=== PATIENT | male | born 1945 | race Caucasian/White ===

== ENCOUNTER 2023-05-25 16:01 | Inpatient (IN) | payer MEDICARE, SELFPAY ==
[2023-05-25] VITALS (23 sets, daily range): BP systolic 87–148; BP diastolic 46–87; BMI 23.5; BMI 20.4
--- NOTE | 2023-05-25 11:13 | ED.GENMED ---
History of Present Illness
General
Chief Complaint: Weakness
Source: patient
Exam Limitations: none
Time Seen by Provider: 05/25/23 11:00
Travel History
Have you had any contact with someone who has COVID-19?: No
Do you have any symptoms of coronavirus? Fever > 100 degrees, chills, cough, shortness of breath, sore throat, loss of taste or smell, muscle aches, or headache?: No
History of Present Illness
History of Present Illness:
See MDM
Past History
Past History
ED Past Medical History: CAD, GERD, Hypercholesterolemia and Other (Mild MR, anemia, diverticulosis)
ED Past Surgical History: Cholecystectomy and Other (Gastric ulcer, cataracts)
Social History
Tobacco: Non-smoker
Alcohol: None
Drug: None
Living: assisted living
Phy Exam
Physical Exam
Physical Exam:
See MDM
Course
Orders/Labs/Results
Orders:
Orders
05/25/23 10:58
Electrocardiogram (*1) Urgent
Reason for Study: Chest Pain
EKG- Treatment ONCE
05/25/23 11:09
CT Pelvis W/o Iv Contrast Urgent
Comment:
Reason For Exam: fall, left hip pain and hematoma
05/25/23 11:11
CT Head W/o Iv Contrast Urgent
Comment:
Reason For Exam: fall, head injury
05/25/23 11:13
Urinalysis Reflex To Culture Urgent
Date Specimen was Collected: 05/25/23
Time Specimen was Collected: 11:46
05/25/23 11:49
Complete Blood Count/With Diff Urgent
Comprehensive Metabolic Panel Urgent
Troponin I Urgent
05/25/23 13:39
Acetaminophen [Tylenol] 650 mg PO NOW STA
Abnormal Lab Results
05/25/23
11:49
RBC 3.09 L 10^6/uL
(4.70-6.10)
Hgb 9.5 L g/dL
(13.0-18.0)
Hct 26.8 L %
(39.0-52.0)
RDW 17.4 H %
(11.5-14.5)
Abs Immat Gran (auto) 0.1 H 10^3/uL
(0-0.05)
Absolute Neuts (auto) 8.3 H 10^3/uL
(1.4-6.5)
Absolute Lymphs (auto) 0.4 L 10^3/uL
(1.2-3.4)
Neutrophils % 88.5 H %
(42.2-75.2)
Lymphocytes % 4.3 L %
(20.5-51.1)
Sodium 130 L mmol/L
(135-145)
BUN 39 H mg/dl
(9-20)
Glucose 214 H mg/dl
(70-99)
Total Bilirubin 1.5 H mg/dl
(0.2-1.3)
ALT 69 H U/L
(0-50)
Total Protein 5.8 L g/dl
(6.3-8.2)
Albumin 3.4 L g/dl
(3.5-5.0)
05/25/23 11:49
05/25/23 11:49
Vital Signs
Initial and Last Documented VS:
Initial Vital Signs
Temp Pulse Resp Pulse Ox
97.3 F 58 20 99
05/25/23 10:51 05/25/23 10:51 05/25/23 10:51 05/25/23 10:51
Last Documented Vital Signs
Temp Pulse Resp Pulse Ox
97.3 F 62 10 97
05/25/23 10:51 05/25/23 11:50 05/25/23 11:50 05/25/23 11:50
MDM/Problems Addressed
Differential Diagnosis Includes:
HPI and MDM Narrative:
78-year-old male presenting with weakness and fatigue. He complains of dizziness. Patient does have cognitive impairment and not the greatest historian but he answers most questions appropriately. Patient does not remember falling. He does not
member if he hit his head or not. He complains of left hip pain. On exam, patient has large left hip hematoma. He is on Eliquis. Will obtain CT head and CT pelvis in addition to basic blood work and urinalysis
Physical exam
General: Weak and fatigue
HEENT: protecting airway
Neck: appears supple
CV: No evidence of cyanosis. Regular rate and rhythm
Resp: No accessory muscle use. Lungs clear
Abd: Non-distended
Extremities: Large left posterior hip hematoma
Neuro: alert
Psych: Normal affect
Skin: Multiple bruises to upper extremities
Problems Addressed including Acute and Chronic Conditions affecting care:
1. Left hip trauma
Acuity: acute
Prognosis: stable
Details: Given the fall, will obtain CT head and pelvis
Updates
Blood work appears to be stable. Patient having trouble ambulating due to large thigh hematoma. No fracture on CT. Will admit for hemoglobin trending and pain control
Differential Diagnosis (but not limited to): Dehydration, UTI, hip fracture, hip hematoma
Testing considered: Chest x-ray
Drug therapy (if applicable): OTC meds, please see d/c instruction regarding Rx drugs
Amount and/or Complexity of Data Reviewed
Clinical info obtained from: Patient
External data reviewed: N/A
Labs I independently reviewed (but not limited to): Hemoglobin stable
Radiology: The CT scan was personally and independently reviewed. In addition, official CT report reviewed.
Pulse Ox: not hypoxic
EKG independently reviewed: Sinus rhythm, left axis, no STEMI
Design Draftsman: N/A
Critical Care: N/A
Risk of Complication:
Social Determinants of health: Good social support
Discussed with other providers: Hospitalist
Escalation of Care includes Admit/Obs: Given the large hematoma on Eliquis, will admit for hemoglobin trending and pain control
Occasional wrong word or 'sound a like' substitutions may have occurred due to the inherent limitations of voice recognition software. Read the chart carefully and recognize, using context, where substitutions have occurred.
*Critical Care Note
Total Time (30-74mins, 75-104mins- exclusive of procedures): Not Applicable
ED Attending Note
-
Portions of this chart may have been created with voice recognition software.� Occasional wrong word or��sound alike� substitutions may have occurred due to the inherent limitations of voice recognition software.
Discharge Plan
Departure
Patient Disposition: Admit
Date of Disposition: 05/25/23
Time of Disposition: 13:40
Admit to: Med/Surg
Presentation/result/management discussed w/ accepting MD/DO: Hospitalist
Discharge Problem:
Hematoma of left thigh, Frequent falls
Prescriptions:
No Action
lansoprazole [Prevacid] 30 MG capsule,delayed release(DR/EC)
30 mg PO DAILY
isosorbide mononitrate 30 MG tablet extended release 24 hr
30 mg PO DAILY
albuterol sulfate 2.5 MG/3 ML solution for nebulization
2.5 mg inhalation R Q4HPRN PRN (Reason: cough/wheeze)
dextromethorphan-guaifenesin 10 ML syrup
5 ml PO Q6HPRN PRN (Reason: cough)
alendronate 70 MG tablet
70 mg PO WE
atorvastatin 20 MG tablet
20 mg PO QPM
prednisone 5 MG tablet
5 mg PO DAILY
acetaminophen [Tylenol Extra Strength] 500 MG tablet
1,000 mg PO TIDPRN PRN (Reason: mild pain)
tamsulosin 0.4 MG capsule
0.4 mg PO QPM
ferrous sulfate [FeroSul] 325 MG tablet
325 mg PO BID
guaifenesin [Mucus Relief ER] 600 MG tablet extended release 12hr
600 mg PO BIDPRN PRN (Reason: cough/congestion)
levothyroxine 75 MCG tablet
75 mcg PO DAILY
furosemide 40 mg Tablet
40 mg PO DAILY
triamcinolone acetonide 0.5 % Cream
1 applic TOPICAL BID
fluorouracil 5 % Cream
1 applic TOPICAL BIDPRN PRN (Reason: actinic/solar keratoses)
calcium carbonate 600 mg calcium (1,500 mg) Tablet
600 mg PO QPM
finasteride 5 mg Tablet
5 mg PO DAILY
Eliquis 5 mg Tablet
5 mg PO BID
cholecalciferol (vitamin D3) [Vitamin D3] 25 mcg (1,000 unit) Tablet
25 mcg PO QPM
cephalexin 500 mg capsule
500 mg PO QID 10 Days Qty: 40 0RF
Referrals:
NONE,* [Active] -
Interventions
Interventions:
*Risk Screen - Suicide Last Done: 05/25/23 10:51
*General Assessment Last Done: 05/25/23 10:51
*Neglect/Abuse Screening Last Done: 05/25/23 10:51
ED- Fall Risk Assessment Last Done: 05/25/23 11:03
*ED COVID-19 Vaccine History Last Done: 05/25/23 11:03
ED- Cardiac Assessment Last Done: 05/25/23 11:03
ED-Musculoskeletal Assessment Last Done: 05/25/23 11:03
ED- Neurological Assessment Last Done: 05/25/23 11:03
ED- Pulmonary Assessment Last Done: 05/25/23 11:03
ED-Skin Assessment Last Done: 05/25/23 11:03
[2023-05-25 12:06] LABS: % Basophils 0.1 % (0-2); % Eosinophils 0.2 % (0-6); % Immature Granulocytes 0.5 % (0-0.5); % Lymphocytes 4.3 % (20.5-51.1); % Monocytes 6.4 % (1.7-9.3); % Neutrophils 88.5 % (42.2-75.2); Absolute Immature Granulocytes 0.1 10^3/uL (0-0.05); Absolute Lymphocytes 0.4 10^3/uL (1.2-3.4); Absolute Monocytes 0.6 10^3/uL (0.1-0.6); Absolute Neutrophils 8.3 10^3/uL (1.4-6.5); Hematocrit 26.8 % (39.0-52.0); Hemoglobin 9.5 g/dL (13.0-18.0); Mean Corp Hgb Conc. 35.4 g/dL (33.0-37.0); Mean Corpuscular Hgb 30.7 pg (27.0-31.0); Mean Corpuscular Volume 86.7 fL (80.0-94.0); Mean Platelet Volume 9.7 fL (7.4-10.4); Nucleated Red Blood Cells % 0 % (-); Platelet Count 136 10^3/uL (130-400); Red Blood Cell Count 3.09 10^6/uL (4.70-6.10); Red Cell Dist. Width 17.4 % (11.5-14.5); White Blood Cell Count 9.4 10^3/uL (4.8-10.8)
[2023-05-25 12:25] LABS: Troponin I < 0.012 ng/ml
[2023-05-25 12:30] LABS: ALT (SGPT) 69 U/L (0-50); AST (SGOT) 55 U/L (17-59); Albumin 3.4 g/dl (3.5-5.0); Alkaline Phosphatase 88 U/L (38-126); Blood Urea Nitrogen 39 mg/dl (9-20); Calcium 8.5 mg/dl (8.4-10.2); Carbon Dioxide 22 mmol/L (22-30); Chloride 102 mmol/L (98-107); Glucose 214 mg/dl (70-99); Sodium 130 mmol/L (135-145); Total Bilirubin 1.5 mg/dl (0.2-1.3); Total Protein 5.8 g/dl (6.3-8.2); eGFR > 60.00
[2023-05-25] MEDS: TYLENOL 650 MG PO ×2 (13:47→20:08)
[2023-05-25 14:12] LABS: Urine Albumin Negative (Neg - Trace); Urine Bilirubin Negative (Negative); Urine Character Clear (Clear); Urine Color Yellow; Urine Glucose Negative (Negative); Urine Ketone Negative (Negative); Urine Leukocyte Negative (Negative); Urine Nitrite Negative (Negative); Urine Occult Blood Negative (Negative); Urine Urobilinogen Negative (Neg - 1+)
--- NOTE | 2023-05-25 14:44 | HPS.HSE ---
Addendum entered and electronically signed by Ubaldo Pena MD 05/25/23 15:54:
78-year-old male with a past medical history of cognitive impairment, esophagitis, asthma, coronary artery disease, gastroesophageal reflux disease, mitral regurgitation, hyperlipidemia, hypothyroidism, and diabetes had a mechanical fall this
morning, resulting in a left-sided hematoma of the thigh. He is on Eliquis.
Will trend hemoglobin, hold Eliquis, pain control, PT/OT.
Patient was also noted to be hypothermic, rectal temperature 94.4. He has no signs of or symptoms of infection. Check procalcitonin, blood cultures, chest x-ray, urinalysis for completeness sake. Check TSH, a.m. cortisol.
Multiple phone calls were made to patient's brother and to the facility to check patient's CODE STATUS,we were unable to reach anyone.
I have personally seen and examined the patient, and agree with the plan of care as documented by COSTA Romero
Advance care planning discussed, patient is a full code.
All other issues as outlined by the advanced care practitioner.
Total time spent to see the patient on the floor, examine the patient, review data and lab results, discuss treatment plan with patient, nursing staff around 75 minutes.
Original Note:
Family Physician
-
Family Physician: NOT KNOW UNKNOWN - PT DOES
Chief Complaint
-
Fall left hip contusion left knee contusion left arm abrasion
History of Present Illness
78-year-old male from [facility] who states after breakfast this morning he fell onto his left side sustaining a left forearm abrasion, left hip contusion and left knee effusion/contusion. He is complaining of a headache. He is
hypothermic with a rectal temp of 94.1. He denies cough, chest pain, palpitations, shortness of breath. Patient is past medical history of right lower extremity cellulitis with sepsis and hypothermia December 2022 that did require pressors and
bear hugger, DVT right peroneal vein on Eliquis, mild mental retardation, CAD, mild MR, GERD, asthma, hypothyroidism, sinus bradycardia, BPH.
Medical History
Past Medical History
Past Medical History: Reports Other
Additional Past Medical History:
right lower extremity cellulitis with sepsis and hypothermia December 2022 that did require pressors and bear hugger, DVT right peroneal vein on Eliquis, mild mental retardation, CAD, mild MR, GERD, asthma, hypothyroidism, sinus bradycardia, BPH.
Past Surgical History: Reports None
Social History
Tobacco: Non-smoker
Alcohol: None
Drug: None
Personal: Single
Living: Other ([facility])
Employment: Retired
Family History
Family History: Unable to Obtain
Allergies / Home Medications
Allergies reflects when Allergies were last updated in [employer].
Home Medications with original date entered in [employer]
Allergy/Medication List:
Allergies
Allergy/AdvReac Type Severity Reaction Status Date / Time
No Known Allergies Allergy Verified 05/25/23 10:51
Home Medications
lansoprazole 30 mg capsule,delayed release (Prevacid) 30 mg PO DAILY Gastrointestinal issue 05/25/08
isosorbide mononitrate 30 mg tablet,extended release 24 hr 30 mg PO DAILY Heart disease/condition 06/11/15
acetaminophen 500 mg tablet (Tylenol Extra Strength) 1,000 mg PO TIDPRN PRN mild pain 08/10/20
alendronate 70 mg tablet 70 mg PO WE osteoporosis 08/10/20
ferrous sulfate 325 mg (65 mg iron) tablet (FeroSul) 325 mg PO BID Supplement 08/10/20
prednisone 5 mg tablet 5 mg PO DAILY Anti-inflammatory 08/10/20
tamsulosin 0.4 mg capsule 0.4 mg PO QPM Urinary issue 08/10/20
apixaban 5 mg tablet (Eliquis) 5 mg PO BID Blood Clot Prevention/Tx 01/21/23
cholecalciferol (vitamin D3) 25 mcg (1,000 unit) tablet (Vitamin D3) 25 mcg PO QPM Supplement 01/21/23
finasteride 5 mg tablet 5 mg PO DAILY Urinary Issue 01/21/23
fluorouracil 5 % topical cream 1 applic topical BIDPRN PRN actinic/solar keratoses 01/21/23
furosemide 40 mg tablet 40 mg PO DAILY Fluid Retention/Swelling 01/21/23
triamcinolone acetonide 0.5 % topical cream 1 applic topical BIDPRN PRN skin issuses 01/21/23
levothyroxine 88 mcg tablet (Synthroid) 88 mcg PO DAILY 05/25/23
metformin 500 mg tablet 500 mg PO BID 05/25/23
Review of Systems
-
History Source: Patient
A 12 point ROS was completed and negative except as noted: Yes
Constitutional: Reports Fever (Hypothermia) and Chills
EENT: Denies Sore Throat or Runny Nose
Respiratory: Denies Cough or Trouble Breathing
Cardiac: Denies Chest Pain, Diaphoresis, Palpitations or Syncope
Abdomen/GI: Denies Abdominal Pain, Nausea, Vomiting, Diarrhea, Constipated or Bloody Stools
: Denies Dysuria, Frequency, Flank Pain, Incontinence, Difficulty Voiding or Urgency
Musculoskeletal: Reports Joint Pain (Left hip contusion) and Joint Swelling (Left knee contusion/effusion)
Skin: Reports Other (Left forearm abrasion); Denies Itching or Rash
Neurological: Reports Headache; Denies Dizzy
Endocrine: Reports No Symptoms
Hematologic/Lymphatic: Reports No Symptoms
Psych: Reports Calm
Physical Exam
Vital Signs
Vital Signs
Temp Pulse Resp Pulse Ox
97.3 F 62 10 97
05/25/23 10:51 05/25/23 11:50 05/25/23 11:50 05/25/23 11:50
Physical Exam
General: Comfortable, Conversant, Fever (Hypothermia 94.1 rectal) and Chills; No Pain
HEENT: NormoCephalic, Anicteric, Moist mucous membranes, Atraumatic, PERRLA, [place] Conjunctivae, No Ptosis and Neck Nontender
Respiratory: Clear; No Wheezes, Rales or Rhonchi
Cardiac: S1/S2 and Regular Rhythm; No Murmur, Rub, Gallop or Peripheral Edema
Breast: Deferred by me
GI: Soft, Non Tender, Non Distended, Normal Bowel Sounds and No Hepatosplenomegaly
Rectal: Deferred by Provider
Genito-urinary: Deferred by me
Musculoskeletal: No Clubbing, No Cyanosis, Edema, Left Lower Extremity (Chronic +1), Edema, Right Lower Extremity (Chronic +1) and Other (Left thigh large hematoma, left knee contusion with effusion, left forearm abrasion from fall present on
admission); No Edema, Left Upper Extremity or Edema, Right Upper Extremity
Skin: Warm and Dry; No Rash or Jaundice
Neuro: AO x 3, No Motor Deficits, Nonfocal/grossly intact, Cranial Nerves Intact and No Sensory Deficits; No Slurred Speech, Facial Droop or Tremors
Psych: Calm
Laboratory Results
-
05/25/23 11:49
05/25/23 11:49
Laboratory Results
Total Bilirubin 1.5 mg/dl (0.2-1.3) H 05/25/23 11:49
AST 55 U/L (17-59) 05/25/23 11:49
ALT 69 U/L (0-50) H 05/25/23 11:49
Alkaline Phosphatase 88 U/L (38-126) 05/25/23 11:49
Troponin I < 0.012 ng/ml 05/25/23 11:49
Data Reviewed
-
CT Scan: Report Reviewed by me
Lab Data: Labs Reviewed by me
Impression/Plan
-
Impression/plan:
Inpatient IMU
#Acute hypothermia concern for sepsis
-Check CXR, blood cultures x 2, lactic acid
-Bear hugger
-Monitor off ABX
- check Procal
#Fall with Right THIGH HEMTOMA/Right KNEE EFFUSION on Eliquis
#Hx frequent falls/chronic ambulatory dysfunction(uses cane/walker at baseline)
#Chronic anemia-iron deficiency
-Hgb 9.5
-Follow H&H
CT pelvis without contrast: No acute abnormality small bilateral inguinal hernias
CT head: No acute intracranial abnormalities. Mild diffuse cortical and cerebellar atrophy
#Hx DVT right peroneal vein
-Eliquis
#Mild mental retardation-chronic
Patient oriented x3 is able to give history
#CAD
-Follows with Dr. Reardon as outpatient
-Continue Imdur 30 mg with hold parameters
#Mitral regurgitation
#GERD
-Continue Prevacid
#Asthma chronic�no acute exacerbation
-On chronic prednisone will hold on Stress dose steroids as BP stable
#Hypothyroidism
-Check TSH with free T4 reflex
-Continue Synthroid
#Hx sinus bradycardia
#BPH
Continue finasteride with hold parameters
Hx RLE cellulitis with sepsis December 2022
-Patient did require IV pressors, hypothermia protocol for this admission
DVT prophylaxis
Hold Eliquis
DNR
Unable to reach brother as phone number does not work refer to recent mission in January where other provider was also unable to reach brother it was confirmed at that time from the facility the patient was DNR
[2023-05-25 15:58] LABS: Lactic Acid 1.6 mmol/L (0.7-2.0)
[2023-05-25 16:22] LABS: COVID-19 Antigen Negative (Negative)
[2023-05-25 16:49] LABS: Procalcitonin < 0.05 ng/ml (0.0-0.25)
[2023-05-25] MEDS: NSS 1000 IV (17:12)
[2023-05-25] MEDS: ProAmatine 5 MG PO (17:12)
[2023-05-25 20:00] LABS: Glucose - Point of Care 81 mg/dl (70-99)
[2023-05-25] MEDS: GLUCOPHAGE 500 MG PO (20:08)
[2023-05-25] MEDS: FEOSOL 325 MG PO (20:08)
[2023-05-25] MEDS: FLOMAX 0.400000000000000022 MG PO (20:08)
[2023-05-25] MEDS: VITAMIN D3 (cholecalciferol) 25 MCG PO (20:08)
[2023-05-25] MEDS: NOVOLOG FLEXPEN-LOW RESISTANCE SC (20:41)
[2023-05-25 23:40] LABS: Hematocrit 23.7 % (39.0-52.0); Hemoglobin 8.6 g/dL (13.0-18.0)
[2023-05-26] VITALS (19 sets, daily range): BP systolic 78–130; BP diastolic 41–63; PULSE 67; O2SAT 97; BMI 20.5
[2023-05-26] MEDS: TYLENOL 650 MG PO ×6 (01:50→21:02)
[2023-05-26 04:39] LABS: Glucose - Point of Care 73 mg/dl (70-99)
[2023-05-26] MEDS: NSS 1000 IV ×2 (04:47→16:58)
[2023-05-26 04:52] LABS: % Basophils 0.2 % (0-2); % Eosinophils 1.7 % (0-6); % Immature Granulocytes 0.2 % (0-0.5); % Lymphocytes 16.9 % (20.5-51.1); Absolute Eosinophils 0.1 10^3/uL (0-0.7); Absolute Lymphocytes 0.7 10^3/uL (1.2-3.4); Absolute Monocytes 0.5 10^3/uL (0.1-0.6); Absolute Neutrophils 2.9 10^3/uL (1.4-6.5); Hematocrit 22.7 % (39.0-52.0); Hemoglobin 7.8 g/dL (13.0-18.0); Mean Corp Hgb Conc. 34.4 g/dL (33.0-37.0); Mean Corpuscular Hgb 30.8 pg (27.0-31.0); Mean Corpuscular Volume 89.7 fL (80.0-94.0); Mean Platelet Volume 9.9 fL (7.4-10.4); Nucleated Red Blood Cells % 0 % (-); Platelet Count 121 10^3/uL (130-400); Red Blood Cell Count 2.53 10^6/uL (4.70-6.10); Red Cell Dist. Width 16.9 % (11.5-14.5); White Blood Cell Count 4.2 10^3/uL (4.8-10.8)
[2023-05-26] MEDS: SYNTHROID 88 MCG PO (05:08)
[2023-05-26 05:33] LABS: ALT (SGPT) 52 U/L (0-50); AST (SGOT) 34 U/L (17-59); Albumin 2.4 g/dl (3.5-5.0); Alkaline Phosphatase 67 U/L (38-126); Blood Urea Nitrogen 34 mg/dl (9-20); Calcium 7.8 mg/dl (8.4-10.2); Carbon Dioxide 24 mmol/L (22-30); Chloride 106 mmol/L (98-107); Estimated Creatinine Clearance 59 ml/min; Glucose 65 mg/dl (70-99); Potassium 4.6 mmol/L (3.5-5.1); Sodium 134 mmol/L (135-145); Total Bilirubin 1.3 mg/dl (0.2-1.3); Total Protein 4.6 g/dl (6.3-8.2); eGFR > 60.00
[2023-05-26 05:47] LABS: Cortisol, Random 2.9 ug/dl; TSH 6.03 uIU/ml (0.47-4.68)
--- NOTE | 2023-05-26 06:05 | PTCARENOTE ---
Assumed care of Pt from ED RN. PT AAOx1 knew he was at hospital. Pt appears to be comfortable in bed, drowsy. In core shaper Pt BP became low, Midodrine given. Pt glucose 71 orange juice also given. Reassessment Pt appears more awake and alert.
Assessment care and vitals as charted.
[2023-05-26] MEDS: ProAmatine 5 MG PO ×3 (06:15→16:59)
[2023-05-26 06:26] LABS: Glucose - Point of Care 71 mg/dl (70-99)
[2023-05-26] MEDS: NOVOLOG FLEXPEN-LOW RESISTANCE SC ×3 (07:48→18:00)
[2023-05-26 07:56] LABS: Glucose - Point of Care 89 mg/dl (70-99)
--- NOTE | 2023-05-26 08:41 | W.PN.HOSP.TC ---
Today's Communication/Plan
-
see bold
Assessment / Plan
Assessment / Plan
HPI: 78-year-old male with a past medical history of cognitive impairment, esophagitis, asthma, coronary artery disease, gastroesophageal reflux disease, mitral regurgitation, hyperlipidemia, hypothyroidism, and diabetes had a mechanical fall this
morning, resulting in a left-sided hematoma of the thigh.� He is on Eliquis.
#Acute blood loss anemia exacerbated by Eliquis superimposed on chronic anemia
#Left thigh traumatic hematoma
#Left knee effusion
Pelvis CT negative for fracture or dislocation, left lower extremity CT confirms left thigh hematoma
Hemoglobin 8.1 today, was 9.5 upon admission
Hold Eliquis, pain control, trend hemoglobin
#Transient hypotension
Blood pressure improved on IV fluids and midodrine 5 mg 3 times daily
AM cortisol low, will do ACTH stim test
#Hypothyroidism
-TSH 6.03, increase from 88 mcg daily to 100 mcg daily
-Repeat thyroid function test in 4 to 6 weeks
#Hypothermia
Chest x-ray/urinalysis negative, procalcitonin negative
Continue Abbie hugger prn, increase Synthroid as above, supportive care
#Asthma chronic�no acute exacerbation
-On chronic prednisone
#Contaminated blood cultures
Monitor off antibiotics
#Mechanical fall
#Chronic ambulatory dysfunction(uses cane/walker at baseline)
Head CT negative, patient resides in longterm
PT/OT
#Hx DVT right peroneal vein
Hold Eliquis due to hematoma
#Chronic cognitive impairment
Patient resides in longterm
#CAD
Follows with Dr. Reardon as outpatient
Continue Imdur 30 mg with hold parameters � �
�� � � � � � � � � � � � � � � � � � � � � � � � � � � � � � � � � �
#Mitral regurgitation
#GERD
-Continue Prevacid
#BPH
Continue finasteride with hold parameters
DVT prophylaxis - SCDs
DNR as per advance directive
Total time spent to see the patient on the floor, examine the patient, review data and lab results, discuss treatment plan with patient, nursing staff around 55 minutes.
Physical Exam
General: No acute distress
HEENT: Normocephalic, Atraumatic, EOMI, MMM
Respiratory: Clear to Auscultation bilaterally
Cardiac: Normal S1/S2, Regular Rate and Rhythm
GI: Soft, Nontender, Nondistended, Normal Bowel Sounds
Extremities: No Clubbing, Cyanosis
Large left knee effusion, hematoma noted on left
Neuro: Slow to respond
Anticipated Discharge: > 48 hours
Subjective/Interval History
-
Date of Service: May 26, 2023
C/o left hip pain.
Objective Data
-
Labs:
Laboratory Results
05/25/23 05/26/23 05/26/23
23:28 04:29 04:29
WBC 4.2 L
Hgb 8.6 L 7.8 L Cancelled
Hct 23.7 L 22.7 L
Plt Count
Sodium
Potassium
Chloride
Carbon Dioxide
BUN
Creatinine
Glucose
Calcium
Total Bilirubin
AST
ALT
Alkaline Phosphatase
05/26/23 05/26/23
04:29 12:00
WBC
Hgb Pending
Hct Cancelled Pending
Plt Count 121 L
Sodium 134 L
Potassium 4.6
Chloride 106
Carbon Dioxide 24
BUN 34 H
Creatinine 1.0
Glucose 65 L
Calcium 7.8 L
Total Bilirubin 1.3
AST 34
ALT 52 H
Alkaline Phosphatase 67
Vital Signs:
Vital Signs
Temp Pulse Resp BP Pulse Ox
97.6 F 69 17 104/41 97
05/26/23 05:10 05/26/23 06:18 05/26/23 06:18 05/26/23 06:18 05/26/23 06:18
I&O
05/25/23 05/26/23 05/27/23
06:59 06:59 06:59
Intake Total 1360 / 1360
Output Total 850 / 850
Balance 510 / 510
[2023-05-26] MEDS: PROTONIX 40 MG PO (08:58)
[2023-05-26] MEDS: FEOSOL 325 MG PO ×2 (08:58→21:02)
[2023-05-26] MEDS: PROSCAR 5 MG PO (08:58)
[2023-05-26] MEDS: GLUCOPHAGE 500 MG PO ×2 (09:08→16:58)
[2023-05-26] MEDS: IMDUR (EXTENDED RELEASE) 30 MG PO (09:08)
[2023-05-26 12:30] LABS: Glucose - Point of Care 181 mg/dl (70-99)
[2023-05-26 13:40] LABS: Glucose - Point of Care 127 mg/dl (70-99)
[2023-05-26 14:04] LABS: Hemoglobin 8.1 g/dL (13.0-18.0)
--- NOTE | 2023-05-26 16:31 | CM ---
Patient from [facility] with Hx including cognitive impairment with Dx Acute blood loss anemia exacerbated by Eliquis superimposed on chronic anemia, Left thigh traumatic hematoma, Left knee effusion.
Spoke with Delfina, Health & Wellness nurse, [facility] (ph [phone]);
the patient resides in their 1 story facility with 3 LISET or ramp access, and has a shared bedroom.
He has been assisted with ADLs such as showering, and ambulates with his SPC.
The patient has poor mobility at baseline and a w/c is used for long distances.
He is able to feed himself.
DME - SPC, glucometer, w/c
VVN - prior [facility]
SNF - none
PCP - Marissa Whaley NP
Pharmacy - [facility] [address], [place]
Spoke with José Miguel Flores, Mechanical Dra[employer] [facility] (ph [phone]);
the patient has a Dx of mental retardation and has mild intellectual disability.
The patient fell on the day of admission and sustained a hematoma of his left forearm as well as his left thigh.
Discussed patient's current functional status; José Miguel said he is probably close to his baseline and she would prefer that the patient return to their facility with [facility] for SN/PT/OT.
The patient will need transport arranged and José Miguel will provide CC for w/c van transport.
The patient's brother Abdirashid Alcaraz is his POA and he resides in [place] - ph [phone]. José Miguel notified him that patient was in the hospital.
The phone for nurse report is [phone], fax [phone].
Referral placed for [facility].
Plan home to [facility], with transport arranged.
[2023-05-26] MEDS: FLOMAX 0.400000000000000022 MG PO (17:00)
[2023-05-26] MEDS: VITAMIN D3 (cholecalciferol) 25 MCG PO (17:00)
[2023-05-26 17:40] LABS: Glucose - Point of Care 114 mg/dl (70-99)
[2023-05-26 21:39] LABS: Glucose - Point of Care 125 mg/dl (70-99)
[2023-05-27] VITALS (10 sets, daily range): BP systolic 98–156; BP diastolic 46–68; BMI 21.0
--- NOTE | 2023-05-27 00:05 | PTCARENOTE ---
Assumed care of Pt from Day RN. Pt AAOX2 appears to be resting in bed comfortably. Pt had no complaints at that time. Pt temp has remained above goal. Pt Assessment, care and vitals as charted.
[2023-05-27] MEDS: TYLENOL 650 MG PO ×6 (01:19→21:10)
[2023-05-27] MEDS: NSS 1000 IV ×2 (01:19→10:03)
[2023-05-27] MEDS: SYNTHROID 100 MCG PO (05:33)
[2023-05-27 07:54] LABS: Glucose - Point of Care 75 mg/dl (70-99)
--- NOTE | 2023-05-27 08:01 | W.PN.HOSP.TC ---
Addendum entered and electronically signed by Ubaldo Pena MD 05/27/23 12:41:
Will start prednisone 20 mg daily for adrenal insufficiency.
Cancel endocrinology consult.
Original Note:
Today's Communication/Plan
-
Stable for telemetry
Assessment / Plan
Assessment / Plan
HPI: 78-year-old male with a past medical history of cognitive impairment, esophagitis, asthma, coronary artery disease, gastroesophageal reflux disease, mitral regurgitation, hyperlipidemia, hypothyroidism, and diabetes had a mechanical fall this
morning, resulting in a left-sided hematoma of the thigh.� He is on Eliquis.
#Acute blood loss anemia exacerbated by Eliquis superimposed on chronic anemia
#Left thigh traumatic hematoma
#Left knee effusion
Pelvis CT negative for fracture or dislocation, left lower extremity CT confirms left thigh hematoma, left forearm x-rays negative
Hemoglobin 7.7 today, was 7.8, was 9.5 upon admission
Hold Eliquis, pain control, trend hemoglobin
#Transient hypotension
Blood pressure improved on IV fluids and midodrine 5 mg 3 times daily, will stop IVFs
AM cortisol low, ACTH stim test concerning for adrenal sufficiency, will consult endocrinology
#Hypothyroidism
-TSH 6.03, increase from 88 mcg daily to 100 mcg daily
-Repeat thyroid function test in 4 to 6 weeks
#Hypothermia
Chest x-ray/urinalysis negative, procalcitonin negative
Continue Abbie hugger prn, increase Synthroid as above, supportive care
#Asthma chronic�no acute exacerbation
-On chronic prednisone
#Contaminated blood cultures
Monitor off antibiotics
#Mechanical fall
#Chronic ambulatory dysfunction(uses cane/walker at baseline)
Head CT negative, patient resides in correction
PT/OT
#Hx DVT right peroneal vein
Hold Eliquis due to hematoma
#Chronic cognitive impairment
Patient resides in correction
#CAD
Follows with Dr. Reardon as outpatient
Continue Imdur 30 mg with hold parameters � �
�� � � � � � � � � � � � � � � � � � � � � � � � � � � � � � � � � �
#Mitral regurgitation
#GERD
-Continue Prevacid
#BPH
Continue finasteride with hold parameters
DVT prophylaxis - SCDs
DNR as per advance directive
Total time spent to see the patient on the floor, examine the patient, review data and lab results, discuss treatment plan with patient, nursing staff around 51 minutes.
Physical Exam
General: No acute distress
HEENT: Normocephalic, Atraumatic, EOMI, MMM
Respiratory: Clear to Auscultation bilaterally
Cardiac: Normal S1/S2, Regular Rate and Rhythm
GI: Soft, Nontender, Nondistended, Normal Bowel Sounds
Extremities: No Clubbing, Cyanosis
Large left knee effusion, hematoma noted on left
Neuro: Slow to respond
Anticipated Discharge: 24 - 48 hours
Subjective/Interval History
-
Date of Service: May 27, 2023
Patient complains of left hip pain.
Objective Data
-
Labs:
Laboratory Results
05/27/23
06:00
WBC Pending
Hgb Pending
Hct Pending
Plt Count Pending
Sodium Pending
Potassium Pending
Chloride Pending
Carbon Dioxide Pending
BUN Pending
Creatinine Pending
Glucose Pending
Calcium Pending
Total Bilirubin Pending
AST Pending
ALT Pending
Alkaline Phosphatase Pending
Vital Signs:
Vital Signs
Temp Pulse Resp BP Pulse Ox
97.5 F 68 15 98/52 95
05/27/23 03:38 05/27/23 06:01 05/27/23 06:01 05/27/23 06:01 05/27/23 06:01
I&O
05/26/23 05/27/23 05/28/23
06:59 06:59 06:59
Intake Total 1360 / 1360 840 / 840
Output Total 850 / 850 825 / 825
Balance 510 / 510
[2023-05-27 08:22] LABS: % Basophils 0.7 % (0-2); % Eosinophils 1.8 % (0-6); % Immature Granulocytes 0.5 % (0-0.5); % Lymphocytes 11.3 % (20.5-51.1); % Monocytes 14.9 % (1.7-9.3); % Neutrophils 70.8 % (42.2-75.2); Absolute Eosinophils 0.1 10^3/uL (0-0.7); Absolute Lymphocytes 0.5 10^3/uL (1.2-3.4); Absolute Monocytes 0.7 10^3/uL (0.1-0.6); Absolute Neutrophils 3.1 10^3/uL (1.4-6.5); Hematocrit 22.3 % (39.0-52.0); Hemoglobin 7.7 g/dL (13.0-18.0); Mean Corp Hgb Conc. 34.5 g/dL (33.0-37.0); Mean Corpuscular Hgb 30.7 pg (27.0-31.0); Mean Corpuscular Volume 88.8 fL (80.0-94.0); Mean Platelet Volume 9.9 fL (7.4-10.4); Nucleated Red Blood Cells % 0 % (-); Platelet Count 122 10^3/uL (130-400); Red Blood Cell Count 2.51 10^6/uL (4.70-6.10); Red Cell Dist. Width 17.6 % (11.5-14.5); White Blood Cell Count 4.4 10^3/uL (4.8-10.8)
[2023-05-27 08:47] LABS: ALT (SGPT) 46 U/L (0-50); AST (SGOT) 31 U/L (17-59); Albumin 2.6 g/dl (3.5-5.0); Alkaline Phosphatase 71 U/L (38-126); Blood Urea Nitrogen 25 mg/dl (9-20); Carbon Dioxide 21 mmol/L (22-30); Chloride 108 mmol/L (98-107); Estimated Creatinine Clearance 67 ml/min; Glucose 75 mg/dl (70-99); Potassium 4.7 mmol/L (3.5-5.1); Sodium 133 mmol/L (135-145); Total Bilirubin 1.6 mg/dl (0.2-1.3); Total Protein 4.9 g/dl (6.3-8.2); eGFR > 60.00
[2023-05-27] MEDS: PROSCAR 5 MG PO (08:55)
[2023-05-27] MEDS: GLUCOPHAGE 500 MG PO ×2 (08:55→16:06)
[2023-05-27] MEDS: ProAmatine 5 MG PO ×3 (08:55→16:06)
[2023-05-27] MEDS: CORTROSYN 0.25 MG IV (08:59)
[2023-05-27] MEDS: IMDUR (EXTENDED RELEASE) 30 MG PO (08:59)
[2023-05-27] MEDS: FEOSOL 325 MG PO ×2 (08:59→21:10)
[2023-05-27] MEDS: PROTONIX 40 MG PO (08:59)
[2023-05-27] MEDS: NSS (PRESERVATIVE FREE) 1 ML IV (09:00)
[2023-05-27 09:08] LABS: ACTH Stim Cortisol 0 Min 8.1 ug/dl
[2023-05-27] MEDS: NOVOLOG FLEXPEN-LOW RESISTANCE SC ×2 (09:10→12:43)
[2023-05-27 10:35] LABS: ACTH Stim Cortisol 30 Min 12.9 ug/dl
[2023-05-27 11:39] LABS: ACTH Stim Cortisol 60 Min 13.4 ug/dl
[2023-05-27 12:54] LABS: Glucose - Point of Care 111 mg/dl (70-99)
[2023-05-27] MEDS: DELTASONE 20 MG PO (13:13)
[2023-05-27 16:59] LABS: Glucose - Point of Care 181 mg/dl (70-99)
[2023-05-27] MEDS: FLOMAX 0.400000000000000022 MG PO (17:18)
[2023-05-27] MEDS: VITAMIN D3 (cholecalciferol) 25 MCG PO (17:18)
[2023-05-27] MEDS: NOVOLOG FLEXPEN-LOW RESISTANCE 1 UNITS SC (17:40)
[2023-05-27 21:22] LABS: Glucose - Point of Care 192 mg/dl (70-99)
[2023-05-28] VITALS (9 sets, daily range): BP systolic 129–156; BP diastolic 59–77; BMI 20.8
[2023-05-28] MEDS: TYLENOL PO ×2 (00:20→05:03)
[2023-05-28] MEDS: SYNTHROID 100 MCG PO (05:38)
--- NOTE | 2023-05-28 07:28 | W.PN.HOSP.TC ---
Today's Communication/Plan
-
Transfuse 1 unit of packed red blood cells today
Assessment / Plan
Assessment / Plan
HPI: 78-year-old male with a past medical history of cognitive impairment, esophagitis, asthma, coronary artery disease, gastroesophageal reflux disease, mitral regurgitation, hyperlipidemia, hypothyroidism, and diabetes had a mechanical fall this
morning, resulting in a left-sided hematoma of the thigh.� He is on Eliquis.
#Acute blood loss anemia exacerbated by Eliquis superimposed on chronic anemia
#Left thigh traumatic hematoma
#Left knee effusion
Pelvis CT negative for fracture or dislocation, left lower extremity CT confirms left thigh hematoma, left forearm x-rays negative
Hemoglobin 7.4 today, was 7.7, was 7.8, was 9.5 upon admission
Transfuse 1 unit of packed red blood cells today since he is symptomatic,
Hold Eliquis, pain control, trend hemoglobin
#Adrenal insufficiency
Patient is on prednisone 5 mg daily for his asthma
Will increase to prednisone 20 mg daily due to hypotension, hypothermia
#Transient hypotension
Resolved status post IV fluids, midodrine
#Hypothyroidism
-TSH 6.03, increased from 88 mcg daily to 100 mcg daily
-Repeat thyroid function test in 4 to 6 weeks
#Hypothermia
Chest x-ray/urinalysis negative, procalcitonin negative
Continue Abbie hugger prn, increase Synthroid as above, prednisone as above
#Asthma chronic�no acute exacerbation
-On chronic prednisone
#Contaminated blood cultures
Monitor off antibiotics
#Mechanical fall
#Chronic ambulatory dysfunction(uses cane/walker at baseline)
Head CT negative, patient resides in care home
PT/OT
#Hx DVT right peroneal vein
Hold Eliquis due to hematoma
#Chronic cognitive impairment
Patient resides in care home
#CAD
Follows with Dr. Reardon as outpatient
Continue Imdur 30 mg with hold parameters � �
�� � � � � � � � � � � � � � � � � � � � � � � � � � � � � � � � � �
#Mitral regurgitation
#GERD
-Continue Prevacid
#BPH
Continue finasteride with hold parameters
DVT prophylaxis - SCDs
DNR as per advance directive
Total time spent to see the patient on the floor, examine the patient, review data and lab results, discuss treatment plan with patient, nursing staff around 52 minutes.
Physical Exam
General: No acute distress
HEENT: Normocephalic, Atraumatic, EOMI, MMM
Respiratory: Clear to Auscultation bilaterally
Cardiac: Normal S1/S2, Regular Rate and Rhythm
GI: Soft, Nontender, Nondistended, Normal Bowel Sounds
Extremities: No Clubbing, Cyanosis
Large left knee effusion, hematoma noted on left
Neuro: Slow to respond
Anticipated Discharge: 24 - 48 hours
Subjective/Interval History
-
Date of Service: May 28, 2023
Patient reports lightheadedness.
Objective Data
-
Labs:
Laboratory Results
05/28/23
06:00
WBC Pending
Hgb Pending
Hct Pending
Plt Count Pending
Sodium Pending
Potassium Pending
Chloride Pending
Carbon Dioxide Pending
BUN Pending
Creatinine Pending
Glucose Pending
Calcium Pending
Total Bilirubin Pending
AST Pending
ALT Pending
Alkaline Phosphatase Pending
Vital Signs:
Vital Signs
Temp Pulse Resp BP Pulse Ox
97.4 F 91 18 154/74 96
05/28/23 03:33 05/28/23 03:33 05/28/23 03:33 05/28/23 03:33 05/28/23 03:33
I&O
05/27/23 05/28/23 05/29/23
06:59 06:59 06:59
Intake Total 840 / 840 360 / 360
Output Total 825 / 825 1730 / 1730
Balance -1370 / -1370
[2023-05-28 07:42] LABS: Glucose - Point of Care 106 mg/dl (70-99)
[2023-05-28] MEDS: NOVOLOG FLEXPEN-LOW RESISTANCE SC ×2 (08:04→11:51)
[2023-05-28 08:39] LABS: % Basophils 0.2 % (0-2); % Eosinophils 0.2 % (0-6); % Immature Granulocytes 0.5 % (0-0.5); % Lymphocytes 7.4 % (20.5-51.1); % Monocytes 14.5 % (1.7-9.3); % Neutrophils 77.2 % (42.2-75.2); Absolute Lymphocytes 0.5 10^3/uL (1.2-3.4); Absolute Monocytes 0.9 10^3/uL (0.1-0.6); Absolute Neutrophils 4.9 10^3/uL (1.4-6.5); Hemoglobin 7.4 g/dL (13.0-18.0); Mean Corp Hgb Conc. 35.4 g/dL (33.0-37.0); Mean Corpuscular Hgb 31.5 pg (27.0-31.0); Mean Corpuscular Volume 88.9 fL (80.0-94.0); Mean Platelet Volume 10.2 fL (7.4-10.4); Nucleated Red Blood Cells % 0 % (-); Platelet Count 143 10^3/uL (130-400); Red Blood Cell Count 2.35 10^6/uL (4.70-6.10); Red Cell Dist. Width 17.6 % (11.5-14.5); White Blood Cell Count 6.3 10^3/uL (4.8-10.8)
[2023-05-28 08:42] LABS: Hematocrit 20.9 % (39.0-52.0)
[2023-05-28] MEDS: GLUCOPHAGE 500 MG PO ×2 (09:04→17:03)
[2023-05-28] MEDS: FEOSOL 325 MG PO ×2 (09:04→19:27)
[2023-05-28] MEDS: IMDUR (EXTENDED RELEASE) 30 MG PO (09:04)
[2023-05-28] MEDS: PROTONIX 40 MG PO (09:04)
[2023-05-28] MEDS: TYLENOL 650 MG PO ×5 (09:04→23:56)
[2023-05-28] MEDS: PROSCAR 5 MG PO (09:06)
[2023-05-28] MEDS: DELTASONE 20 MG PO (09:06)
[2023-05-28 09:15] LABS: ALT (SGPT) 38 U/L (0-50); AST (SGOT) 25 U/L (17-59); Albumin 2.7 g/dl (3.5-5.0); Alkaline Phosphatase 78 U/L (38-126); Blood Urea Nitrogen 19 mg/dl (9-20); Calcium 8.7 mg/dl (8.4-10.2); Carbon Dioxide 20 mmol/L (22-30); Chloride 108 mmol/L (98-107); Estimated Creatinine Clearance 67 ml/min; Glucose 93 mg/dl (70-99); Iron 36 ug/dl (49-181); Potassium 4.8 mmol/L (3.5-5.1); Sodium 136 mmol/L (135-145); Total Bilirubin 1.6 mg/dl (0.2-1.3); Total Protein 5.1 g/dl (6.3-8.2); eGFR > 60.00
[2023-05-28 09:24] LABS: Percent Saturation 13 % (20-50); Total Iron Binding Capacity 267 ug/dl (261-462)
[2023-05-28 11:48] LABS: Glucose - Point of Care 91 mg/dl (70-99)
[2023-05-28 16:37] LABS: Glucose - Point of Care 211 mg/dl (70-99)
[2023-05-28] MEDS: VITAMIN D3 (cholecalciferol) 25 MCG PO (17:03)
[2023-05-28] MEDS: NOVOLOG FLEXPEN-LOW RESISTANCE 2 UNITS SC (17:03)
[2023-05-28] MEDS: FLOMAX 0.400000000000000022 MG PO (17:03)
[2023-05-28 21:43] LABS: Glucose - Point of Care 125 mg/dl (70-99)
[2023-05-29 03:26] VITALS: BP 130/63
[2023-05-29] MEDS: TYLENOL PO ×3 (05:04→17:35)
[2023-05-29] MEDS: SYNTHROID 100 MCG PO (05:42)
[2023-05-29 07:00] VITALS: BP 132/57
[2023-05-29 07:45] LABS: Glucose - Point of Care 87 mg/dl (70-99)
[2023-05-29 07:50] LABS: Hematocrit 23.4 % (39.0-52.0); Hemoglobin 8.1 g/dL (13.0-18.0); Mean Corp Hgb Conc. 34.6 g/dL (33.0-37.0); Mean Corpuscular Hgb 30.7 pg (27.0-31.0); Mean Corpuscular Volume 88.6 fL (80.0-94.0); Mean Platelet Volume 10.3 fL (7.4-10.4); Platelet Count 145 10^3/uL (130-400); Red Blood Cell Count 2.64 10^6/uL (4.70-6.10); Red Cell Dist. Width 17.2 % (11.5-14.5); White Blood Cell Count 6.2 10^3/uL (4.8-10.8)
[2023-05-29 08:08] LABS: Blood Urea Nitrogen 27 mg/dl (9-20); Calcium 8.8 mg/dl (8.4-10.2); Carbon Dioxide 21 mmol/L (22-30); Chloride 109 mmol/L (98-107); Estimated Creatinine Clearance 55 ml/min; Glucose 87 mg/dl (70-99); Magnesium 1.7 mg/dl (1.6-2.3); Phosphorus 3.4 mg/dl (2.5-4.5); Potassium 4.7 mmol/L (3.5-5.1); Sodium 137 mmol/L (135-145); eGFR > 60.00
--- NOTE | 2023-05-29 08:14 | W.PN.HOSP.TC ---
Today's Communication/Plan
-
see bold
Assessment / Plan
Assessment / Plan
HPI: 78-year-old male with a past medical history of cognitive impairment, esophagitis, asthma, coronary artery disease, gastroesophageal reflux disease, mitral regurgitation, hyperlipidemia, hypothyroidism, and diabetes had a mechanical fall this
morning, resulting in a left-sided hematoma of the thigh.� He is on Eliquis.
#Acute blood loss anemia exacerbated by Eliquis superimposed on chronic anemia
#Left thigh traumatic hematoma
#Left knee effusion
Pelvis CT negative for fracture or dislocation, left lower extremity CT confirms left thigh hematoma, left forearm x-rays negative
Received 1 unit of blood on 05/28, Hemoglobin 8.1 today, was 7.4, was 7.7, was 7.8, was 9.5 upon admission
Hold Eliquis, pain control, trend hemoglobin
#Adrenal insufficiency
Patient is on prednisone 5 mg daily for his asthma
S/p prednisone 20 mg daily due to hypotension, hypothermia
Wean to prednisone 10 mg daily, plan to resume 5 mg upon dc
#Transient hypotension
Resolved status post IV fluids, midodrine
#Hypothyroidism
-TSH 6.03, increased from 88 mcg daily to 100 mcg daily
-Repeat thyroid function test in 4 to 6 weeks
#Hypothermia
Chest x-ray/urinalysis negative, procalcitonin negative
Resolved, increase Synthroid as above, prednisone as above
#Asthma chronic�no acute exacerbation
-On chronic prednisone
#Contaminated blood cultures
Monitor off antibiotics
#Mechanical fall
#Chronic ambulatory dysfunction(uses cane/walker at baseline)
Head CT negative, patient resides in intermediate
PT/OT
#Hx DVT right peroneal vein
Hold Eliquis due to hematoma
#Chronic cognitive impairment
Patient resides in intermediate
#CAD
Follows with Dr. Reardon as outpatient
Continue Imdur 30 mg with hold parameters � �
�� � � � � � � � � � � � � � � � � � � � � � � � � � � � � � � � � �
#Mitral regurgitation
#GERD
-Continue Prevacid
#BPH
Continue finasteride with hold parameters
DVT prophylaxis - SCDs
DNR as per advance directive
Physical Exam
General: No acute distress
HEENT: Normocephalic, Atraumatic, EOMI, MMM
Respiratory: Clear to Auscultation bilaterally
Cardiac: Normal S1/S2, Regular Rate and Rhythm
GI: Soft, Nontender, Nondistended, Normal Bowel Sounds
Extremities: No Clubbing, Cyanosis
Large left knee effusion, hematoma noted on left
Neuro: Slow to respond
Anticipated Discharge: Within 24 hours
Subjective/Interval History
-
Date of Service: May 29, 2023
Feels better.
Objective Data
-
Labs:
Laboratory Results
05/29/23
07:11
WBC 6.2
Hgb 8.1 L
Hct 23.4 L
Plt Count 145
Sodium 137
Potassium 4.7
Chloride 109 H
Carbon Dioxide 21 L
BUN 27 H
Creatinine 1.1
Glucose 87
Calcium 8.8
Vital Signs:
Vital Signs
Temp Pulse Resp BP Pulse Ox
97.9 F 67 16 130/63 96
05/29/23 03:26 05/29/23 03:26 05/29/23 03:26 05/29/23 03:26 05/29/23 03:26
I&O
05/28/23 05/29/23 05/30/23
06:59 06:59 06:59
Intake Total 360 / 360 850 / 850
Output Total 1730 / 1730 1405 / 1405
Balance -1370 / -1370 -555 / -555
[2023-05-29] MEDS: NOVOLOG FLEXPEN-LOW RESISTANCE SC ×2 (08:55→12:32)
[2023-05-29] MEDS: TYLENOL 650 MG PO ×2 (10:26→17:37)
[2023-05-29] MEDS: DELTASONE 20 MG PO (10:26)
[2023-05-29] MEDS: GLUCOPHAGE 500 MG PO ×2 (10:32→17:38)
[2023-05-29] MEDS: FEOSOL 325 MG PO (10:32)
[2023-05-29] MEDS: IMDUR (EXTENDED RELEASE) 30 MG PO (10:33)
[2023-05-29] MEDS: PROTONIX 40 MG PO (10:33)
[2023-05-29] MEDS: PROSCAR 5 MG PO (10:33)
[2023-05-29 11:00] VITALS: BP 121/67
[2023-05-29 11:17] VITALS: BP 144/75; PULSE 80; O2SAT 98
[2023-05-29 11:57] LABS: Glucose - Point of Care 92 mg/dl (70-99)
--- NOTE | 2023-05-29 12:55 | CM ---
Addendum entered by Gena Garnett 05/29/23 14:18:
CM received call from [facility], reports the facility has no nurse over the weekend and would want to ensure patient is stable to return if over the weekend. Per José Miguel, she will be calling nurse for an update on patient. José Miguel
reports facility does provide transportation but will not accept patient over weekend unless stable. José Miguel provided general number for CM to call over weekend if needed- [phone].
Original Note:
Patient seen bedside, reports no new concerns. Per Hospitalist, possible discharge tomorrow or Thursday. CM left voicemail for José Miguel Flores, [facility] at [facility] [phone] in regards to patients upcoming
discharge. CM awaiting return call from José Miguel, will follow for discharge planning needs.
Plan; return to [facility], patient will require transport, per previous CM note, [facility] will provide CC for w/c van transport. Referral sent to [facility]
The phone for nurse report is [phone], fax [phone].
[2023-05-29 15:00] VITALS: BP 132/62
[2023-05-29 17:16] LABS: Glucose - Point of Care 189 mg/dl (70-99)
[2023-05-29] MEDS: NOVOLOG FLEXPEN-LOW RESISTANCE 1 UNITS SC (17:37)
[2023-05-29] MEDS: FLOMAX 0.400000000000000022 MG PO (17:38)
[2023-05-29] MEDS: VITAMIN C 500 MG PO (17:38)
[2023-05-29] MEDS: VITAMIN D3 (cholecalciferol) 25 MCG PO (17:39)
[2023-05-29 21:33] LABS: Glucose - Point of Care 242 mg/dl (70-99)
[2023-05-29 22:47] VITALS: BP 130/59
[2023-05-30] MEDS: TYLENOL PO ×2 (00:05→04:15)
[2023-05-30 02:07] LABS: Transferrin 191 mg/dL (200-360)
[2023-05-30] MEDS: TYLENOL 650 MG PO ×5 (05:24→19:37)
[2023-05-30] MEDS: SYNTHROID 100 MCG PO (05:26)
[2023-05-30 07:00] VITALS: BP 128/56
[2023-05-30 08:03] LABS: Glucose - Point of Care 94 mg/dl (70-99)
[2023-05-30] MEDS: NOVOLOG FLEXPEN-LOW RESISTANCE SC (08:31)
--- NOTE | 2023-05-30 09:01 | W.PN.HOSP.TC ---
Today's Communication/Plan
-
Discharge back to [facility] on Thursday
Assessment / Plan
Assessment / Plan
HPI: 78-year-old male with a past medical history of cognitive impairment, esophagitis, asthma, coronary artery disease, gastroesophageal reflux disease, mitral regurgitation, hyperlipidemia, hypothyroidism, and diabetes had a mechanical fall this
morning, resulting in a left-sided hematoma of the thigh.� He is on Eliquis.
#Acute blood loss anemia exacerbated by Eliquis superimposed on chronic anemia
#Left thigh traumatic hematoma
#Left knee effusion
Pelvis CT negative for fracture or dislocation, left lower extremity CT confirms left thigh hematoma, left forearm x-rays negative
Received 1 unit of blood on 05/28, Hemoglobin 8.4 today, was 7.4, was 7.7, was 7.8, was 9.5 upon admission
Hold Eliquis, pain control, trend hemoglobin
#Adrenal insufficiency
Patient is on prednisone 5 mg daily for his asthma
S/p prednisone 20 mg daily due to hypotension, hypothermia
Wean to prednisone 10 mg daily, plan to resume 5 mg upon dc
#Transient hypotension
Resolved status post IV fluids, midodrine
#Hypothyroidism
-TSH 6.03, increased from 88 mcg daily to 100 mcg daily
-Repeat thyroid function test in 4 to 6 weeks
#Hypothermia
Chest x-ray/urinalysis negative, procalcitonin negative
Resolved, increase Synthroid as above, prednisone as above
#Asthma chronic�no acute exacerbation
-On chronic prednisone
#Contaminated blood cultures
Monitor off antibiotics
#Mechanical fall
#Chronic ambulatory dysfunction(uses cane/walker at baseline)
Head CT negative, [facility] in [facility]
PT/OT
#Hx DVT right peroneal vein
Hold Eliquis due to hematoma
Check lower extremity Dopplers�patient may not need to be on Eliquis anymore
#Chronic cognitive impairment
[facility] resides in [facility]
#CAD
Follows with Dr. Reardon as outpatient
Continue Imdur 30 mg with hold parameters � �
�� � � � � � � � � � � � � � � � � � � � � � � � � � � � � � � � � �
#Mitral regurgitation
#GERD
-Continue Prevacid
#BPH
Continue finasteride with hold parameters
DVT prophylaxis - SCDs
DNR as per advance directive
Physical Exam
General: No acute distress
HEENT: Normocephalic, Atraumatic, EOMI, MMM
Respiratory: Clear to Auscultation bilaterally
Cardiac: Normal S1/S2, Regular Rate and Rhythm
GI: Soft, Nontender, Nondistended, Normal Bowel Sounds
Extremities: No Clubbing, Cyanosis
Large left knee effusion, hematoma noted on left
Neuro: Slow to respond
Anticipated Discharge: 24 - 48 hours
Subjective/Interval History
-
Date of Service: May 30, 2023
No acute events.
Objective Data
-
Labs:
Laboratory Results
05/30/23
08:19
WBC Pending
Hgb Pending
Hct Pending
Plt Count Pending
Sodium Pending
Potassium Pending
Chloride Pending
Carbon Dioxide Pending
BUN Pending
Creatinine Pending
Glucose Pending
Calcium Pending
Vital Signs:
Vital Signs
Temp Pulse Resp BP Pulse Ox
97.1 F 66 18 130/59 100
05/29/23 22:47 05/29/23 22:47 05/29/23 22:47 05/29/23 22:47 05/29/23 22:47
I&O
05/29/23 05/30/23 05/31/23
06:59 06:59 06:59
Intake Total 850 / 850 1400 / 1400
Output Total 1405 / 1405 1450 / 1450
Balance -555 / -555 -50 / -50
[2023-05-30 09:04] LABS: Hematocrit 24.1 % (39.0-52.0); Hemoglobin 8.5 g/dL (13.0-18.0); Mean Corp Hgb Conc. 35.3 g/dL (33.0-37.0); Mean Platelet Volume 9.9 fL (7.4-10.4); Platelet Count 181 10^3/uL (130-400); Red Blood Cell Count 2.74 10^6/uL (4.70-6.10); Red Cell Dist. Width 17.4 % (11.5-14.5)
[2023-05-30 09:34] LABS: Blood Urea Nitrogen 33 mg/dl (9-20); Calcium 8.9 mg/dl (8.4-10.2); Carbon Dioxide 22 mmol/L (22-30); Chloride 107 mmol/L (98-107); Estimated Creatinine Clearance 60 ml/min; Glucose 91 mg/dl (70-99); Potassium 4.9 mmol/L (3.5-5.1); Sodium 137 mmol/L (135-145); eGFR > 60.00
[2023-05-30] MEDS: IMDUR (EXTENDED RELEASE) 30 MG PO (09:40)
[2023-05-30] MEDS: PROTONIX 40 MG PO (09:42)
[2023-05-30] MEDS: PROSCAR 5 MG PO (09:42)
[2023-05-30] MEDS: DELTASONE 10 MG PO (09:42)
[2023-05-30] MEDS: GLUCOPHAGE 500 MG PO ×2 (09:42→17:51)
--- NOTE | 2023-05-30 10:20 | CM ---
Addendum entered by Pauline Morel 05/30/23 12:59:
TC to [facility], spoke with Flo, unable to accept back until Thursday.
Addendum entered by Pauline Morel 05/30/23 11:51:
Left Message for Lilliana at [facility], await tcb.
Addendum entered by Pauline Morel 05/30/23 11:37:
Again attempted to contact facility re d/c today. Await TCB.
Original Note:
Left VM for [facility] [phone] re d/c today.
Await TCB.
Need to see if they are transporting.
[facility]
The phone for nurse report is [phone], fax [phone].
--- NOTE | 2023-05-30 10:42 | PTCARENOTE ---
Assumed care of pt from previous nurse. Pt denies pain. Dressing placed to left arm abrasion, some bloody drainage noted. Pt with swelling and bruising to left knee and left upper thigh. Dressing to left upper thigh intact. Pt call [facility] is within
reach, pt rings kristian. Will cont to monitor.
[2023-05-30 11:52] LABS: Glucose - Point of Care 167 mg/dl (70-99)
[2023-05-30 13:20] LABS: Glucose - Point of Care 153 mg/dl (70-99)
[2023-05-30] MEDS: NOVOLOG FLEXPEN-LOW RESISTANCE 1 UNITS SC ×2 (13:24→17:53)
[2023-05-30] MEDS: FEOSOL 325 MG PO (13:25)
[2023-05-30] MEDS: VITAMIN C 500 MG PO (13:25)
[2023-05-30 15:00] VITALS: BP 146/68
[2023-05-30 17:16] LABS: Glucose - Point of Care 163 mg/dl (70-99)
[2023-05-30] MEDS: VITAMIN D3 (cholecalciferol) 25 MCG PO (17:52)
[2023-05-30] MEDS: FLOMAX 0.400000000000000022 MG PO (17:52)
[2023-05-30 23:00] VITALS: BP 150/67
[2023-05-31] MEDS: TYLENOL PO ×3 (01:03→23:56)
[2023-05-31] MEDS: SYNTHROID 100 MCG PO (05:46)
[2023-05-31 07:00] VITALS: BP 159/67
[2023-05-31 07:15] LABS: Glucose - Point of Care 87 mg/dl (70-99)
[2023-05-31] MEDS: NOVOLOG FLEXPEN-LOW RESISTANCE SC ×2 (07:31→12:24)
[2023-05-31 08:06] LABS: Hematocrit 26.1 % (39.0-52.0); Hemoglobin 8.8 g/dL (13.0-18.0); Mean Corp Hgb Conc. 33.7 g/dL (33.0-37.0); Mean Corpuscular Hgb 29.9 pg (27.0-31.0); Mean Corpuscular Volume 88.8 fL (80.0-94.0); Mean Platelet Volume 9.6 fL (7.4-10.4); Platelet Count 220 10^3/uL (130-400); Red Blood Cell Count 2.94 10^6/uL (4.70-6.10); Red Cell Dist. Width 17.3 % (11.5-14.5); White Blood Cell Count 5.7 10^3/uL (4.8-10.8)
--- NOTE | 2023-05-31 08:37 | W.PN.HOSP.TC ---
Today's Communication/Plan
-
Medically stable for discharge
care home won't accept back until Thursday
Assessment / Plan
Assessment / Plan
HPI: 78-year-old male with a past medical history of cognitive impairment, esophagitis, asthma, coronary artery disease, gastroesophageal reflux disease, mitral regurgitation, hyperlipidemia, hypothyroidism, and diabetes had a mechanical fall this
morning, resulting in a left-sided hematoma of the thigh.� He is on Eliquis.
#Acute blood loss anemia exacerbated by Eliquis superimposed on chronic anemia
#Left thigh traumatic hematoma
#Left knee effusion
Pelvis CT negative for fracture or dislocation, left lower extremity CT confirms left thigh hematoma, left forearm x-rays negative
Received 1 unit of blood on 05/28, Hemoglobin 8.8 today, was 8.5, was 8.1, was 7.4, was 7.7, was 7.8, was 9.5 upon admission
Medically stable for discharge, alf will not accept until Thursday
#Adrenal insufficiency
Patient is on prednisone 5 mg daily for his asthma
S/p prednisone 20 mg daily due to hypotension, hypothermia
Currently on prednisone 10 mg daily, decrease back to 5 mg today
#Transient hypotension
Resolved status post IV fluids, midodrine
#Hypothyroidism
-TSH 6.03, increased synthroid from 88 mcg daily to 100 mcg daily
-Repeat thyroid function test in 4 to 6 weeks
#Hypothermia
Chest x-ray/urinalysis negative, procalcitonin negative
Resolved, increase Synthroid as above, prednisone as above
#Asthma chronic�no acute exacerbation
-On chronic prednisone
#Contaminated blood cultures
Monitor off antibiotics
#Mechanical fall
#Chronic ambulatory dysfunction(uses cane/walker at baseline)
Head CT negative, patient resides in alf
PT/OT
#Hx DVT right peroneal vein
Hold Eliquis due to hematoma
2/3�lower extremity Dopplers negative, permanently discontinue Eliquis due to fall risk
#Chronic cognitive impairment
Patient resides in alf
#CAD
Follows with Dr. Reardon as outpatient
Continue Imdur 30 mg with hold parameters � �
�� � � � � � � � � � � � � � � � � � � � � � � � � � � � � � � � � �
#Mitral regurgitation
#GERD
-Continue Prevacid
#BPH
Continue finasteride with hold parameters
DVT prophylaxis - SCDs
DNR as per advance directive
Physical Exam
General: No acute distress
HEENT: Normocephalic, Atraumatic, EOMI, MMM
Respiratory: Clear to Auscultation bilaterally
Cardiac: Normal S1/S2, Regular Rate and Rhythm
GI: Soft, Nontender, Nondistended, Normal Bowel Sounds
Extremities: No Clubbing, Cyanosis
Large left knee effusion, hematoma noted on left
Neuro: Slow to respond
Anticipated Discharge: Within 24 hours
Subjective/Interval History
-
Date of Service: May 31, 2023
Patient reports feeling better. Denies lightheadedness.
Objective Data
-
Labs:
Laboratory Results
05/31/23
07:28
WBC 5.7
Hgb 8.8 L
Hct 26.1 L
Plt Count 220 D
Vital Signs:
Vital Signs
Temp Pulse Resp BP Pulse Ox
97.5 F 59 20 150/67 100
05/30/23 23:00 05/30/23 23:00 05/30/23 23:00 05/30/23 23:00 05/30/23 23:00
I&O
05/30/23 05/31/23 06/01/23
06:59 06:59 06:59
Intake Total 1400 / 1400 1200 / 1200
Output Total 1450 / 1450 1700 / 1700
Balance -50 / -50 -500 / -500
[2023-05-31] MEDS: TYLENOL 650 MG PO ×4 (09:14→20:41)
[2023-05-31] MEDS: GLUCOPHAGE 500 MG PO ×2 (09:14→17:19)
[2023-05-31] MEDS: PROTONIX 40 MG PO (09:14)
[2023-05-31] MEDS: DELTASONE 10 MG PO (09:14)
[2023-05-31] MEDS: IMDUR (EXTENDED RELEASE) 30 MG PO (09:15)
[2023-05-31] MEDS: PROSCAR 5 MG PO (09:15)
--- NOTE | 2023-05-31 11:44 | PTCARENOTE ---
Assumed care of pt from previous, pt denies pain. Pt call [facility] is within reach, pt rings kristian. will cont to monitor.
[2023-05-31 12:03] LABS: Glucose - Point of Care 131 mg/dl (70-99)
[2023-05-31] MEDS: VITAMIN C 500 MG PO (13:12)
[2023-05-31] MEDS: FEOSOL 325 MG PO (13:12)
--- NOTE | 2023-05-31 13:15 | W.DCSUMMARY ---
Addendum entered and electronically signed by Ubaldo Pena MD 06/08/23 15:39:
Yes, _hypothermia__ is related to/associated with/due to _hypothyroidism.
Addendum entered and electronically signed by Larry Varner MD 06/01/23 11:49:
Patient discharge date changed to May 31 patient seen and considered stable for discharge by this examiner nothing additional to add to discharge summary dictated yesterday
Original Note:
Discharge Summary
Discharge Data
Date of Admission: 05/25/23
Date of Discharge: 06/01/23
-
Pending Results: No
Hospital Course
Primary diagnoses:
Acute blood loss anemia exacerbated by Eliquis superimposed on chronic anemia
Left thigh hematoma
Left knee effusion
Adrenal sufficiency
Transient hypotension
Hypothermia
Hypothyroidism
Asthma on chronic prednisone
Contaminated blood cultures
Mechanical fall
History of deep vein thrombosis of the right peroneal vein
Secondary diagnoses:
Chronic cognitive impairment
Coronary artery disease
Mitral regurgitation
Gastroesophageal reflux disease
Benign prostatic hypertrophy
Small bilateral inguinal hernias
Imaging:
CT pelvis:
No acute abnormalities
Small bilateral inguinal hernias.
CT left lower extremity:
2.5 x 5.5 x 10.0 cm hematoma in the anterior and anteromedial soft tissues of the left leg at and below the level of the left knee
B/l LE Dopplers:
No evidence of deep venous thrombosis in the bilateral lower extremities as described above.
Hospital course:
78-year-old male with past medical history of right lower extremity DVT on Eliquis, cognitive impairment, hypothermia, asthma on chronic prednisone, and hypothyroidism was admitted for a large left thigh hematoma secondary to a traumatic mechanical
fall while on Eliquis.
CT of the left lower extremity demonstrated a hematoma at the left thigh. Patient's Eliquis was held. He received supportive treatment with pain control. His hemoglobin was 9.5 upon admission, and dropped as low as 7.4. He was transfused 1 unit
of packed red blood cells, his hemoglobin improved to 8.1, remained stable at 8.8.
Patient was found to be hypotensive. This resolved with IV fluids and midodrine. Midodrine was discontinued.
He was also found to be hypothermic. He has hypothyroidism, TSH was elevated. His Synthroid was increased from 88 mcg to 100 mcg. He needs repeat TFTs in 4-6 weeks.
Patient is on chronic prednisone for his asthma. He was found to have adrenal sufficiency. He is usually on prednisone 5 mg daily. He was treated with prednisone 20 mg daily, then weaned down to his home dose of 5 mg daily.
Patient was on Eliquis prior to admission for history of right lower extremity DVT. Dopplers on 05/30/2023 were negative for DVT. He is at high risk for mechanical falls, therefore we recommend permanently discontinuing Eliquis. He will be
discharged on aspirin 81 mg twice a day for DVT prophylaxis.
Patient's multiple medical conditions have been optimized. He is medically stable for discharge back to his alf. He needs to follow-up with his primary care doctor in 1 week.
Disposition: Back to his alf with home PT
Discharge planning: Required 43 minutes
Discharge Plan
-
Patient Disposition: Home with Home Care
Discharge Diagnosis/Procedures: Mechanical fall with large left thigh hematoma, left knee effusion, acute blood loss anemia requiring 1 unit of packed red blood cells, adrenal sufficiency, hypotension, hypothermia, cognitive impairment, type 2
diabetes
Condition: Good
Diet: Regular
Activity: As tolerated
Other Services: PT
Activity Restrictions/Additional Instructions:
TSH 6.03, increased synthroid/levothyroxine from 88 mcg daily to 100 mcg daily.
Patient needs repeat thyroid function test in 4 to 6 weeks.
Lower extremity ultrasound on 05/30/2023 was negative for deep vein thrombosis.
Recommend permanently stopping Eliquis secondary to recurrent falls.
Would instead take aspirin 81 mg twice a day for blood clot prevention.
Referrals:
UNKNOWN - PT DOES,NOT KNOW [Family Provider] -
Prescriptions:
New
levothyroxine 100 mcg Tablet
100 mcg PO DAILY AT 0700 Qty: 0 0RF
ascorbic acid (vitamin C) [Vitamin C] 500 mg Tablet
500 mg PO NOON Qty: 0 0RF
ferrous sulfate [FeroSul] 325 mg (65 mg iron) Tablet
325 mg PO NOON Qty: 30 0RF
aspirin 81 mg capsule
81 mg PO BID Qty: 60 0RF
Continued
lansoprazole [Prevacid] 30 MG capsule,delayed release(DR/EC)
30 mg PO DAILY
isosorbide mononitrate 30 MG tablet extended release 24 hr
30 mg PO DAILY
alendronate 70 MG tablet
70 mg PO WE
prednisone 5 MG tablet
5 mg PO DAILY
tamsulosin 0.4 MG capsule
0.4 mg PO QPM
furosemide 40 mg Tablet
40 mg PO DAILY
triamcinolone acetonide 0.5 % Cream
1 applic TOPICAL BIDPRN PRN (Reason: skin issuses)
fluorouracil 5 % Cream
1 applic TOPICAL BIDPRN PRN (Reason: actinic/solar keratoses)
finasteride 5 mg Tablet
5 mg PO DAILY
cholecalciferol (vitamin D3) [Vitamin D3] 25 mcg (1,000 unit) Tablet
25 mcg PO QPM
metformin 500 mg Tablet
500 mg PO BID
Changed
acetaminophen [Tylenol Extra Strength] 500 MG tablet
1,000 mg PO TID Qty: 0 0RF
Discontinued
ferrous sulfate [FeroSul] 325 MG tablet
325 mg PO BID
Eliquis 5 mg Tablet
5 mg PO BID
levothyroxine [Synthroid] 88 mcg Tablet
88 mcg PO DAILY
Discharge Orders:
Discharge Patient (As Directed); Ordered 05/31/23
Ordered By: Ubaldo Pena
[2023-05-31 15:00] VITALS: BP 144/68
--- NOTE | 2023-05-31 15:39 | CM ---
Per TC with Flo from [facility] they cannot accept patient back until Thursday.
The patient will need transport arranged and [facility] will provide CC for w/c van transport.
The patient's brother Abdirashid Alcaraz is his POA and he resides in [place] - ph [phone]. [facility] notified him that patient was in the hospital.
[facility]
Report # [phone]
.
[2023-05-31 16:48] LABS: Glucose - Point of Care 196 mg/dl (70-99)
[2023-05-31] MEDS: FLOMAX 0.400000000000000022 MG PO (17:19)
[2023-05-31] MEDS: NOVOLOG FLEXPEN-LOW RESISTANCE 1 UNITS SC (17:19)
[2023-05-31] MEDS: VITAMIN D3 (cholecalciferol) 25 MCG PO (17:19)
[2023-05-31 21:47] LABS: Glucose - Point of Care 75 mg/dl (70-99)
[2023-05-31 23:30] VITALS: BP 140/59
[2023-06-01] MEDS: TYLENOL PO (05:13)
[2023-06-01] MEDS: SYNTHROID 100 MCG PO (06:16)
[2023-06-01 07:30] VITALS: BP 159/65
[2023-06-01 08:42] LABS: Glucose - Point of Care 101 mg/dl (70-99)
[2023-06-01] MEDS: NOVOLOG FLEXPEN-LOW RESISTANCE SC ×2 (08:51→11:36)
[2023-06-01] MEDS: IMDUR (EXTENDED RELEASE) 30 MG PO (09:01)
[2023-06-01] MEDS: PROTONIX 40 MG PO (09:01)
[2023-06-01] MEDS: GLUCOPHAGE 500 MG PO (09:01)
[2023-06-01] MEDS: TYLENOL 650 MG PO ×2 (09:01→11:41)
[2023-06-01] MEDS: PROSCAR 5 MG PO (09:01)
[2023-06-01] MEDS: DELTASONE 5 MG PO (09:01)
--- NOTE | 2023-06-01 09:29 | CM ---
Addendum entered by Pauline Morel 06/01/23 11:51:
Shahida aware of pickup time 2 pm and scripts resent.
Addendum entered by Pauline Morel 06/01/23 11:10:
Clinicals faxed, scripts resent. await ambulance transport time.
Addendum entered by Pauline Morel 06/01/23 10:46:
TC from [facility] Butler RN, requesting clincials be faxed over and stated pharmacy did not receive medication orders.
Addendum entered by Pauline Morel 06/01/23 10:22:
Spoke with Flo, he will have Lailalia reach out to CM.
Addendum entered by Pauline Morel 06/01/23 09:32:
[facility]

Original Note:
Left VM for Lailania re discharge. await TCB.
[facility]
Report # [phone]
.
--- NOTE | 2023-06-01 09:56 | W.PN.UPDATE ---
Update Note
Progress Note Update
Patient seen and examined on date of proposed discharge and considered stable for discharge back to [facility] discharge management and paperwork performed yesterday by Dr. Moran. I saw the patient examined the patient on this date and considered
stable for discharge
[2023-06-01 11:35] LABS: Glucose - Point of Care 130 mg/dl (70-99)
[2023-06-01] MEDS: VITAMIN C 500 MG PO (11:41)
[2023-06-01] MEDS: FEOSOL 325 MG PO (11:41)
--- NOTE | 2023-06-08 15:27 | PN.CDI ---
CDI
- -
CDI:
Physician Documentation Request
Admit Date: 05/25/23 16:01
Dear Doctor Do,
Please review the following and provide your response in the progress notes.
Clinical Indicators:
- 05/25 Temp on admission 94.4 - rectal
- 05/26 TSH 6.03
- 05/31 PN 'Hypothermia...increased synthroid'
- 05/31 DC Summary 'He was also found to be hypothermic. He has hypothyroidism, TSH was elevated'
Please clarify the relationship between these conditions:
Yes, _hypothermia__ is related to/associated with/due to _hypothyroid__.
No, _hypothermia__ is not related to/associated with/due to _hypothyroid__ but it is due to . (Please specify)
Unable to determine
Use of terms such as suspected, likely, concern for, or probable (associated with a specific diagnosis that is being evaluated, monitored, or treated as if it exists) are acceptable and can be coded in the inpatient setting, when documented at the
time of discharge.
Thank you,
Sruthi Hyatt RN
CDI Specialist
Please use your independent medical judgment in providing your response.
== END 2023-06-01 14:03 | disposition home health service (06) | DRG 644 ==
LOC: 4 WEST ACU 16:01
PROVIDERS: Clinical Nurse Specialist Family Health; ADMITTING PHYSICIAN Family Medicine; ATTENDING PHYSICIAN Internal Medicine; EMERGENCY PHYSICIAN Student in an Organized Health Care Education/Training Program
PROC: 30233N1 Transfusion of Nonautologous Red Blood Cells into Peripheral Vein, Percutaneous Approach (ICD-10-PCS; 2023-05-28)
DX: E03.9 Hypothyroidism, unspecified (principal); D62 Acute posthemorrhagic anemia; D68.32 Hemorrhagic disorder due to extrinsic circulating anticoagulants; E27.40 Unspecified adrenocortical insufficiency; R68.0 Hypothermia, not associated with low environmental temperature; S70.12XA Contusion of left thigh, initial encounter; S70.02XA Contusion of left hip, initial encounter; S40.812A Abrasion of left upper arm, initial encounter; S80.02XA Contusion of left knee, initial encounter; M25.461 Effusion, right knee; E61.1 Iron deficiency; K21.9 Gastro-esophageal reflux disease without esophagitis; I34.0 Nonrheumatic mitral (valve) insufficiency; J45.909 Unspecified asthma, uncomplicated; N40.0 Benign prostatic hyperplasia without lower urinary tract symptoms; I25.10 Atherosclerotic heart disease of native coronary artery without angina pectoris; K40.20 Bilateral inguinal hernia, without obstruction or gangrene, not specified as recurrent; E11.36 Type 2 diabetes mellitus with diabetic cataract; F70 Mild intellectual disabilities; S09.90XA Unspecified injury of head, initial encounter; Z79.01 Long term (current) use of anticoagulants; Z66 Do not resuscitate; W19.XXXA Unspecified fall, initial encounter
CPT/HCPCS: 70450; 71046; 72192; 73090; 73700; 80048; 80053; 81003; 82533; 82728; 82962; 83036; 83540; 83550; 83605; 83735; 84100; 84145; 84443; 84466; 84484; 85014; 85018; 85025; 85027; 86850; 86900; 86901; 86920; 87040; 87070; 87149; 87205; 87502; 87811; 93005; 93970; 97163; 97166; 97530; 99285; P9016

== ENCOUNTER 2023-06-22 15:35 | Inpatient (IN) | payer MEDICARE, SELFPAY ==
[2023-06-22] VITALS (80 sets, daily range): BP systolic 68–180; BP diastolic 37–147; BMI 24.8; BMI 26.6
[2023-06-22 11:16] LABS: % Basophils 0.1 % (0-2); % Eosinophils 0.4 % (0-6); % Immature Granulocytes 0.4 % (0-0.5); % Lymphocytes 5.4 % (20.5-51.1); % Monocytes 7.5 % (1.7-9.3); % Neutrophils 86.2 % (42.2-75.2); Absolute Lymphocytes 0.5 10^3/uL (1.2-3.4); Absolute Monocytes 0.7 10^3/uL (0.1-0.6); Absolute Neutrophils 8.1 10^3/uL (1.4-6.5); Hematocrit 27.5 % (39.0-52.0); Hemoglobin 9.4 g/dL (13.0-18.0); Mean Corp Hgb Conc. 34.2 g/dL (33.0-37.0); Mean Corpuscular Hgb 30.7 pg (27.0-31.0); Mean Corpuscular Volume 89.9 fL (80.0-94.0); Mean Platelet Volume 9.3 fL (7.4-10.4); Nucleated Red Blood Cells % 0 % (-); Platelet Count 146 10^3/uL (130-400); Red Blood Cell Count 3.06 10^6/uL (4.70-6.10); Red Cell Dist. Width 18.2 % (11.5-14.5); White Blood Cell Count 9.4 10^3/uL (4.8-10.8)
[2023-06-22 11:37] LABS: NT-proBNP 186 pg/ml; Troponin I 0.033 ng/ml
[2023-06-22 11:39] LABS: ALT (SGPT) 34 U/L (0-50); AST (SGOT) 35 U/L (17-59); Albumin 3.2 g/dl (3.5-5.0); Alkaline Phosphatase 87 U/L (38-126); Blood Urea Nitrogen 35 mg/dl (9-20); Calcium 7.9 mg/dl (8.4-10.2); Carbon Dioxide 26 mmol/L (22-30); Chloride 100 mmol/L (98-107); Estimated Creatinine Clearance 76 ml/min; Glucose 325 mg/dl (70-99); Potassium 4.5 mmol/L (3.5-5.1); Sodium 130 mmol/L (135-145); Total Bilirubin 1.5 mg/dl (0.2-1.3); Total Protein 5.9 g/dl (6.3-8.2); eGFR > 60.00
--- NOTE | 2023-06-22 12:22 | ED.GENMED ---
History of Present Illness
<Jay Pierce Jr., PA-C - Last Filed: 06/22/23 14:31>
General
Chief Complaint: Chest Pain
Source: patient, ambulance crew and prison
Exam Limitations: none
Time Seen by Provider: 06/22/23 11:16
Nursing documentation reviewed up to this point in time: agreed with
Travel History
Have you had any contact with someone who has COVID-19?: No
Do you have any symptoms of coronavirus? Fever > 100 degrees, chills, cough, shortness of breath, sore throat, loss of taste or smell, muscle aches, or headache?: No
History of Present Illness
History of Present Illness:
78-year-old male with past medical history of mild MR, CAD hypertension hyperlipidemia, venous insufficiency presenting to the emergency department today with concerns from his correction where he woke up this morning having chest discomfort. Also
the notices slightly off his baseline. Arrival here patient's temperature was low. He was only having complaints of central chest pain without radiation no shortness of breath no nausea vomiting no upper respiratory symptoms. Did not feel fevers.
Past History
<Jay Pierce Jr., PA-C - Last Filed: 06/22/23 14:31>
Past History
ED Past Medical History: CAD, GERD, Hypercholesterolemia and Other (Mild MR, anemia, diverticulosis)
ED Past Surgical History: Cholecystectomy and Other (Gastric ulcer, cataracts)
Social History
Tobacco: Non-smoker
Alcohol: None
Drug: None
Living: assisted living
Review of Systems
<Jay Pierce Jr., PA-C - Last Filed: 06/22/23 14:31>
Review of Systems
Allergies reviewed?: Yes
All Other Systems: ROS reviewed and negative except as documented in HPI and ROS
Phy Exam
<Jay Pierce Jr., PA-C - Last Filed: 06/22/23 14:31>
Physical Exam
Physical Exam:
GENERAL: Alert , in no apparent distress
EYE: pupils equal and reactive
NECK: Supple, no significant adenopathy.
ENT: o/p clr, mmm.
CARDIAC: Regular rate and rhythm .
LUNGS: Clear breath sounds bilaterally, no acute respiratory distress, no wheezes/rales/rhonchi
ABDOMEN: Soft, without focal tenderness, no r/g, no cvat
NEUROLOGICAL: Alert and oriented, no focal neuro deficits
SKIN: Skin is somewhat cool but dry, skin intact.
MUSCULOSKELETAL: No edema, well perfused.
PSYCH: Normal and appropriate interaction.
Scores
<Jay Pierce Jr., PA-C - Last Filed: 06/22/23 14:31>
Heart Score for Chest Pain Patients
STEMI patient?: No
History: Moderately Suspicious
ECG: Normal
Age: >/= 65 years
Risk Factors: >/= 3 Risk Factors or History of CAD
Troponin: </= Normal Limit
Heart Score for Chest Pain Patients: 5
Heart Score Risk: 20.3% MACE over next 6 weeks
Course
<Jay Pierce Jr., PA-C - Last Filed: 06/22/23 14:31>
Orders/Labs/Results
Orders:
Orders
06/22/23 11:06
Electrocardiogram (*1) Urgent
Reason for Study: Chest Pain
EKG- Treatment ONCE
06/22/23 11:08
Complete Blood Count/With Diff Urgent
Comprehensive Metabolic Panel Urgent
Free T4 Urgent
Comment: ADD ON
NT-proBNP Urgent
TSH Urgent
Comment: ADD ON
Troponin I Urgent
06/22/23 11:33
Lactic Acid Urgent
Blood Culture Q30M
[facility] Source: Blood/Venous
Specimen Description:
Blood Culture Q30M
[facility] Source: Blood/Venous
Specimen Description:
06/22/23 11:39
Warming [Thermal Regulation-Treatment] ONCE
Mode:: Automatic
Type of thermoregulation:: Heating
PATIENT'S Goal Temperature:: 96.8 F (36 C)
Comments/Additional Instructions:: Temperature and skin assessment per unit protocol
Chest X-ray Portable [CR Chest Portable - 1 View] Urgent
Comment:
Reason For Exam: cp
Reason Study Needs to be Portable: Patient Unstable
06/22/23 11:42
Add On- LAB Urgent
Tests Added?: tsh free t4
06/22/23 11:45
Aspirin 325 mg PO NOW STA
06/22/23 12:23
0.9% Sodium Chloride 1000 ml [Nss] 1,000 ml IV BOLUS
06/22/23 12:31
CT Chest Pe Study Urgent
Comment:
Reason For Exam: cp, fever, sob
CT Head W/o Iv Contrast Urgent
Comment:
Reason For Exam: ams
Urinalysis Reflex To Culture Urgent
Date Specimen was Collected: 06/22/23
Time Specimen was Collected: 12:19
Piperacillin/Tazo 3.375 Gram [Zosyn] 3.375 gram in 50 ml IV NOW
06/22/23 13:00
NORepinephrine 4 MG/250 ML [Levophed] 4 mg in 250 ml IV PER PROTOCOL
Initial dose in mcg/min, then titrate:: 5
Titrate to keep:: MAP > 65 mmHg
Titrate by mcg/min:: 1-2 mcg/min
Frequency of titrations (minutes):: 5
Maximum dose in ICU in mcg/min:: 30
Maximum dose in IMU in mcg/min:: 8
Maximum dose in IVU in mcg/min:: 4
Begin to taper infusion when:: Remained at goal for 4hrs
Taper by mcg/min:: 1-2 mcg/min
Frequency of taper (minutes) if patient maintains goal:: 30
Taper to off?: Yes
If infusion off & no longer maintaining goal:: Contact Provider
06/22/23 13:03
Hydrocortisone Sod Succinate [Solu-Cortef] 100 mg IV NOW STA
06/22/23 13:07
ABG [Arterial Blood Gas] Urgent
%Oxygen/Room Air: 90
Abnormal Lab Results
06/22/23 06/22/23 06/22/23
11:08 12:31 12:59
RBC 3.06 L 10^6/uL
(4.70-6.10)
Hgb 9.4 L g/dL
(13.0-18.0)
Hct 27.5 L %
(39.0-52.0)
RDW 18.2 H %
(11.5-14.5)
Absolute Neuts (auto) 8.1 H 10^3/uL
(1.4-6.5)
Absolute Lymphs (auto) 0.5 L 10^3/uL
(1.2-3.4)
Absolute Monos (auto) 0.7 H 10^3/uL
(0.1-0.6)
Neutrophils % 86.2 H %
(42.2-75.2)
Lymphocytes % 5.4 L %
(20.5-51.1)
pH
HCO3
ABG O2 Sat (Measured)
Sodium 130 L mmol/L
(135-145)
BUN 35 H mg/dl
(9-20)
Glucose 325 H mg/dl
(70-99)
Calcium 7.9 L mg/dl
(8.4-10.2)
Total Bilirubin 1.5 H mg/dl
(0.2-1.3)
Total Protein 5.9 L g/dl
(6.3-8.2)
Albumin 3.2 L g/dl
(3.5-5.0)
Urine Glucose 1+ A
(Negative)
POC Glucose 291 H mg/dl
(70-99)
06/22/23
13:07
RBC
Hgb
Hct
RDW
Absolute Neuts (auto)
Absolute Lymphs (auto)
Absolute Monos (auto)
Neutrophils %
Lymphocytes %
pH 7.30 L
(7.35-7.45)
HCO3 20.7 L mmol/L
(21-28)
ABG O2 Sat (Measured) 98.4 H %
(94-98)
Sodium
BUN
Glucose
Calcium
Total Bilirubin
Total Protein
Albumin
Urine Glucose
POC Glucose
06/22/23 11:08
06/22/23 11:08
Vital Signs
Initial and Last Documented VS:
Initial Vital Signs
Pulse Resp BP Pulse Ox
67 16 119/60 97
06/22/23 11:06 06/22/23 11:06 06/22/23 11:06 06/22/23 11:06
Last Documented Vital Signs
Temp Pulse Resp BP Pulse Ox
94.1 F L 76 17 149/53 87
06/22/23 14:00 06/22/23 14:15 06/22/23 14:15 06/22/23 14:15 06/22/23 14:15
<Harjit Gipson MD - Last Filed: 06/22/23 14:18>
Orders/Labs/Results
Orders:
Orders
06/22/23 11:06
Electrocardiogram (*1) Urgent
Reason for Study: Chest Pain
EKG- Treatment ONCE
06/22/23 11:08
Complete Blood Count/With Diff Urgent
Comprehensive Metabolic Panel Urgent
Free T4 Urgent
Comment: ADD ON
NT-proBNP Urgent
TSH Urgent
Comment: ADD ON
Troponin I Urgent
06/22/23 11:33
Lactic Acid Urgent
Blood Culture Q30M
[facility] Source: Blood/Venous
Specimen Description:
Blood Culture Q30M
[facility] Source: Blood/Venous
Specimen Description:
06/22/23 11:39
Warming [Thermal Regulation-Treatment] ONCE
Mode:: Automatic
Type of thermoregulation:: Heating
PATIENT'S Goal Temperature:: 96.8 F (36 C)
Comments/Additional Instructions:: Temperature and skin assessment per unit protocol
Chest X-ray Portable [CR Chest Portable - 1 View] Urgent
Comment:
Reason For Exam: cp
Reason Study Needs to be Portable: Patient Unstable
06/22/23 11:42
Add On- LAB Urgent
Tests Added?: tsh free t4
06/22/23 11:45
Aspirin 325 mg PO NOW STA
06/22/23 12:23
0.9% Sodium Chloride 1000 ml [Nss] 1,000 ml IV BOLUS
06/22/23 12:31
CT Chest Pe Study Urgent
Comment:
Reason For Exam: cp, fever, sob
CT Head W/o Iv Contrast Urgent
Comment:
Reason For Exam: ams
Urinalysis Reflex To Culture Urgent
Date Specimen was Collected: 06/22/23
Time Specimen was Collected: 12:19
Piperacillin/Tazo 3.375 Gram [Zosyn] 3.375 gram in 50 ml IV NOW
06/22/23 13:00
NORepinephrine 4 MG/250 ML [Levophed] 4 mg in 250 ml IV PER PROTOCOL
Initial dose in mcg/min, then titrate:: 5
Titrate to keep:: MAP > 65 mmHg
Titrate by mcg/min:: 1-2 mcg/min
Frequency of titrations (minutes):: 5
Maximum dose in ICU in mcg/min:: 30
Maximum dose in IMU in mcg/min:: 8
Maximum dose in IVU in mcg/min:: 4
Begin to taper infusion when:: Remained at goal for 4hrs
Taper by mcg/min:: 1-2 mcg/min
Frequency of taper (minutes) if patient maintains goal:: 30
Taper to off?: Yes
If infusion off & no longer maintaining goal:: Contact Provider
06/22/23 13:03
Hydrocortisone Sod Succinate [Solu-Cortef] 100 mg IV NOW STA
06/22/23 13:07
ABG [Arterial Blood Gas] Urgent
%Oxygen/Room Air: 90
Abnormal Lab Results
06/22/23 06/22/23 06/22/23
11:08 12:31 12:59
RBC 3.06 L 10^6/uL
(4.70-6.10)
Hgb 9.4 L g/dL
(13.0-18.0)
Hct 27.5 L %
(39.0-52.0)
RDW 18.2 H %
(11.5-14.5)
Absolute Neuts (auto) 8.1 H 10^3/uL
(1.4-6.5)
Absolute Lymphs (auto) 0.5 L 10^3/uL
(1.2-3.4)
Absolute Monos (auto) 0.7 H 10^3/uL
(0.1-0.6)
Neutrophils % 86.2 H %
(42.2-75.2)
Lymphocytes % 5.4 L %
(20.5-51.1)
pH
HCO3
ABG O2 Sat (Measured)
Sodium 130 L mmol/L
(135-145)
BUN 35 H mg/dl
(9-20)
Glucose 325 H mg/dl
(70-99)
Calcium 7.9 L mg/dl
(8.4-10.2)
Total Bilirubin 1.5 H mg/dl
(0.2-1.3)
Total Protein 5.9 L g/dl
(6.3-8.2)
Albumin 3.2 L g/dl
(3.5-5.0)
Urine Glucose 1+ A
(Negative)
POC Glucose 291 H mg/dl
(70-99)
06/22/23
13:07
RBC
Hgb
Hct
RDW
Absolute Neuts (auto)
Absolute Lymphs (auto)
Absolute Monos (auto)
Neutrophils %
Lymphocytes %
pH 7.30 L
(7.35-7.45)
HCO3 20.7 L mmol/L
(21-28)
ABG O2 Sat (Measured) 98.4 H %
(94-98)
Sodium
BUN
Glucose
Calcium
Total Bilirubin
Total Protein
Albumin
Urine Glucose
POC Glucose
06/22/23 11:08
06/22/23 11:08
Vital Signs
Initial and Last Documented VS:
Initial Vital Signs
Pulse Resp BP Pulse Ox
67 16 119/60 97
06/22/23 11:06 06/22/23 11:06 06/22/23 11:06 06/22/23 11:06
Last Documented Vital Signs
Temp Pulse Resp BP Pulse Ox
94.1 F L 76 17 149/53 87
06/22/23 14:00 06/22/23 14:15 06/22/23 14:15 06/22/23 14:15 06/22/23 14:15
<Jay Pierce Jr., PA-C - Last Filed: 06/22/23 14:31>
MDM/Problems Addressed
MDM/Problems Addressed:
78-year-old male presenting to the emergency department today with concerns of complaint of chest pain this morning upon awakening but describes as achy no radiation no associated symptoms according to EMS he send have some degree of slurring and
was off his baseline here phonation seem to be normal he claims that his phonation has been normal. Denies additional concerns but is hypothermic upon arrival otherwise vital signs are normal. Was started on fluids and put on a warmer. Culture
sent. Unclear source explored from head to toe no signs of infection chest x-ray without signs of pneumonia labs showing elevated glucose and BUN to creatinine ratio consistent with dehydration was given fluids for this. Concern for potential
sepsis considering hypothermia altered mental status low blood pressure was given 2 L of fluid but still have worsening pressure started on Levophed with quick improvement. Otherwise patient remained arousable throughout ER stay CT head was
obtained without acute abnormalities CT chest obtained did not show emergent findings either. Unclear specific source of infection.
<Jay Pierce Jr., PA-C - Last Filed: 06/22/23 14:31>
*Critical Care Note
Total Time (30-74mins, 75-104mins- exclusive of procedures): Not Applicable
ED Attending Note
<Jay Pierce Jr., PA-C - Last Filed: 06/22/23 14:31>
-
Portions of this chart may have been created with voice recognition software.� Occasional wrong word or��sound alike� substitutions may have occurred due to the inherent limitations of voice recognition software.
<Harjit Gipson MD - Last Filed: 06/22/23 14:18>
ED Attending Note
Patient seen and examined by attending physician: Yes
I performed the substantive portion of visit, reviewed & personally made and approve the management plan that is documented in note by myself or EMILIANO.: Yes
ED Attending Note:
1300... I have already had multiple rechecks on this patient that was quite lethargic on my initial evaluation. Complaining of some chest pain. Hypotensive. Bradycardic. Benign abdomen. Warm fluids warming. Second liter. Blood pressure
remains low. Levophed started. Patient is on chronic steroids. Hydrocortisone ordered. Antibiotics ordered. Trying to contact family to no avail to discuss CODE STATUS and aggressiveness of therapy
1415... Patient has been rechecked multiple times. Blood pressure significantly improved on low-dose Levophed. Heart rate improved. CT scans pending.
cc 45 min
Discharge Plan
Departure
Patient Disposition: Admit
Date of Disposition: 06/22/23
Time of Disposition: 14:25
Admit to: ICU
Admit to doctor: Violeta
Presentation/result/management discussed w/ accepting MD/DO: Hospitalist
Patient with high blood pressure during this ER visit?: No
Condition: Fair
Covid-19: Not Applicable
Discharge Problem:
Sepsis, Hypotension, Hypothermia
Prescriptions:
No Action
lansoprazole [Prevacid] 30 MG capsule,delayed release(DR/EC)
30 mg PO DAILY
isosorbide mononitrate 30 MG tablet extended release 24 hr
30 mg PO DAILY
alendronate 70 MG tablet
70 mg PO WE@0600
prednisone 5 MG tablet
5 mg PO DAILY
tamsulosin 0.4 MG capsule
0.4 mg PO QPM
furosemide 40 mg Tablet
40 mg PO DAILY
triamcinolone acetonide 0.5 % Cream
1 applic TOPICAL BIDPRN PRN (Reason: skin issuses)
fluorouracil 5 % Cream
1 applic TOPICAL BIDPRN PRN (Reason: actinic/solar keratoses)
finasteride 5 mg Tablet
5 mg PO DAILY
cholecalciferol (vitamin D3) [Vitamin D3] 25 mcg (1,000 unit) Tablet
25 mcg PO DAILY
metformin 500 mg Tablet
500 mg PO BID@0800,1700
albuterol sulfate 2.5 mg /3 mL (0.083 %) Solution For Nebulization
2.5 mg INHALATION Q4H PRN (Reason: cough/wheezing )
dextromethorphan-guaifenesin [Robitussin-DM] 10-100 mg/5 mL Syrup
5 ml PO Q6H PRN (Reason: cough )
aspirin 81 mg Tablet,Delayed Release (Dr/Ec)
81 mg PO BID
levothyroxine 100 mcg tablet
100 mcg PO DAILY@0700
ascorbic acid (vitamin C) [Vitamin C] 500 mg Tablet
500 mg PO DAILY@1200
guaifenesin [Mucinex] 600 mg Tablet Extended Release 12hr
600 mg PO BID PRN (Reason: cough/congestion )
ferrous sulfate [FeroSul] 325 mg (65 mg iron) tablet
325 mg PO NOON
atorvastatin 20 mg tablet
20 mg PO HS
calcium carbonate [Caltrate 600] 600 mg calcium (1,500 mg) Tablet
600 mg PO DAILY
acetaminophen [Tylenol Extra Strength] 500 MG tablet
1,000 mg PO TID MDD max 6 tablets/24 hrs PRN (Reason: pain )
Referrals:
UNKNOWN - PT DOES,NOT KNOW [Family Provider] -
Interventions
Interventions:
*Risk Screen - Suicide Last Done: 06/22/23 11:06
*General Assessment Last Done: 06/22/23 11:06
*Neglect/Abuse Screening Last Done: 06/22/23 11:06
ED- Cardiac Assessment Last Done: 06/22/23 12:06
[2023-06-22] MEDS: NSS 1000 IV (12:24)
[2023-06-22] MEDS: ASPIRIN 325 MG PO (12:25)
[2023-06-22 12:50] LABS: Urine Albumin Negative (Neg - Trace); Urine Bilirubin Negative (Negative); Urine Character Clear (Clear); Urine Color Yellow; Urine Glucose 1+ (Negative); Urine Ketone Negative (Negative); Urine Leukocyte Negative (Negative); Urine Nitrite Negative (Negative); Urine Occult Blood Negative (Negative); Urine Urobilinogen Negative (Neg - 1+)
[2023-06-22] MEDS: LEVOPHED 250 IV (12:59)
[2023-06-22 13:03] LABS: Glucose - Point of Care 291 mg/dl (70-99)
[2023-06-22 13:11] LABS: Free T4 1.95 ng/dl (0.78-2.19)
[2023-06-22] MEDS: ZOSYN 50 IV (13:12)
[2023-06-22] MEDS: SOLU-CORTEF 100 MG IV (13:12)
[2023-06-22 13:19] LABS: B.E. -5.3 mmol/L; HCO3 20.7 mmol/L (21-28); O2 Saturation % 98.4 % (94-98); PCO2 42 mmHg (35-48); PO2 99 mmHg (83-108)
[2023-06-22 13:25] LABS: TSH 2.29 uIU/ml (0.47-4.68)
--- NOTE | 2023-06-22 14:46 | HPS.HSE ---
Addendum entered and electronically signed by Kelechi Mcdaniel MD 06/23/23 10:35:
correction- 'On chronic prednisone will hold on Stress dose steroids as BP stable'
Should read as ' On chronic prednisone but now on Stress dose steroids as BP unstable'
Original Note:
Family Physician
<COSTA Romero - Last Filed: 06/22/23 15:28>
-
Family Physician: NOT KNOW UNKNOWN - PT DOES
Chief Complaint
<COSTA Romero - Last Filed: 06/22/23 15:28>
-
Chest pain with inspiration
History of Present Illness
78-year-old male from [place] who is complaining of chest pain to touch and with inspiration today. On arrival to the ER he was noted to be hypotensive 70 systolic and hypothermic 88 �F. He is awake and oriented to name, [place] and review
of systems. He denies fever, chills, headache, sore throat, cough, abdominal pain, nausea, vomiting, diarrhea, urinary symptoms. Had recent admission May 28 for hypothermia, hypotension and left thigh hematoma from fall he was transfused with
1 unit PRBCs on 05/28/2023 he also had abnormal ACTH stim test and low cortisol was placed on prednisone for concern of adrenal insufficiency. He also had his Synthroid increased from 88 to 100 mcg due to abnormal TSH was due for repeat in 4 to 6
weeks.
PMH sepsis with hypothermia/hypotension 2/2 right lower extremity cellulitis December 2022, chronic venous stasis dermatitis, DVT right peroneal vein on Eliquis, mild mental retardation, CAD, GERD, asthma, hypothyroidism, sinus bradycardia, BPH
Medical History
<COSTA Romero - Last Filed: 06/22/23 15:28>
Past Medical History
Past Medical History: Reports Other
Additional Past Medical History:
right lower extremity cellulitis with sepsis and hypothermia December 2022 that did require pressors and bear hugger, DVT right peroneal vein on Eliquis, mild mental retardation, CAD, mild MR, GERD, asthma, hypothyroidism, sinus bradycardia, BPH.
Past Surgical History: Reports None
Social History
Tobacco: Non-smoker
Alcohol: None
Drug: None
Personal: Single
Living: Other (Personal-long term)
Employment: Retired
Family History
Family History: Unable to Obtain
Allergies / Home Medications
Allergies reflects when Allergies were last updated in [facility].
Home Medications with original date entered in [facility]
Allergy/Medication List:
Allergies
Allergy/AdvReac Type Severity Reaction Status Date / Time
No Known Allergies Allergy Verified 05/25/23 10:51
Home Medications
lansoprazole 30 mg capsule,delayed release (Prevacid) 30 mg PO DAILY Gastrointestinal issue 05/25/08
isosorbide mononitrate 30 mg tablet,extended release 24 hr 30 mg PO DAILY Heart Disease/Condition 06/11/15
alendronate 70 mg tablet 70 mg PO WE@0600 osteoporosis 08/10/20
prednisone 5 mg tablet 5 mg PO DAILY asthma 08/10/20
tamsulosin 0.4 mg capsule 0.4 mg PO QPM Urinary issue 08/10/20
cholecalciferol (vitamin D3) 25 mcg (1,000 unit) tablet (Vitamin D3) 25 mcg PO DAILY Supplement 01/21/23
finasteride 5 mg tablet 5 mg PO DAILY Urinary Issue 01/21/23
fluorouracil 5 % topical cream 1 applic topical BIDPRN PRN actinic/solar keratoses 01/21/23
furosemide 40 mg tablet 40 mg PO DAILY Fluid Retention/Swelling 01/21/23
triamcinolone acetonide 0.5 % topical cream 1 applic topical BIDPRN PRN skin issuses 01/21/23
metformin 500 mg tablet 500 mg PO BID@0800,1700 Diabetes 05/25/23
acetaminophen 500 mg tablet (Tylenol Extra Strength) 1,000 mg PO TID PRN pain 06/22/23
albuterol sulfate 2.5 mg/3 mL (0.083 %) solution for nebulization 2.5 mg inhalation Q4H PRN cough/wheezing 06/22/23
ascorbic acid (vitamin C) 500 mg tablet (Vitamin C) 500 mg PO DAILY@1200 06/22/23
aspirin 81 mg tablet,delayed release 81 mg PO BID Blood Clot Prevention/Tx 06/22/23
atorvastatin 20 mg tablet 20 mg PO HS High Cholesterol 06/22/23
calcium carbonate 600 mg calcium (1,500 mg) tablet 600 mg PO DAILY Supplement 06/22/23
dextromethorphan-guaifenesin 10 mg-100 mg/5 mL oral syrup 5 ml PO Q6H PRN cough 06/22/23
ferrous sulfate 325 mg (65 mg iron) tablet (FeroSul) 325 mg PO NOON Supplement 06/22/23
guaifenesin 600 mg tablet, extended release 12 hr (Mucinex) 600 mg PO BID PRN cough/congestion 06/22/23
levothyroxine 100 mcg tablet 100 mcg PO DAILY@0700 hypothyroidism 06/22/23
Review of Systems
<COSTA Romero - Last Filed: 06/22/23 15:28>
-
History Source: Patient
A 12 point ROS was completed and negative except as noted: Yes
Constitutional: Reports Fever (Hypothermic at 88 F rectal); Denies Fatigue or Chills
Respiratory: Denies Cough or Trouble Breathing
Cardiac: Reports Chest Pain (With inspiration and to touch midsternal); Denies Diaphoresis, Palpitations or Syncope
Abdomen/GI: Denies Abdominal Pain, Nausea, Vomiting, Diarrhea, Constipated, Bloody Stools or Black Stools
: Denies Dysuria, Frequency, Flank Pain, Incontinence or Difficulty Voiding
Musculoskeletal: Reports Edema (Chronic +1 with venous stasis dermatitis chronic); Denies Joint Pain or Joint Swelling
Skin: Denies Itching or Rash
Neurological: Reports Weakness; Denies Dizzy or Headache
Endocrine: Reports No Symptoms
Hematologic/Lymphatic: Reports No Symptoms
Psych: Reports Calm
Physical Exam
<COSTA Romero - Last Filed: 06/22/23 15:28>
Vital Signs
Vital Signs
Temp Pulse Resp BP Pulse Ox
94.1 F L 76 17 149/53 87
06/22/23 14:00 06/22/23 14:15 06/22/23 14:15 06/22/23 14:15 06/22/23 14:15
Physical Exam
General: Comfortable, Conversant, Fever (Hypothermic) and Other (Tired but oriented x 3); No Chills
HEENT: NormoCephalic, Anicteric, Moist mucous membranes, PERRLA and No Ptosis
Respiratory: Clear; No Wheezes, Rales or Rhonchi
Cardiac: S1/S2, Regular Rhythm and Peripheral Edema (Chronic +1 with chronic venous stasis dermatitis no obvious signs of cellulitis to lower extremities); No Murmur, Rub or Gallop
Breast: Deferred by me
GI: Soft, Non Tender, Non Distended, Normal Bowel Sounds and No Hepatosplenomegaly
Rectal: Deferred by Provider
Genito-urinary: Deferred by me
Musculoskeletal: No Clubbing, No Cyanosis and Other (Chronic +1 with chronic venous stasis dermatitis no obvious signs of cellulitis to lower extremities); No Edema, Left Upper Extremity or Edema, Right Upper Extremity
Skin: Warm and Dry; No Rash or Jaundice
Neuro: AO x 3, No Motor Deficits, Nonfocal/grossly intact and No Sensory Deficits; No Slurred Speech, Facial Droop, Tremors or Sedated
Psych: Calm
Laboratory Results
<COSTA Romero - Last Filed: 06/22/23 15:28>
-
06/22/23 11:08
06/22/23 11:08
Laboratory Results
pH 7.30 (7.35-7.45) L 06/22/23 13:07
pCO2 42 mmHg (35-48) 06/22/23 13:07
pO2 99 mmHg (83-108) 06/22/23 13:07
HCO3 20.7 mmol/L (21-28) L 06/22/23 13:07
Lactic Acid 2.0 mmol/L (0.7-2.0) 06/22/23 11:33
Total Bilirubin 1.5 mg/dl (0.2-1.3) H 06/22/23 11:08
AST 35 U/L (17-59) 06/22/23 11:08
ALT 34 U/L (0-50) 06/22/23 11:08
Alkaline Phosphatase 87 U/L (38-126) 06/22/23 11:08
Troponin I 0.033 ng/ml 06/22/23 11:08
Data Reviewed
<COSTA Romero - Last Filed: 06/22/23 15:28>
-
Diagnostic Radiology: Report Reviewed by me
CT Scan: Report Reviewed by me
Lab Data: Labs Reviewed by me
Impression/Plan
<COSTA Romero - Last Filed: 06/22/23 15:28>
-
Impression/plan:
Admit to IMU
#Acute hypothermia/Hypotension concern for sepsis versus Acute on Chronic ADRENAL insufficiency
MAY 2023: Patient had low cortisol and abnormal ACTH stim test of 13,Prednisone was increased to 20 mg then back to 5 mg on discharge
88.6> 94.1F with current Abbie hugger will continue to normothermia
-UA negative, CXR no acute cardiopulmonary disease
-Lactic acid 2 will trend
-Blood cultures x 2 pending
-Patient given 1 dose of IV Zosyn in ER we will hold further doses pending blood cultures
-Will check add on random cortisol to prior labs
-Hydrocortisone 100 mg given in ER continue 50 mg every 8 hours(prior prednisone 5 mg daily)
-Aspirin 324 mg given in ER
CT head no acute intracranial abnormality
#Acute hypotension likely secondary to adrenal insufficiency
72/41 > 149/53 status post 2 L NSS and Levophed gtt.
-Continue Levophed drip adjust to BP
-Hold finasteride, Flomax
-Hold Imdur 30 mg daily
-Hold Lasix
#Hyponatremia
NA 130
TSH/T4 normal
- urine NA, urine sodium, serum Osmo
# HX Fall with Right THIGH HEMTOMA/Right KNEE� EFFUSION� on Eliquis-RESOLVED
#Hx frequent falls/chronic ambulatory dysfunction(uses cane/walker at baseline)
-Received 1 unit PRBCs on 05/28/23 secondary to thigh hematoma from fall
#Chronic anemia-iron deficiency
-Hgb 9.4 appears near baseline since last admission
#Hx DVT right peroneal vein
Dopplers were negative on 05/30/23
-Eliquis was DC'd due to fall risk
#Mild mental retardation-chronic
Patient oriented x3 is able to give history
#CAD
-Follows with Dr. Reardon as outpatient
-HOLD Imdur 30 mg with hold parameters � �
�� � � � � � � � � � � � � � � � � � � � � � � � � � � � � � � � � �
#Mitral regurgitation
#GERD
-Continue Prevacid or equivalent
#Asthma chronic�no acute exacerbation
-On chronic prednisone will hold on Stress dose steroids as BP stable
#Hypothyroidism
-Recent TSH 6.03 his Synthroid was increased from 88 mcg to 100 mcg
-TSH 2.25 with free T4 1.95 (IMPROVED)
-Continue Synthroid 100 mcg daily
#Hx sinus bradycardia
#BPH
-HOLD finasteride with hold parameters
#Hx RLE cellulitis with sepsis December 2022
-Patient did require IV pressors, hypothermia protocol for this admission
DVT prophylaxis
Subcu Lovenox
Patient requesting full code
<Kelechi Mcdaniel MD - Last Filed: 06/22/23 17:18>
-
I saw and examined the patient.
The ASP NET DEVELOPER or PA's note was reviewed and I agree with the note.
Comment:
CVS: S1-S2 normal, sm at apex
Chest: CTA B/L
Abdomen: Soft, NT / Bowel sounds present
Extremities: No edema, normal pulses
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
Says yes or no answers
#Acute hypothermia/hypotension-likely secondary to adrenal insufficiency
Continue Abbie hugger
Hydrocortisone stress dose given in the ER continue 50 every 8 for now
Blood cultures drawn
Mild redness RLE- Ancef for mild cellulitis
Abdomen soft and nontender
wean Levophed
Hold Imdur, Lasix
#Hyponatremia likely secondary to adrenal insufficiency
Thyroid function test normal
#Frequent history of falls with right thigh hematoma and right knee effusion on Eliquis-resolved
#History of frequent falls with chronic ambulatory dysfunction uses a cane/walker at baseline
Received 1 unit of packed red blood cells May 28, 2023
#Chronic anemia-hemoglobin 9.4 near baseline
#Hx DVT right peroneal vein
Dopplers were negative on 05/30/23
Eliquis was DC'd due to fall risk
#Mild mental retardation-chronic
#CAD
-Follows with Dr. Reardon as outpatient
-HOLD Imdur 30 mg with hold parameters � �
�� � � � � � � � � � � � � � � � � � � � � � � � � � � � � � � � � �
#Mitral regurgitation
#GERD
-Continue Prevacid or equivalent
#Asthma chronic�no acute exacerbation
-On chronic prednisone will hold on Stress dose steroids as BP stable
#Hypothyroidism
-Recent TSH 6.03 his Synthroid was increased from 88 mcg to 100 mcg
-TSH 2.25 with free T4 1.95 (IMPROVED)
-Continue Synthroid 100 mcg daily
#Hx sinus bradycardia
#BPH
- finasteride
#Hx RLE cellulitis with sepsis December 2022
-Patient did require IV pressors, hypothermia protocol for this admission
#History of peptic ulcer disease-continue PPI
#DVT prophylaxis
Subcutaneous Lovenox
Called [facility]. Wrong number
Impression/plan:
Admit to IMU
#Acute hypothermia/Hypotension concern for sepsis versus Acute on Chronic ADRENAL insufficiency
MAY 2023: Patient had low cortisol and abnormal ACTH stim test of 13,Prednisone was increased to 20 mg then back to 5 mg on discharge
88.6> 94.1F with current Abbie hugger will continue to normothermia
-UA negative, CXR no acute cardiopulmonary disease
-Lactic acid 2 will trend
-Blood cultures x 2 pending
-Patient given 1 dose of IV Zosyn in ER we will hold further doses pending blood cultures
-Will check add on random cortisol to prior labs
-Hydrocortisone 100 mg given in ER continue 50 mg every 8 hours(prior prednisone 5 mg daily)
-Aspirin 324 mg given in ER
CT head no acute intracranial abnormality
#Acute hypotension likely secondary to adrenal insufficiency
72/41 > 149/53 status post 2 L NSS and Levophed gtt.
-Continue Levophed drip adjust to BP
-Hold finasteride, Flomax
-Hold Imdur 30 mg daily
-Hold Lasix
#Hyponatremia
NA 130
TSH/T4 normal
- urine NA, urine sodium, serum Osmo
# HX Fall with Right THIGH HEMTOMA/Right KNEE� EFFUSION� on Eliquis-RESOLVED
#Hx frequent falls/chronic ambulatory dysfunction(uses cane/walker at baseline)
-Received 1 unit PRBCs on 05/28/23 secondary to thigh hematoma from fall
#Chronic anemia-iron deficiency
-Hgb 9.4 appears near baseline since last admission
#Hx DVT right peroneal vein
Dopplers were negative on 05/30/23
-Eliquis was DC'd due to fall risk
#Mild mental retardation-chronic
Patient oriented x3 is able to give history
#CAD
-Follows with Dr. Reardon as outpatient
-HOLD Imdur 30 mg with hold parameters � �
�� � � � � � � � � � � � � � � � � � � � � � � � � � � � � � � � � �
#Mitral regurgitation
#GERD
-Continue Prevacid or equivalent
#Asthma chronic�no acute exacerbation
-On chronic prednisone will hold on Stress dose steroids as BP stable
#Hypothyroidism
-Recent TSH 6.03 his Synthroid was increased from 88 mcg to 100 mcg
-TSH 2.25 with free T4 1.95 (IMPROVED)
-Continue Synthroid 100 mcg daily
#Hx sinus bradycardia
#BPH
-HOLD finasteride with hold parameters
#Hx RLE cellulitis with sepsis December 2022
-Patient did require IV pressors, hypothermia protocol for this admission
DVT prophylaxis
Subcu Lovenox
Patient requesting full code
[2023-06-22 19:11] LABS: Cortisol, Random 7.4 ug/dl
[2023-06-22 21:26] LABS: Glucose - Point of Care 164 mg/dl (70-99)
[2023-06-22] MEDS: LIPITOR 20 MG PO (21:35)
[2023-06-22] MEDS: LOVENOX 40 MG SC (21:35)
[2023-06-22] MEDS: GLUCOPHAGE 500 MG PO (21:35)
[2023-06-22] MEDS: FLOMAX 0.400000000000000022 MG PO (21:35)
[2023-06-22] MEDS: SOLU-CORTEF 50 MG IV (21:35)
[2023-06-22] MEDS: ASPIR LOW (ENTERIC COATED) 81 MG PO (21:35)
[2023-06-22] MEDS: ANCEF 5 IV (21:35)
[2023-06-23] VITALS (30 sets, daily range): BP systolic 90–139; BP diastolic 46–75; PULSE 70–73; O2SAT 97–98; BMI 26.4
--- NOTE | 2023-06-23 02:40 | PTCARENOTE ---
pt admitted from ED- pt is AAOx3- lethargic and drowsy but wakes up to verbal stimuli. able to take pills whole with water. levo gtt running at 2mcg/min for MAP >65. infusion currently off per protocol. CC #21 intact- draining clear yellow urine. pt
oriented to new room, call pena within reach, care ongoing.
[2023-06-23 04:28] LABS: % Immature Granulocytes 0.4 % (0-0.5); % Lymphocytes 4.9 % (20.5-51.1); % Neutrophils 92.7 % (42.2-75.2); Absolute Lymphocytes 0.3 10^3/uL (1.2-3.4); Absolute Monocytes 0.1 10^3/uL (0.1-0.6); Absolute Neutrophils 5.1 10^3/uL (1.4-6.5); Hematocrit 24.3 % (39.0-52.0); Hemoglobin 8.4 g/dL (13.0-18.0); Mean Corp Hgb Conc. 34.6 g/dL (33.0-37.0); Mean Corpuscular Hgb 31.3 pg (27.0-31.0); Mean Corpuscular Volume 90.7 fL (80.0-94.0); Nucleated Red Blood Cells % 0 % (-); Platelet Count 145 10^3/uL (130-400); Red Blood Cell Count 2.68 10^6/uL (4.70-6.10); White Blood Cell Count 5.5 10^3/uL (4.8-10.8)
[2023-06-23 05:10] LABS: ALT (SGPT) 26 U/L (0-50); AST (SGOT) 27 U/L (17-59); Albumin 2.7 g/dl (3.5-5.0); Alkaline Phosphatase 77 U/L (38-126); Blood Urea Nitrogen 33 mg/dl (9-20); Calcium 7.6 mg/dl (8.4-10.2); Carbon Dioxide 23 mmol/L (22-30); Chloride 107 mmol/L (98-107); Estimated Creatinine Clearance 51 ml/min; Glucose 126 mg/dl (70-99); Potassium 5.2 mmol/L (3.5-5.1); Sodium 137 mmol/L (135-145); Total Bilirubin 1.2 mg/dl (0.2-1.3); Total Protein 5.4 g/dl (6.3-8.2); eGFR > 60.00
[2023-06-23] MEDS: SOLU-CORTEF 50 MG IV (05:43)
[2023-06-23] MEDS: ANCEF 5 IV ×3 (05:43→22:17)
[2023-06-23] MEDS: SYNTHROID 100 MCG PO (05:48)
[2023-06-23 07:58] LABS: Glucose - Point of Care 127 mg/dl (70-99)
[2023-06-23] MEDS: PROTONIX 40 MG PO (08:14)
[2023-06-23] MEDS: GLUCOPHAGE 500 MG PO ×2 (08:15→17:36)
[2023-06-23] MEDS: VITAMIN D3 (cholecalciferol) 25 MCG PO (08:15)
[2023-06-23] MEDS: ASPIR LOW (ENTERIC COATED) 81 MG PO ×2 (08:15→19:53)
[2023-06-23] MEDS: OSCAL CAL 500 500 MG PO (08:15)
[2023-06-23] MEDS: PROSCAR 5 MG PO (08:15)
--- NOTE | 2023-06-23 10:10 | W.PN.HOSP.TC ---
Today's Communication/Plan
-
pt
ot
cards eval
echo
Assessment / Plan
Assessment / Plan
78-year-old male who was drowsy and lethargic in the ER yesterday is awake and alert and able to give me more history. Patient states that he came in to the ER yesterday because of chest pain. He states that he does not have any pain now. It went
away. He is not a great historian could not elaborate more than that.
CVS: S1-S2 normal, sm at apex
Chest: CTA B/L
Abdomen: Soft, NT / Bowel sounds present
Extremities: No edema, normal pulses
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
#Chest pain on admission
H/O CAD
Follows with Dr. Reardon as outpatient
EKG does not look normal however troponin first set was negative. Check 1 more set this morning
Cardiology evaluation
CT PE study -negative on 06/22/2023
DVT anticoagulation was stopped secondary to thigh hematoma and since ultrasound was negative on 05/30/2023.
HOLD� Imdur 30 mg � �
�� � � � � � � � � � � � � � � � � � �
#Acute hypothermia/hypotension-likely secondary to adrenal insufficiency
Temp better and off Bear hugger
Hydrocortisone stress dose given in the ER and on 50 every 8h now
Blood cultures drawn
Mild redness RLE- Ancef for mild cellulitis
Abdomen soft and nontender
Off Levophed
Hold Imdur, Lasix
#Hyponatremia likely secondary to adrenal insufficiency
Normalised.
Thyroid function test normal
#Frequent history of falls with right thigh hematoma and right knee effusion on Eliquis-resolved
#History of frequent falls with chronic ambulatory dysfunction uses a cane/walker at baseline
Received 1 unit of packed red blood cells May 28, 2023
#Chronic anemia-hemoglobin near baseline
#Hx DVT right peroneal vein
Doppler were negative on 05/30/23
Eliquis was DC'd due to fall risk
#Mild mental retardation
#Mitral regurgitation
#GERD
-Continue Prevacid or equivalent
#Asthma chronic�no acute exacerbation
-On chronic prednisone
#Hypothyroidism
-Recent TSH 6.03 his Synthroid was increased from 88 mcg to 100 mcg
-TSH 2.25 with free T4 1.95 (IMPROVED)
-Continue Synthroid 100 mcg daily
#Hx sinus bradycardia
#BPH
- Finasteride
#Hx RLE cellulitis with sepsis December 2022
-Patient did require IV pressors, hypothermia protocol for this admission
#History of peptic ulcer disease-continue PPI
#DVT prophylaxis
Subcutaneous Lovenox
D/W RN
I tried to contact patient's family. One of the number listed is in [place]. The other one for [facility] does not go through.
Anticipated Discharge: 24 - 48 hours
Subjective/Interval History
-
Date of Service: June 23, 2023
Objective Data
-
Labs:
Laboratory Results
06/23/23
04:01
WBC 5.5
Hgb 8.4 L
Hct 24.3 L
Plt Count 145
Sodium 137
Potassium 5.2 H
Chloride 107
Carbon Dioxide 23
BUN 33 H
Creatinine 1.0
Glucose 126 H
Calcium 7.6 L
Total Bilirubin 1.2
AST 27
ALT 26
Alkaline Phosphatase 77
Vital Signs:
Vital Signs
Temp Pulse Resp BP Pulse Ox
97.5 F 70 14 109/47 97
06/23/23 07:15 06/23/23 06:00 06/23/23 06:00 06/23/23 06:00 06/23/23 06:00
I&O
06/22/23 06/23/23 06/24/23
06:59 06:59 06:59
Output Total 1000 / 1000
Balance -1000 / -1000
--- NOTE | 2023-06-23 11:33 | CM ---
Addendum entered by Delfina Arteaga RN 06/23/23 11:44:
José Miguel states patient has not had any recent falls.
Original Note:
Patient from [facility] with Hx including cognitive impairment with Dx chest pain, hypothermia/hypotension, Hyponatremia. O2 2L Receiving IV cefazolin, IV Solucortef, Levophed gtt. PT & OT Evals pending.
Spoke with José Miguel Flores, In [employer] Refueling [employer] [facility] (ph [phone]);
the patient resides in their 1 story facility with 3 LISET or ramp access, and has a shared bedroom.
He has been assisted with ADLs such as showering, and ambulates with his SPC.
The patient has poor mobility at baseline and a RW or w/c is used for long distances.
He is able to feed himself.
DME - SPC, glucometer, w/c
VN - current with [facility] for [facility]PT[facility]OT
SNF - none
PCP - Marissa Whaley NP
Pharmacy - [facility] [place] , [place]
The patient will need transport arranged and José Miguel will provide CC for w/c van transport.
The patient's brother Abdirashid Alcaraz is his POA and he resides in [place] - ph [phone]. José Miguel says his brother has contact and gets updates on the patient from [facility].
Referral placed for [facility].
Plan follow up after PT/OT Evals.
Plan home to [facility] with [facility], with transport arranged.
--- NOTE | 2023-06-23 12:32 | W.PN.UPDATE ---
Update Note
Progress Note Update
Discussed with endocrinology. Patient can be switched to prednisone 5 mg. If the patient gets sick he needs to be on 15 mg as outpatient-half-way made aware.
Called half-way [phone]
Spoke Delfina Norman.
States that patient was fine the day before yesterday. Yesterday morning he is woke up and had difficulty with his balance when he was walking and he was feeling dizzy. He was also complaining of chest pain. Vitals as below
108/64 mm hg.temp 96.6, hr-60, spo2 96 %
BS 106- then 322
She states that his speech has been slower rate. Will get Neurochecks. Also MRI of the brain
[2023-06-23 12:49] LABS: Troponin I 0.016 ng/ml
--- NOTE | 2023-06-23 13:29 | CON.CAR ---
Addendum entered and electronically signed by Domingo Frazier MD 06/23/23 15:38:
I saw and examined the patient.
The CAR COOPER's note was reviewed and I agree with the note.
78-year-old male patient of Dr. Reardon with cognitive/developmental disability, multivessel coronary disease as demonstrated on prior cath 2003, bifascicular block and chronic lower extremity edema who was reported to have chest discomfort prior to
presentation but is now chest pain-free. Patient provides limited information by history ECG shows sinus rhythm with bifascicular block and is stable from prior ECGs. Peak troponin only 0.03 echocardiogram with fair image quality but overall
normal left ventricular function. Plan intent past has been for continued medical therapy for coronary artery disease. Considering the above presentation and the fact that the patient remains pain-free without a more significant rise in troponin I
would recommend we continue with medical therapy for coronary artery disease.
-Continue with medical therapy for coronary artery disease
-Resume previously prescribed isosorbide
Note that part of his medical therapy for coronary artery disease would include appropriate treatment of anemia-. Patient's hemoglobin is down to 8.4 when it had been greater than 10 back in the fall 2022. Additional management as directed by
primary team
Original Note:
Consultation
Consultation Request
Date/Time Consultation Requested: 06/23/22 13:20
Date/Time Consultation Performed: 06/23/22 13:30
Requesting Provider: Dr. Mcdaniel
Performing Provider: COSTA Valdez for Dr. Frazier
Reason for Consultation: Chest pain
Medical History
-
Chief Complaint: Chest pain, lethargy
History of Present Illness:
Rik Alcaraz is a 78 year old male (known to Dr. Reardon, his primary ambulance paramedic), with right bundle branch block, LAFB, mild to moderate triple-vessel coronary disease that has been treated medically, chronic lower extremity edema requiring
diuretic, and mild valvular heart disease who presented to the ER with a chief complaint of chest pain. He will have a few moments of chest heaviness. It is midsternal and anterior. It does not radiate. No associated symptoms of dizziness or
shortness of breath. He was found to be hypothermic, hypotensive, and lethargic. Cardiology was consulted for chest pain.
Past Medical History
Past Medical History: CAD
Social History
Tobacco: Non-Smoker
Alcohol: None
Drug: None
Personal: Single
Living: Other (Custodial)
Employment: Disabled
Family History
Family History: Unable to Obtain
Allergies / Home Medications
Allergy/AdvReac Type Severity Reaction Status Date / Time
No Known Allergies Allergy Verified 05/25/23 10:51
Medication Instructions Recorded Confirmed Type
lansoprazole 30 mg capsule,delayed 30 mg PO DAILY Gastrointestinal 05/25/08 06/22/23 History
release (Prevacid) issue
isosorbide mononitrate 30 mg 30 mg PO DAILY Heart 06/11/15 06/22/23 History
tablet,extended release 24 hr Disease/Condition
alendronate 70 mg tablet 70 mg PO WE@0600 osteoporosis 08/10/20 06/22/23 History
prednisone 5 mg tablet 5 mg PO DAILY asthma 08/10/20 06/22/23 History
tamsulosin 0.4 mg capsule 0.4 mg PO QPM Urinary issue 08/10/20 06/22/23 History
cholecalciferol (vitamin D3) 25 25 mcg PO DAILY Supplement 01/21/23 06/22/23 History
mcg (1,000 unit) tablet (Vitamin
D3)
finasteride 5 mg tablet 5 mg PO DAILY Urinary Issue 01/21/23 06/22/23 History
fluorouracil 5 % topical cream 1 applic topical BIDPRN PRN 01/21/23 06/22/23 History
actinic/solar keratoses
furosemide 40 mg tablet 40 mg PO DAILY Fluid 01/21/23 06/22/23 History
Retention/Swelling
triamcinolone acetonide 0.5 % 1 applic topical BIDPRN PRN skin 01/21/23 06/22/23 History
topical cream issuses
metformin 500 mg tablet 500 mg PO BID@0800,1700 Diabetes 05/25/23 06/22/23 History
acetaminophen 500 mg tablet 1,000 mg PO TID PRN pain 06/22/23 06/22/23 History
(Tylenol Extra Strength)
albuterol sulfate 2.5 mg/3 mL 2.5 mg inhalation Q4H PRN 06/22/23 06/22/23 History
(0.083 %) solution for nebulization cough/wheezing
ascorbic acid (vitamin C) 500 mg 500 mg PO DAILY@1200 06/22/23 06/22/23 History
tablet (Vitamin C)
aspirin 81 mg tablet,delayed 81 mg PO BID Blood Clot 06/22/23 06/22/23 History
release Prevention/Tx
atorvastatin 20 mg tablet 20 mg PO HS High Cholesterol 06/22/23 06/22/23 History
calcium carbonate 600 mg calcium 600 mg PO DAILY Supplement 06/22/23 06/22/23 History
(1,500 mg) tablet
dextromethorphan-guaifenesin 10 5 ml PO Q6H PRN cough 06/22/23 06/22/23 History
mg-100 mg/5 mL oral syrup
ferrous sulfate 325 mg (65 mg 325 mg PO NOON Supplement 06/22/23 06/22/23 History
iron) tablet (FeroSul)
guaifenesin 600 mg tablet, 600 mg PO BID PRN cough/congestion 06/22/23 06/22/23 History
extended release 12 hr (Mucinex)
levothyroxine 100 mcg tablet 100 mcg PO DAILY@0700 06/22/23 06/22/23 History
hypothyroidism
Review of Systems
-
History Source: Patient
All other systems: Negative unless noted
Constitutional: Fatigue
Respiratory: No Symptoms
Cardiac: Chest Pain
Abdomen/GI: No Symptoms
: No Symptoms
Physical Exam
Vital Signs
Temp Pulse Resp BP Pulse Ox
98.0 F 71 13 128/54 94
06/23/23 11:07 06/23/23 11:00 06/23/23 11:00 06/23/23 11:00 06/23/23 11:05
Lab Results
06/23/23 04:01
06/23/23 04:01
Troponin I 0.016 ng/ml 06/23/23 12:07
Nom-V-Ipnkxssbsln Pept 186 pg/ml 06/22/23 11:08
Physical Exam
General: Well Developed, Well Nourished, No Apparent Distress and Comfortable
HEENT: Normocephalic, Anicteric and Moist Mucous Membranes
Respiratory: Clear and Non Labored Respirations
Cardiac: S1/S2, Regular Rhythm and Murmur (II/)
Breast: Deferred by me
GI: Soft, Non Tender, Non Distended and Normal Bowel Sounds
Rectal: Deferred by Provider
Genito-urinary: No Costovertebral Tender
Musculoskeletal: No Clubbing and No Cyanosis
Skin: Warm and Dry
Neuro: AO x 3
Hematologic/Lymphatic: No Lymphadenopathy
Psych: Calm
Impression / Plan
-
Chest pain
-Intermittent heaviness, lasting 'very short' with exertion or rest, free of discomfort now
-Worse with deep breath and palpation
-Trend troponin, EKG
-Update TTE
Bifascicular block, chronic
CAD
-He is no longer requiring BP support, resume medical therapy for CAD
-Cath 11/14/2003: LVEF 60%; 90% D1, 60% mOM3, 65% mRCA, mild to moderate diffuse mid and distal LAD disease.
Hypotension & hypothermia with underlying adrenal insufficiency
-Abnormal outpatient ACTH stim test & started on prednisone
-Stress dose steroids given in ER
-No longer requiring vasopressor
-Resume Imdur
-Furosemide on hold
Anemia, per primary
Hypothyroidism, on levothyroxine
Mild to moderate mitral regurgitation
Prior peroneal DVT, apixaban stopped due to fall risk
Developmental disability, resides in a [facility]
Data Reviewed
-
EKG: Report Reviewed by me (Sinus bradycardia, Bifascicular block, rate 54)
Medical Tests (Nuc Med, Echo etc): Report Reviewed by me (Echo as above)
Labs: Labs Reviewed by me
Old Records: Reviewed
--- NOTE | 2023-06-23 13:30 | PTOTSP ---
Dysphagia Evaluation
Patient presents with signs concerning for possible pharyngoesophageal dysphagia with delayed non-productive coughing x1 after all PO trials were completed. Patient has a history of GERD which may be contributing - though cannot definitively rule
out delayed sensory response to top down aspiration at the bedside.
Recommend:
1. Regular, Thin Liquids
2. Medications as best tolerated
3. Remain upright for at least 30 degrees after PO intake as a reflux precaution
4. Consider GI consult
5. Consider video swallow study if concerned for top down aspiration.
Per chart review, neurology consult and MRI of Brain ordered to rule out acute neurological event as patient had an acute onset of dizziness, loss of balance, and 'slower' speech per [facility] staff member. Patient with mild speech differences
(i.e., rapid rate, mild imprecision, transpositioned sounds from 2 words x1 which was self-corrected). Will assess speech-language further pending results of MRI of Brain.
[2023-06-23] MEDS: FEOSOL 325 MG PO (13:39)
[2023-06-23] MEDS: VITAMIN C 500 MG PO (13:39)
[2023-06-23] MEDS: LOVENOX 40 MG SC (17:36)
[2023-06-23] MEDS: FLOMAX 0.400000000000000022 MG PO (17:36)
[2023-06-23 19:13] LABS: Troponin I 0.018 ng/ml
[2023-06-23 20:14] LABS: Vitamin B12 666 pg/ml (239-931)
--- NOTE | 2023-06-23 20:50 | PTCARENOTE ---
Pt AAOx3, slurred speech present, unchanged from previous shift per previous RN. SR with SB on court monitor. Pt independently voiding in urinal I&I as documented. PCT reported difficulty obtaining a temperature within desired limits. This RN
obtained rectal temperature of 94.6. COSTA Da Silva contacted, orders obtained and carried out to initiate gian jules. Call pena placed within reach. Safe environment maintained.
[2023-06-23] MEDS: LIPITOR 20 MG PO (22:18)
[2023-06-24] VITALS (17 sets, daily range): BP systolic 112–148; BP diastolic 49–67; BMI 26.2
--- NOTE | 2023-06-24 01:31 | PTCARENOTE ---
Pt reached goal temp. Abbie jules blanket removed.
[2023-06-24 05:13] LABS: % Basophils 0.5 % (0-2); % Eosinophils 0.6 % (0-6); % Immature Granulocytes 0.3 % (0-0.5); % Lymphocytes 10.1 % (20.5-51.1); % Monocytes 11.5 % (1.7-9.3); Absolute Lymphocytes 0.7 10^3/uL (1.2-3.4); Absolute Monocytes 0.7 10^3/uL (0.1-0.6); Hematocrit 23.9 % (39.0-52.0); Hemoglobin 8.2 g/dL (13.0-18.0); Mean Corp Hgb Conc. 34.3 g/dL (33.0-37.0); Mean Corpuscular Hgb 30.7 pg (27.0-31.0); Mean Corpuscular Volume 89.5 fL (80.0-94.0); Mean Platelet Volume 9.8 fL (7.4-10.4); Nucleated Red Blood Cells % 0.3 % (-); Platelet Count 149 10^3/uL (130-400); Red Blood Cell Count 2.67 10^6/uL (4.70-6.10); Red Cell Dist. Width 17.8 % (11.5-14.5); White Blood Cell Count 6.4 10^3/uL (4.8-10.8)
[2023-06-24 05:25] LABS: ALT (SGPT) 23 U/L (0-50); AST (SGOT) 29 U/L (17-59); Albumin 2.8 g/dl (3.5-5.0); Alkaline Phosphatase 73 U/L (38-126); Blood Urea Nitrogen 35 mg/dl (9-20); Calcium 7.5 mg/dl (8.4-10.2); Carbon Dioxide 25 mmol/L (22-30); Chloride 112 mmol/L (98-107); Estimated Creatinine Clearance 51 ml/min; Glucose 79 mg/dl (70-99); Potassium 4.5 mmol/L (3.5-5.1); Sodium 137 mmol/L (135-145); Total Bilirubin 1.1 mg/dl (0.2-1.3); Total Protein 5.4 g/dl (6.3-8.2); eGFR > 60.00
[2023-06-24] MEDS: ANCEF 5 IV (05:26)
[2023-06-24 05:36] LABS: Troponin I 0.019 ng/ml
[2023-06-24] MEDS: SYNTHROID 100 MCG PO (06:44)
--- NOTE | 2023-06-24 09:02 | W.PN.HOSP.TC ---
Today's Communication/Plan
-
Restart Lasix
Transfer to telemetry
MRI of the cervical spine
Speech reevaluation for recommendations
Outpatient GI evaluation for endoscopy
Continue PPI
Discharge planning for tomorrow.
Assessment / Plan
Assessment / Plan
78-year-old male who was drowsy and lethargic in the ER yesterday is awake and alert and able to give me more history. Patient states that he came in to the ER yesterday because of chest pain. He states that he does not have any pain now. It went
away. He is not a great historian could not elaborate more than that.
CVS: S1-S2 normal, sm at apex
Chest: CTA B/L
Abdomen: Soft, NT / Bowel sounds present
Extremities: No edema, normal pulses
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
Unclear patient's baseline speech
#Chest pain on admission
H/O CAD
Follows with Dr. Reardon as outpatient
Troponin negative
Cardiology evaluation
CT PE study -negative on 06/22/2023
DVT anticoagulation was stopped secondary to thigh hematoma and since ultrasound was negative on 05/30/2023.
Imdur restarted
# [facility] had concerns about patient's gait as well as speech therefore MRI of the brain was obtained-does not show any acute changes.
Requested [place] [facility] to come and evaluate the patient and see if his speech is back to baseline. Patient is not a great historian.
MRI of the cervical spine to rule out cervical radiculopathy
�� � � � � � � � � � � � � � � � � � �
#Acute hypothermia/hypotension-likely secondary to relative adrenal insufficiency and cellulitis
Patient has been on chronic steroids mostly for his asthma-his cosyntropin test was borderline
Discussed with Dr. Malik recommended, switch to prednisone. Outpatient follow-up with endocrine recommended-[place] [facility] aware
Temp better and off Bear hugger
Hydrocortisone stress dose given-switched to prednisone 5 mg daily
Blood cultures negative
Change Ancef to Ceftin
Abdomen soft and nontender
Off Levophed
#Hyponatremia likely secondary to relative adrenal insufficiency
Normalized.
Thyroid function test normal
#Frequent history of falls with right thigh hematoma and right knee effusion on Eliquis-resolved
#History of frequent falls with chronic ambulatory dysfunction uses a cane/walker at baseline
Received 1 unit of packed red blood cells May 28, 2023
#Chronic anemia-hemoglobin near baseline
Needs outpatient GI workup
#Hx DVT right peroneal vein
Doppler were negative on 05/30/23
Eliquis was DC'd due to fall risk last admission
#Mild mental retardation
#Mitral regurgitation
#GERD
-Continue PPI
-Needs GI evaluation As outpatient for endoscopy - D/w Delfina Norman [facility]
#Asthma chronic�no acute exacerbation
-On chronic prednisone
#Hypothyroidism
-Recent TSH 6.03 his Synthroid was increased from 88 mcg to 100 mcg
-TSH 2.25 with free T4 1.95 (IMPROVED)
-Continue Synthroid 100 mcg daily
#Hx sinus bradycardia
#BPH
- Finasteride
#Hx RLE cellulitis with sepsis December 2022
-Patient did require IV pressors, hypothermia protocol for this admission
#History of peptic ulcer disease-continue PPI
#DVT prophylaxis
Subcutaneous Lovenox
Discussed with nurse Delfina [facility] at [facility] and updated.
Anticipated Discharge: Within 24 hours
Subjective/Interval History
-
Date of Service: June 24, 2023
Objective Data
-
Labs:
Laboratory Results
06/24/23
05:01
WBC 6.4
Hgb 8.2 L
Hct 23.9 L
Plt Count 149
Sodium 137
Potassium 4.5
Chloride 112 H
Carbon Dioxide 25
BUN 35 H
Creatinine 1.0
Glucose 79
Calcium 7.5 L
Total Bilirubin 1.1
AST 29
ALT 23
Alkaline Phosphatase 73
Vital Signs:
Vital Signs
Temp Pulse Resp BP Pulse Ox
97.5 F 91 17 142/62 92
06/24/23 03:30 06/24/23 06:00 06/24/23 06:00 06/24/23 06:00 06/24/23 05:00
I&O
06/23/23 06/24/23 06/25/23
06:59 06:59 06:59
Intake Total 720 / 720
Output Total 1000 / 1000 600 / 600 200 / 200
Balance -1000 / -1000 120 / 120 -200 / -200
--- NOTE | 2023-06-24 10:00 | PTCARENOTE ---
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 Patient resting comfortably in bed. No events noted overnight. No complaints of pain. Scheduled for MRI today. O2 off and now on Room Air. Call pena in reach.
[2023-06-24] MEDS: CEFTIN 500 MG PO ×2 (10:08→19:32)
[2023-06-24] MEDS: PROTONIX 40 MG PO (10:08)
[2023-06-24] MEDS: VITAMIN D3 (cholecalciferol) 25 MCG PO (10:08)
[2023-06-24] MEDS: DELTASONE 5 MG PO (10:08)
[2023-06-24] MEDS: ASPIR LOW (ENTERIC COATED) 81 MG PO ×2 (10:08→19:32)
[2023-06-24] MEDS: PROSCAR 5 MG PO (10:08)
[2023-06-24] MEDS: IMDUR (EXTENDED RELEASE) 30 MG PO (10:08)
[2023-06-24] MEDS: OSCAL CAL 500 500 MG PO (10:08)
[2023-06-24] MEDS: GLUCOPHAGE 500 MG PO ×2 (10:08→18:10)
[2023-06-24] MEDS: LASIX 20 MG PO (10:08)
--- NOTE | 2023-06-24 10:10 | PTOTSP ---
Speech Language Pathology
Pt seen for dysphagia tx. Baseline slight wet vocal quality noted, which was cleared with a cued cough. Seen with breakfast tray of oatmeal and thin liquids. Also seen with trial of regular solids. Adequate mastication, bolus formation, and A-P
transit noted. Occasional trace labial leakage, suspect secondary to self-feeding, not a true oral dysphagia. Same wet vocal quality noted x1 which was noted at rest with spontaneous brief cough, which cleared this. Pt is at risk for aspiration.
However, all chest imaging clear with WBC WNL. Per MD note, plan is for outpatient GI.
Recommend:
(1) Continue regular solids/thin liquids
(2) Set-up assist
(3) Meds as tolerated
(4) CUT FILER to sign off. Please reconsult as indicated
--- NOTE | 2023-06-24 10:30 | W.PN.CD ---
Today's Communication / Plan
-
Continue medical therapy for CAD
Cardiology will sign off
Impression / Plan
-
Chest pain
- Trop negative
- No recurrence
- Med Rx, etiology uncertain, not clearly from his known CAD
- Echo unremarkable
Bifascicular block, chronic, asymptomatic
CAD
-He is no longer requiring BP support, resume medical therapy for CAD
-Cath 11/14/2003: LVEF 60%; 90% D1, 60% mOM3, 65% mRCA, mild to moderate diffuse mid and distal LAD disease.
Hypotension & hypothermia with underlying adrenal insufficiency => prednisone
Anemia, per primary
Hypothyroidism, on levothyroxine
Mild to moderate mitral regurgitation
Prior peroneal DVT, apixaban stopped due to fall risk
Developmental disability, resides in a halfway
Physical Exam
Vital Signs/Labs
Vital Signs
Temp Pulse Resp BP Pulse Ox
97.9 F 77 17 129/67 92
06/24/23 07:20 06/24/23 10:08 06/24/23 06:00 06/24/23 10:08 06/24/23 05:00
06/23/23 06/24/23 06/25/23
06:59 06:59 06:59
Actual Weight 67.6 kg 67.1 kg
06/24/23 05:01
06/24/23 05:01
TSH 2.29 uIU/ml (0.47-4.68) 06/22/23 11:08
Free T4 1.95 ng/dl (0.78-2.19) 06/22/23 11:08
06/22/23
11:08
Aij-A-Dcndzpqibid Pept 186
LAB Results
06/22/23 06/23/23 06/23/23
11:08 12:07 18:37
Troponin I 0.033 0.016 0.018
06/24/23
05:01
Troponin I 0.019
Physical Exam
Constitutional: No acute distress
Cardiovascular: Rhythm & rate is regular and Pedal edema is absent (at most trace)
Respiratory: Respiratory effort normal and Lungs clear to auscul.
GI: Soft and Distention absent
Neuro/Psych: AO x 3
Data Reviewed
-
Date of Service: June 24, 2023
--- NOTE | 2023-06-24 11:39 | CM ---
Addendum entered by Delfina Arteaga RN 06/24/23 15:40:
Phone message from [facility]; they are able to have ST see patient.
Met with patient who agrees to d/c home tomorrow by w/c van service. IMM completed.
Spoke with Delfina, Health & Wellness nurse, [facility] (ph [phone]); she met with the patient and feels he is back to his baseline for cognitive function & speech- she agrees with d/c tomorrow and is aware of 2pm transport time. She
requested pharmacy updated in [facility]- they need d/c meds sent to [facility] [address] - updated and MD & nurse made aware. The ph for report will be to Delfina [phone], fax [phone].
Plan home tomorrow, with [facility], by [facility] w/c van at 2pm.
Original Note:
Patient from [facility] with Hx including cognitive impairment with Dx chest pain, hypothermia/hypotension, hyponatremia. Room air. PO Abx. ST Eval noted. PT & OT Evals recommend HH.
Spoke with Delfina Health & Wellness nurse, [facility] (ph [phone]);
provided clinical update including PT/OT/ST recommendations. Delfina spoke with Dr Mcdaniel today who recommended she do on-site visit today to assess if patient's speech is at his baseline- she will be here this afternoon for that. Delfina tentatively
agrees to patient returning to their facility tomorrow by hospital arranged w/c van- she agrees with 1pm requested transport time. She is aware that [facility] has been requested. She prefers that the patient sign his own IMM.
Per Humera, Process Safety Engineering Technologist; w/c van arranged for tomorrow 1400// $145// [phone] ext [phone] with [facility].
Phone call to José Miguel Flores, Military Pay Clerk, [facility] (ph [phone]); left message with request to call [facility] ambulance with [facility] payment for w/c van for 2pm tomorrow.
Message from Dr Mcdaniel confirming that she would like the Speech Therapist to see the patient through VN.
Spoke with Marivel, Intake [facility]; they are able to accept the referral to resume service with SN/PT/OT however she is unsure if they have a Speech Therapist available- requested call back today once known.
Plan follow up with [facility] if they can provide ST.
Plan follow up with Delfina, Health & Wellness nurse, [facility] after on-site visit today.
Plan meet with patient today.
Plan probable home tomorrow, possibly with [facility], by [facility] w/c van at 2pm.
[2023-06-24] MEDS: FERRLECIT 110 MG IV (15:40)
[2023-06-24] MEDS: VITAMIN C 500 MG PO (15:44)
[2023-06-24] MEDS: LOVENOX 40 MG SC (18:09)
[2023-06-24] MEDS: FLOMAX 0.400000000000000022 MG PO (18:10)
[2023-06-24] MEDS: LIPITOR 20 MG PO (21:10)
[2023-06-25] VITALS: BP 157/77
[2023-06-25 01:00] VITALS: BP 147/75
--- NOTE | 2023-06-25 01:32 | PTCARENOTE ---
Pt AAOx3, displays baseline slow, garbled speech. Pt remains drowsy, but arousable to verbal stimuli and agreeable. VSS. Call pena within reach. Safe environment maintained
--- NOTE | 2023-06-25 02:56 | PTCARENOTE ---
pt transferred from IMU to [address] [place] [address] @ this time. Pt arrived by w/c, able to stand pivet to bed. VSS 94% on RA denies pain oriented to room. call pena within reach
[2023-06-25 03:00] VITALS: BP 137/61
--- NOTE | 2023-06-25 05:58 | PTCARENOTE ---
Pt slept comfortably throughout shift, cont void with urinal, EKG performed per order, copy in pt chart.
[2023-06-25 06:00] VITALS: BMI 25.7
[2023-06-25 06:11] LABS: % Basophils 0.2 % (0-2); % Eosinophils 0.4 % (0-6); % Immature Granulocytes 0.6 % (0-0.5); % Lymphocytes 7.5 % (20.5-51.1); % Monocytes 11.2 % (1.7-9.3); % Neutrophils 80.1 % (42.2-75.2); Absolute Immature Granulocytes 0.1 10^3/uL (0-0.05); Absolute Lymphocytes 0.6 10^3/uL (1.2-3.4); Absolute Monocytes 0.9 10^3/uL (0.1-0.6); Absolute Neutrophils 6.5 10^3/uL (1.4-6.5); Hematocrit 24.1 % (39.0-52.0); Hemoglobin 8.1 g/dL (13.0-18.0); Mean Corp Hgb Conc. 33.6 g/dL (33.0-37.0); Mean Corpuscular Hgb 30.7 pg (27.0-31.0); Mean Corpuscular Volume 91.3 fL (80.0-94.0); Mean Platelet Volume 10.5 fL (7.4-10.4); Nucleated Red Blood Cells % 0.2 % (-); Platelet Count 176 10^3/uL (130-400); Red Blood Cell Count 2.64 10^6/uL (4.70-6.10); Red Cell Dist. Width 18.1 % (11.5-14.5); White Blood Cell Count 8.2 10^3/uL (4.8-10.8)
[2023-06-25] MEDS: SYNTHROID 100 MCG PO (06:28)
[2023-06-25 06:41] LABS: Blood Urea Nitrogen 30 mg/dl (9-20); Calcium 8.1 mg/dl (8.4-10.2); Carbon Dioxide 26 mmol/L (22-30); Chloride 110 mmol/L (98-107); Estimated Creatinine Clearance 51 ml/min; Glucose 104 mg/dl (70-99); Potassium 4.3 mmol/L (3.5-5.1); Sodium 138 mmol/L (135-145); eGFR > 60.00
[2023-06-25 07:01] VITALS: BP 129/75
[2023-06-25] MEDS: SENOKOT 17.1999999999999993 MG PO (09:15)
[2023-06-25] MEDS: PROTONIX 40 MG PO (09:15)
--- NOTE | 2023-06-25 09:15 | W.PN.HOSP.TC ---
Today's Communication/Plan
-
Discharge
Assessment / Plan
Assessment / Plan
78-year-old male who was drowsy and lethargic in the ER yesterday is awake and alert and able to give me more history. Patient states that he came in to the ER yesterday because of chest pain. He states that he does not have any pain now. It went
away. He is not a great historian could not elaborate more than that.
CVS: S1-S2 normal, sm at apex
Chest: CTA B/L
Abdomen: Soft, NT / Bowel sounds present
Extremities: No edema, normal pulses
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
Unclear patient's baseline speech
Kyphosis
Rectal brown stool Heme negative
#Chest pain on admission
H/O CAD
Follows with Dr. Reardon as outpatient
Troponin negative
Cardiology evaluation appreciated
CT PE study -negative on 06/22/2023
DVT anticoagulation was stopped secondary to thigh hematoma and since ultrasound was negative on 05/30/2023.
Imdur restarted
# [facility] had concerns about patient's gait as well as speech therefore MRI of the brain was obtained-does not show any acute changes.
Requested [facility] to come and evaluate the patient and see if his speech is back to baseline. Patient is not a great historian.
MRI of the cervical spine to rule out cervical radiculopathy
�� � � � � � � � � � � � � � � � � � �
#Acute hypothermia/hypotension-likely secondary to relative adrenal insufficiency and cellulitis
Patient has been on chronic steroids mostly for his asthma-his cosyntropin test was borderline
Discussed with Dr. Malik recommended, switch to prednisone. Outpatient follow-up with endocrine recommended-[facility] aware
Temp better and off Bear hugger
Hydrocortisone stress dose given-switched to prednisone 5 mg daily
Blood cultures negative
Ceftin
Abdomen soft and nontender
Off Levophed
#Hyponatremia likely secondary to relative adrenal insufficiency
Normalized.
Thyroid function test normal
#Frequent history of falls with right thigh hematoma and right knee effusion on Eliquis-resolved
#History of frequent falls with chronic ambulatory dysfunction uses a cane/walker at baseline
Received 1 unit of packed red blood cells May 28, 2023
#Chronic anemia-hemoglobin near baseline
He is rectal heme-negative today
Needs outpatient GI workup
CBC in 1 week
#Hx DVT right peroneal vein
Doppler were negative on 05/30/23
Eliquis was DC'd last admission due to fall risk last admission
#Mild mental retardation
#Mitral regurgitation
#GERD
-Continue PPI
-Needs GI evaluation As outpatient for endoscopy - D/w Delfina [facility]
#Asthma chronic�no acute exacerbation
-On chronic prednisone
#Hypothyroidism
-Recent TSH 6.03 his Synthroid was increased from 88 mcg to 100 mcg
-TSH 2.25 with free T4 1.95 (IMPROVED)
-Continue Synthroid 100 mcg daily
#Hx sinus bradycardia
#BPH
- Finasteride
#Hx RLE cellulitis with sepsis December 2022
-Patient did require IV pressors, hypothermia protocol for this admission
#History of peptic ulcer disease-continue PPI
#DVT prophylaxis
Subcutaneous Lovenox
Discussed with [facility] at [facility] and updated. Regarding MRI findings on the cervical spine. Also antibiotic need for follow-up with GI as well as hematology for workup of anemia.
All follow-up care discussed with her. Offered to talk to family. They are on a daily. Therefore [facility] will email them regarding the update.
Discussed with nursing
Discharge time 33 min
Anticipated Discharge: Today
Subjective/Interval History
-
Date of Service: June 25, 2023
Objective Data
-
Labs:
Laboratory Results
06/25/23
04:17
WBC 8.2
Hgb 8.1 L
Hct 24.1 L
Plt Count 176
Sodium 138
Potassium 4.3
Chloride 110 H
Carbon Dioxide 26
BUN 30 H
Creatinine 1.0
Glucose 104 H
Calcium 8.1 L
Vital Signs:
Vital Signs
Temp Pulse Resp BP Pulse Ox
97.5 F 86 16 129/75 97
06/25/23 07:01 06/25/23 07:01 06/25/23 07:01 06/25/23 07:01 06/25/23 07:01
I&O
06/24/23 06/25/23 06/26/23
06:59 06:59 06:59
Intake Total 720 / 720 610 / 610
Output Total 600 / 600 1475 / 1475
Balance 120 / 120 -865 / -865
[2023-06-25] MEDS: GLUCOPHAGE 500 MG PO (09:16)
[2023-06-25] MEDS: CEFTIN 500 MG PO (09:16)
[2023-06-25] MEDS: MILK OF MAGNESIA 30 ML PO (09:16)
[2023-06-25] MEDS: DELTASONE 5 MG PO (09:17)
[2023-06-25] MEDS: OSCAL CAL 500 500 MG PO (09:17)
[2023-06-25] MEDS: VITAMIN D3 (cholecalciferol) 25 MCG PO (09:17)
[2023-06-25] MEDS: PROSCAR 5 MG PO (09:17)
[2023-06-25] MEDS: LASIX 40 MG PO (09:17)
[2023-06-25] MEDS: IMDUR (EXTENDED RELEASE) 30 MG PO (09:17)
[2023-06-25] MEDS: ASPIR LOW (ENTERIC COATED) 81 MG PO (09:20)
--- NOTE | 2023-06-25 09:29 | W.DS.TRANS ---
Addendum entered and electronically signed by Kelechi Mcdaniel MD 06/25/23 17:11:
Dictation- [id number]
Original Note:
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
-
Discharge Instructions:
Discharge Diagnosis/Procedures Chest pain, GERD, hyponatremia, frequent falls,
chronic ambulatory dysfunction, anemia, mitral
regurgitation, asthma, hypothyroidism, prostatic
hypertrophy, right lower extremity cellulitis,
peptic ulcer, compression fracture of inferior
endplate T2, chronic advanced DJD changes of
cervical spine, severe spinal canal stenosis C5-
C6, C6-C7, moderate spinal canal stenosis C3-C4,
C4-C5, C7-T1
Diet As tolerated,Diabetic, Carb Controlled
Activity As tolerated,With assistance
Driving Restrictions No driving
Others Tests endoscopy as OP
Other Services OT,PT,ST,VN
Instructions:
Stand-Alone Forms:
Changes to Home Medications: Yes
Discharge Medications:
DC Medications w/original date entered in [employer]
lansoprazole 30 mg capsule,delayed release (Prevacid) 30 mg PO DAILY Gastrointestinal issue 05/25/08
isosorbide mononitrate 30 mg tablet,extended release 24 hr 30 mg PO DAILY Heart Disease/Condition 06/11/15
alendronate 70 mg tablet 70 mg PO WE@0600 osteoporosis 08/10/20
prednisone 5 mg tablet 5 mg PO DAILY asthma 08/10/20
tamsulosin 0.4 mg capsule 0.4 mg PO QPM Urinary issue 08/10/20
cholecalciferol (vitamin D3) 25 mcg (1,000 unit) tablet (Vitamin D3) 25 mcg PO DAILY Supplement 01/21/23
finasteride 5 mg tablet 5 mg PO DAILY Urinary Issue 01/21/23
fluorouracil 5 % topical cream 1 applic topical BIDPRN PRN actinic/solar keratoses 01/21/23
furosemide 40 mg tablet 40 mg PO DAILY Fluid Retention/Swelling 01/21/23
triamcinolone acetonide 0.5 % topical cream 1 applic topical BIDPRN PRN skin issuses 01/21/23
metformin 500 mg tablet 500 mg PO BID@0800,1700 Diabetes 05/25/23
acetaminophen 500 mg tablet (Tylenol Extra Strength) 1,000 mg PO TID PRN pain 06/22/23
albuterol sulfate 2.5 mg/3 mL (0.083 %) solution for nebulization 2.5 mg inhalation Q4H PRN cough/wheezing 06/22/23
atorvastatin 20 mg tablet 20 mg PO HS High Cholesterol 06/22/23
calcium carbonate 600 mg calcium (1,500 mg) tablet 600 mg PO DAILY Supplement 06/22/23
dextromethorphan-guaifenesin 10 mg-100 mg/5 mL oral syrup 5 ml PO Q6H PRN cough 06/22/23
ferrous sulfate 325 mg (65 mg iron) tablet (FeroSul) 325 mg PO NOON Supplement 06/22/23
guaifenesin 600 mg tablet, extended release 12 hr (Mucinex) 600 mg PO BID PRN cough/congestion 06/22/23
levothyroxine 100 mcg tablet 100 mcg PO DAILY@0700 hypothyroidism 06/22/23
ascorbic acid (vitamin C) 500 mg tablet (Vitamin C) 500 mg PO DAILY@1200 Supplement #0 tabs 06/25/23
aspirin 81 mg tablet,delayed release 81 mg PO DAILY Blood Clot Prevention/Tx #0 tabs 06/25/23
cefuroxime axetil 500 mg tablet 500 mg PO BID Infection #6 tabs 06/25/23
polyethylene glycol 3350 17 gram oral powder packet (Miralax) 17 g PO DAILY Constipation #30 ea 06/25/23
Home Medication Changes
new
cefuroxime axetil 500 mg tablet 500 mg PO BID Infection #6 tabs 06/25/23
polyethylene glycol 3350 17 gram oral powder packet (Miralax) 17 g PO DAILY Constipation #30 ea 06/25/23
AsA changed to daily
Pending Results: No
--- NOTE | 2023-06-25 11:22 | CM ---
Per MD, patient is medically cleared for discharge back to [facility]. Contact is Delfina Butler RN @ [phone]. Facility is having power outage and therefore unable to have discharge documents faxed. Delfina requested
documents be sent with patient. Report can be given to Delfina at above number. Wheelchair transport has been scheduled for 2:00PM.
[2023-06-25 11:28] VITALS: BP 151/76
[2023-06-25] MEDS: VITAMIN C 500 MG PO (11:30)
[2023-06-25] MEDS: FERRLECIT 110 MG IV (11:30)
[2023-06-25] MEDS: FLUSH (NSS) 2 FLUSH IV (11:31)
== END 2023-06-25 14:09 | disposition home health service (06) | DRG 644 ==
LOC: 2 SOUTH 15:35
PROVIDERS: Clinical Nurse Specialist Family Health; Nurse Practitioner Gerontology; Physician Assistant; ADMITTING PHYSICIAN Hospitalist; EMERGENCY PHYSICIAN Emergency Medicine; OTHER PHYSICIAN Internal Medicine Cardiovascular Disease
DX: E27.40 Unspecified adrenocortical insufficiency (principal); E87.1 Hypo-osmolality and hyponatremia; L03.90 Cellulitis, unspecified; R07.1 Chest pain on breathing; Z79.52 Long term (current) use of systemic steroids; I95.9 Hypotension, unspecified; D64.9 Anemia, unspecified; E61.1 Iron deficiency; F70 Mild intellectual disabilities; I25.10 Atherosclerotic heart disease of native coronary artery without angina pectoris; K21.9 Gastro-esophageal reflux disease without esophagitis; J44.89 Other specified chronic obstructive pulmonary disease; E03.9 Hypothyroidism, unspecified; N40.0 Benign prostatic hyperplasia without lower urinary tract symptoms; Z79.82 Long term (current) use of aspirin
CPT/HCPCS: 70450; 70551; 71045; 71275; 72141; 80048; 80053; 81003; 82533; 82607; 82805; 82962; 83605; 83880; 84439; 84443; 84484; 85025; 87040; 87070; 92526; 92610; 93005; 93306; 96361; 96365; 96375; 97163; 97167; 99285; J2916; Q9967

== ENCOUNTER 2023-07-02 16:51 | Inpatient (IN) | payer MEDICARE, SELFPAY ==
[2023-07-02] VITALS (14 sets, daily range): BP systolic 94–156; BP diastolic 48–100; BMI 13.8; BMI 22.8
--- NOTE | 2023-07-02 11:00 | EDRN ---
Bare Hugger in place over pt for rectal temp 92.7 pr
[2023-07-02 11:20] LABS: % Basophils 0.2 % (0-2); % Eosinophils 1.5 % (0-6); % Immature Granulocytes 0.6 % (0-0.5); % Lymphocytes 7.7 % (20.5-51.1); % Monocytes 6.4 % (1.7-9.3); % Neutrophils 83.6 % (42.2-75.2); Absolute Eosinophils 0.1 10^3/uL (0-0.7); Absolute Lymphocytes 0.5 10^3/uL (1.2-3.4); Absolute Monocytes 0.4 10^3/uL (0.1-0.6); Absolute Neutrophils 5.5 10^3/uL (1.4-6.5); Hematocrit 22.7 % (39.0-52.0); Hemoglobin 7.6 g/dL (13.0-18.0); Mean Corp Hgb Conc. 33.5 g/dL (33.0-37.0); Mean Corpuscular Hgb 31.3 pg (27.0-31.0); Mean Corpuscular Volume 93.4 fL (80.0-94.0); Mean Platelet Volume 9.4 fL (7.4-10.4); Nucleated Red Blood Cells % 0 % (-); Platelet Count 186 10^3/uL (130-400); Red Blood Cell Count 2.43 10^6/uL (4.70-6.10); Red Cell Dist. Width 18.6 % (11.5-14.5); White Blood Cell Count 6.6 10^3/uL (4.8-10.8)
[2023-07-02 11:33] LABS: Lactic Acid 1.6 mmol/L (0.7-2.0)
[2023-07-02 11:45] LABS: ALT (SGPT) 34 U/L (0-50); AST (SGOT) 31 U/L (17-59); Albumin 3.3 g/dl (3.5-5.0); Alkaline Phosphatase 102 U/L (38-126); Blood Urea Nitrogen 27 mg/dl (9-20); Calcium 8.3 mg/dl (8.4-10.2); Carbon Dioxide 24 mmol/L (22-30); Chloride 100 mmol/L (98-107); Estimated Creatinine Clearance 37 ml/min; Glucose 332 mg/dl (70-99); Potassium 4.4 mmol/L (3.5-5.1); Sodium 129 mmol/L (135-145); Total Bilirubin 2.7 mg/dl (0.2-1.3); Total Protein 5.9 g/dl (6.3-8.2); eGFR > 60.00
[2023-07-02 12:17] LABS: Urine Albumin Negative (Neg - Trace); Urine Bilirubin Negative (Negative); Urine Character Clear (Clear); Urine Color Yellow; Urine Glucose 2+ (Negative); Urine Ketone Negative (Negative); Urine Leukocyte Negative (Negative); Urine Nitrite Negative (Negative); Urine Occult Blood Negative (Negative); Urine Urobilinogen Negative (Neg - 1+)
--- NOTE | 2023-07-02 12:30 | EDRN ---
Dr. Reynolds in room w/ pt.
[2023-07-02 12:31] LABS: COVID-19 Antigen Positive (Negative)
--- NOTE | 2023-07-02 13:01 | ED.GENMED ---
History of Present Illness
General
Chief Complaint: Weakness
Source: patient and ambulance crew
Exam Limitations: altered mental status
Time Seen by Provider: 07/02/23 11:04
Nursing documentation reviewed up to this point in time: agreed with
Travel History
Have you had any contact with someone who has COVID-19?: No
Do you have any symptoms of coronavirus? Fever > 100 degrees, chills, cough, shortness of breath, sore throat, loss of taste or smell, muscle aches, or headache?: Yes
Symptoms:: body aches and pains, weakness
History of Present Illness
History of Present Illness:
Patient with history of mild MR, presents to ED from nursing home secondary to increasing generalized weakness along with hypotension. Upon arrival, patient is found to be hypothermic, but does not offer any additional complaints. Denies chest pain
or shortness of breath. Denies coughing. Denies vomiting or diarrhea. Denies rash. Patient is complaining of diffuse back pain and headache.
Past History
Past History
ED Past Medical History: CAD, GERD, Hypercholesterolemia and Other (Mild MR, anemia, diverticulosis)
ED Past Surgical History: Cholecystectomy and Other (Gastric ulcer, cataracts)
Social History
Tobacco: Non-smoker
Alcohol: None
Drug: None
Living: assisted living
Review of Systems
Review of Systems
Allergies reviewed?: Yes
Other source history: skilled nursing
All Other Systems: ROS reviewed and negative except as documented in HPI and ROS
Constitutional: Reports no symptoms
EENT: Reports no symptoms
Respiratory: Reports no symptoms
Cardiac: Reports no symptoms
ABD/GI: Reports no symptoms
: Reports no symptoms
Musculoskeletal: Reports back pain
Skin: Reports no symptoms
Neurological: Reports headache
Phy Exam
Physical Exam
Physical Exam:
Physical Exam
General: no apparent distress, not acutely ill. afebrile. hypothermic
Head: nc/at. eomi
Neck: supple. no meningeal signs.
Heart: s1/s2 regular rate and rhythm, no murmur. equal radial pulses.
Lungs: no acute respiratory distress. clear bilaterally
Abdomen: normal bowel sounds. not tender.
Neuro: alert and oriented. no focal neurological deficits
Skin: no rash
Psychiatric: well kept. interactive and cooperative
Extremities: no edema. no calf tenderness.
Course
Orders/Labs/Results
Orders:
Orders
07/02/23 11:00
Electrocardiogram (*1) Urgent
Reason for Study: Chest Pain
Cardiac Monitoring- Treatment ONCE
EKG- Treatment ONCE
IV Insert/Care/Rem.- Treatment PRN
07/02/23 11:12
Complete Blood Count/With Diff Urgent
Comprehensive Metabolic Panel Urgent
Lactic Acid Urgent
Blood Culture Q30M
MORAIMA Source: Blood/Venous
Specimen Description:
Date Specimen was Collected: 07/02/23
Time Specimen was Collected: 11:00
07/02/23 11:57
Type+Screen Urgent
COVID-19 Antigen Urgent
Source: Nasal Swab
Urinalysis Reflex To Culture Urgent
Date Specimen was Collected: 07/02/23
Time Specimen was Collected: 11:55
Blood Culture Q30M
MORAIMA Source: Blood/Venous
Specimen Description:
Date Specimen was Collected: 07/02/23
Time Specimen was Collected: 11:00
07/02/23 16:30
Admit/Transfer Patient As Directed
Co-Sign Provider:
Level of Care: Inpatient admission
Assign to:: Medical/Surgical
Physician / Group: [facility]/Hospitalist
Diagnosis: covid
Reason for Hospitalization: Covid
Expected length of stay greater than two midnights?: Yes
ELOS- Estimated Length of Stay in days: 4
I certify the patient meets the requirements for IP care: Yes
07/02/23 16:33
Code Status As Directed
Resuscitation Status: Do not resuscitate
Based on pt advanced directive or healthcare POA form: Yes
07/02/23 16:34
DNR Bracelet Application ONCE
Abnormal Lab Results
07/02/23 07/02/23
11:12 11:57
RBC 2.43 L 10^6/uL
(4.70-6.10)
Hgb 7.6 L g/dL
(13.0-18.0)
Hct 22.7 L %
(39.0-52.0)
MCH 31.3 H pg
(27.0-31.0)
RDW 18.6 H %
(11.5-14.5)
Absolute Lymphs (auto) 0.5 L 10^3/uL
(1.2-3.4)
Immature Gran % 0.6 H %
(0-0.5)
Neutrophils % 83.6 H %
(42.2-75.2)
Lymphocytes % 7.7 L %
(20.5-51.1)
Sodium 129 L mmol/L
(135-145)
BUN 27 H mg/dl
(9-20)
Glucose 332 H mg/dl
(70-99)
Calcium 8.3 L mg/dl
(8.4-10.2)
Total Bilirubin 2.7 H mg/dl
(0.2-1.3)
Total Protein 5.9 L g/dl
(6.3-8.2)
Albumin 3.3 L g/dl
(3.5-5.0)
Urine Glucose 2+ A
(Negative)
SARS-CoV-2 Antigen Positive A
(Negative)
07/02/23 11:12
07/02/23 11:12
Vital Signs
Initial and Last Documented VS:
Initial Vital Signs
BP
129/58
07/02/23 10:56
Last Documented Vital Signs
Temp Pulse Resp BP Pulse Ox
96.3 F L 69 9 94/56 97
07/02/23 14:49 07/02/23 17:15 07/02/23 17:00 07/02/23 17:00 07/02/23 17:15
MDM/Problems Addressed
MDM/Problems Addressed:
COVID-19 test positive. Patient's presenting hypothermia likely secondary to ongoing COVID infection. Chronic anemia noted. Patient will be placed on Abbie hugger and be admitted for further evaluation/treatment.
*Critical Care Note
Total Time (30-74mins, 75-104mins- exclusive of procedures): Not Applicable
ED Attending Note
-
Portions of this chart may have been created with voice recognition software.� Occasional wrong word or��sound alike� substitutions may have occurred due to the inherent limitations of voice recognition software.
Discharge Plan
Departure
Patient Disposition: Admit
Date of Disposition: 07/02/23
Time of Disposition: 13:04
Admit to: Telemetry
Presentation/result/management discussed w/ accepting MD/DO: Hospitalist
Discharge Problem:
COVID-19, Hypothermia
Interventions
Interventions:
*Risk Screen - Suicide Last Done: 07/02/23 11:05
*General Assessment Last Done: 07/02/23 11:05
*Neglect/Abuse Screening Last Done: 07/02/23 11:05
ED- Fall Risk Assessment Last Done: 07/02/23 11:05
*ED COVID-19 Vaccine History Last Done: 07/02/23 11:05
ED- Cardiac Assessment Last Done: 07/02/23 11:50
ED- Neurological Assessment Last Done: 07/02/23 11:50
ED- Pulmonary Assessment Last Done: 07/02/23 11:50
--- NOTE | 2023-07-02 14:23 | EDRN ---
Dr. Subramanian in room w/ pt at this time.
--- NOTE | 2023-07-02 14:36 | EDRN ---
This RN contacted [facility] about how to notify POA. They will notify POA as they usually do via e-mail w/ info that This RN gave them. This RN was also told by facility that pt is not ajudicated and is able to make his own decisions even
with his mild MR.
--- NOTE | 2023-07-02 14:37 | EDRN ---
This RN sent a TT to Dr. Subramanian on what I was informed of from [facility] per pt's decision making.
--- NOTE | 2023-07-02 14:50 | EDRN ---
Rectal temp 96.3 and pt covered in 3 warm blankets and bare hugger now off at this time. This RN TT'd Dr. Subramanian.
--- NOTE | 2023-07-02 16:59 | W.PN.HOSP.TC ---
Today's Communication/Plan
-
start Molnupivir
Assessment / Plan
Assessment / Plan
Acute Covid-19
hypothermia
mild mental retardation
[facility] in a jail
chronic ambulatory dysfunction
chronic anemia
asthma on chronic Prednisone
P:admit with loi jules
Molnupivir
ID consult
As per Living Will he is a DNR
see dictated note
Anticipated Discharge: > 48 hours
Subjective/Interval History
-
Date of Service: July 02, 2023
weakness and hypothermia from jail with studies demonstrating Covid 19
Objective Data
-
Labs:
Laboratory Results
07/02/23
11:12
WBC 6.6
Hgb 7.6 L
Hct 22.7 L
Plt Count 186
Sodium 129 L
Potassium 4.4
Chloride 100
Carbon Dioxide 24
BUN 27 H
Creatinine 0.9
Glucose 332 H
Calcium 8.3 L
Total Bilirubin 2.7 H
AST 31
ALT 34
Alkaline Phosphatase 102
Vital Signs:
Vital Signs
Temp Pulse Resp BP Pulse Ox
96.3 F L 83 15 119/48 97
07/02/23 14:49 07/02/23 16:15 07/02/23 16:15 07/02/23 16:00 07/02/23 16:15
Review of Systems
-
History Source: Patient and Physician (reviewed with Dr. Reynolds)
Constitutional: Reports Fever (hypothermia)
Respiratory: Reports No Symptoms; Denies Trouble Breathing
Cardiac: Reports No Symptoms; Denies Chest Pain
Abdomen/GI: Reports No Symptoms
Physical Exam
-
General: Well Developed, Well Nourished and No Apparent Distress
HEENT: Normocephalic, Atraumatic and Moist Mucous Membranes
Respiratory: Clear to Auscultation (on limited exam with shallow breaths); Negative Wheezes, Rales or Rhonchi
Cardiac: Regular Rhythm and S1/S2
GI: Soft, Nontender and Nondistended
Musculoskeletal: No Clubbing, No Cyanosis and No Edema
Neuro: Awake, Alert and Other (cognitive impairment)
--- NOTE | 2023-07-02 18:41 | EDRN ---
Pt had another saturated diaper and [facility].
[2023-07-02] MEDS: FLOMAX 0.400000000000000022 MG PO (22:02)
[2023-07-02] MEDS: HEPARIN 5000 UNITS SC (22:02)
[2023-07-02] MEDS: OSCAL CAL 500 500 MG PO (22:02)
[2023-07-02] MEDS: ASPIR LOW (ENTERIC COATED) 81 MG PO (22:02)
[2023-07-02] MEDS: LIPITOR 20 MG PO (22:02)
[2023-07-02] MEDS: VITAMIN D3 (cholecalciferol) 25 MCG PO (22:02)
[2023-07-02] MEDS: MOLNUPIRAVIR (EUA) 800 MG PO (22:10)
[2023-07-02 23:11] LABS: Glucose - Point of Care 80 mg/dl (70-99)
--- NOTE | 2023-07-03 00:23 | PTCARENOTE ---
Pt arrived onto floor @2140. Was a order puller to the bed. Pt and staff were wearing masks, as he was COVID +. Pt was oriented to room and call pena, will continue to monitor
[2023-07-03] MEDS: SYNTHROID 100 MCG PO (05:35)
[2023-07-03 07:15] VITALS: BP 173/80
[2023-07-03 07:15] LABS: Glucose - Point of Care 78 mg/dl (70-99)
[2023-07-03 07:57] LABS: % Basophils 0.5 % (0-2); % Eosinophils 0.7 % (0-6); % Immature Granulocytes 0.7 % (0-0.5); % Lymphocytes 7.7 % (20.5-51.1); % Monocytes 10.4 % (1.7-9.3); Absolute Lymphocytes 0.4 10^3/uL (1.2-3.4); Absolute Monocytes 0.6 10^3/uL (0.1-0.6); Absolute Neutrophils 4.5 10^3/uL (1.4-6.5); Hematocrit 25.2 % (39.0-52.0); Hemoglobin 8.6 g/dL (13.0-18.0); Mean Corp Hgb Conc. 34.1 g/dL (33.0-37.0); Mean Corpuscular Hgb 31.3 pg (27.0-31.0); Mean Corpuscular Volume 91.6 fL (80.0-94.0); Mean Platelet Volume 9.5 fL (7.4-10.4); Nucleated Red Blood Cells % 0.7 % (-); Platelet Count 241 10^3/uL (130-400); Red Blood Cell Count 2.75 10^6/uL (4.70-6.10); Red Cell Dist. Width 18.8 % (11.5-14.5); White Blood Cell Count 5.7 10^3/uL (4.8-10.8)
[2023-07-03 08:15] LABS: Albumin 3.5 g/dl (3.5-5.0)
[2023-07-03 08:29] LABS: ALT (SGPT) 32 U/L (0-50); AST (SGOT) 33 U/L (17-59); Alkaline Phosphatase 124 U/L (38-126); Blood Urea Nitrogen 24 mg/dl (9-20); Calcium 9.1 mg/dl (8.4-10.2); Carbon Dioxide 25 mmol/L (22-30); Chloride 103 mmol/L (98-107); Estimated Creatinine Clearance 52 ml/min; Glucose 76 mg/dl (70-99); Potassium 4.8 mmol/L (3.5-5.1); Sodium 132 mmol/L (135-145); Total Bilirubin 3.4 mg/dl (0.2-1.3); Total Protein 6.3 g/dl (6.3-8.2); eGFR > 60.00
[2023-07-03] MEDS: NOVOLOG FLEXPEN-LOW RESISTANCE SC ×3 (08:45→16:58)
[2023-07-03] MEDS: IMDUR (EXTENDED RELEASE) 30 MG PO (09:46)
[2023-07-03] MEDS: PROTONIX 40 MG PO (09:47)
[2023-07-03] MEDS: PROSCAR 5 MG PO (09:47)
[2023-07-03] MEDS: LASIX 40 MG PO (09:47)
[2023-07-03] MEDS: HEPARIN 5000 UNITS SC ×2 (09:47→21:56)
[2023-07-03] MEDS: GLUCOPHAGE 500 MG PO ×2 (09:47→15:17)
[2023-07-03] MEDS: DELTASONE 5 MG PO (09:47)
[2023-07-03] MEDS: MOLNUPIRAVIR (EUA) 800 MG PO ×2 (09:47→22:25)
[2023-07-03] MEDS: MIRALAX 17 GRAMS PO (09:47)
--- NOTE | 2023-07-03 10:03 | W.PN.HOSP.TC ---
Addendum entered and electronically signed by Harjit Subramanian MD 07/03/23 17:56:
call received from [facility], where brother called in from [facility] and Shahida Butler relayed what the brother was saying and then relayed my answers to the brother. Major concern was inability to get into the specialist office in
a timely manner. Explained that I don't control their schedule and would have to call their office directly. She voiced her understanding
Addendum entered and electronically signed by Harjit Subramanian MD 07/03/23 17:49:
communicated with brother, RISHABH,wishes for the Living Will to be disregarded and pt is now a full code at this time
Original Note:
Today's Communication/Plan
-
ID consult
recheck labs
Assessment / Plan
Assessment / Plan
Acute Covid-19
hypothermia
resolved
mild mental retardation
lives in a [facility]
chronic ambulatory dysfunction
chronic anemia
8.1-->07/01 7.6-->07/02 8.6
asthma on chronic Prednisone
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
elevated total Bili
will echeck tomorrow, ?[facility]
P:admit with loi doradoer
Molnupivir
ID consult
As per Living Will he is a DNR
Anticipated Discharge: 24 - 48 hours
Subjective/Interval History
-
Date of Service: July 03, 2023
does not appear to be in distress, minimally communicative
Objective Data
-
Labs:
Laboratory Results
07/03/23
07:13
WBC 5.7
Hgb 8.6 L
Hct 25.2 L
Plt Count 241 D
Sodium 132 L
Potassium 4.8
Chloride 103
Carbon Dioxide 25
BUN 24 H
Creatinine 1.1
Glucose 76
Calcium 9.1
Total Bilirubin 3.4 H
AST 33
ALT 32
Alkaline Phosphatase 124
Vital Signs:
Vital Signs
Temp Pulse Resp BP Pulse Ox
99.1 F 116 16 173/80 96
07/03/23 07:15 07/03/23 07:15 07/03/23 07:15 07/03/23 07:15 07/03/23 07:15
I&O
07/02/23 07/03/23 07/04/23
06:59 06:59 06:59
Intake Total 240 / 240
Balance 240 / 240
Review of Systems
-
History Source: Patient
Constitutional: Reports Fever (hypothermia appears to have resolved)
Respiratory: Reports No Symptoms; Denies Trouble Breathing
Cardiac: Reports No Symptoms; Denies Chest Pain
Abdomen/GI: Reports No Symptoms
Physical Exam
-
General: Well Developed, Well Nourished and No Apparent Distress
HEENT: Normocephalic, Atraumatic and Moist Mucous Membranes
Respiratory: Clear to Auscultation (on limited exam with shallow breaths); Negative Wheezes, Rales or Rhonchi
Cardiac: Regular Rhythm and S1/S2
GI: Soft, Nontender and Nondistended
Musculoskeletal: No Clubbing, No Cyanosis and No Edema
Neuro: Awake, Alert and Other (cognitive impairment)
[2023-07-03 11:39] LABS: Glucose - Point of Care 85 mg/dl (70-99)
--- NOTE | 2023-07-03 11:51 | CON.ID ---
Consultation
-
Date/Time Consultation Requested: 07/02/2023 2117
Date/Time Consultation Performed: 07/03/2023 1148
Requesting Provider: Dr. Subramanian
Performing Provider: Dr. Dickey
Reason for Consultation: COVID-19 positive
Chief Complaint / Past History
History of Present Illness
Rik Alcaraz is a 78-year-old male with a significant past medical history of mild intellectual disability and CAD being evaluated at the request of Dr. Subramanian in regards to COVID-19 positive testing. History is obtained from chart review alone as
the patient provided no history for me.
The [facility] lives in a [facility] and [facility] to [facility] on 07/02/2023 after developing generalized increased weakness and reported hypotension. He was found to be hypothermic in the emergency room but denied any additional complaints.
Specifically he denied any chest pain or shortness of breath. He denied any cough. Because of concern for COVID-19 causing his hypothermia, he has been started on molnupiravir. Infectious Diseases is asked to comment upon further antimicrobial
therapy.
Of note, current mental status is markedly decreased from his baseline as per staff a the [facility].
Past History
Additional Past Medical History:
CAD
GERD
Dyslipidemia
Intellectual disability
Anemia
Diverticulosis
Additional Past Surgical History:
Cholecystectomy
Gastric surgery
Cataract surgery
Allergy History:
No Known Allergies Allergy (Verified 07/02/23 11:26)
Medications Reviewed: Yes
Current Antibiotics:
Molnupiravir 800 mg p.o. every 12 hours
Social History
Tobacco: Non-Smoker
Alcohol: None
Drug: None
Personal: Single
Living: Assisted Living ([facility])
Employment: Not Employed
Family History
Family History: Unable to Obtain
Review of Systems
Vital Signs
Temp Pulse Resp BP Pulse Ox
99.1 F 116 16 173/80 96
07/03/23 07:15 07/03/23 07:15 07/03/23 07:15 07/03/23 07:15 07/03/23 07:15
Physical Exam
Physical Exam
Constitutional: No Acute Distress, Comfortable, Chronically Ill and Non-toxic
Head: Normocephalic
Eyes: Pupils Equal, Pupils Round, No Conjunctival Hemorrhage and Sclera Anicteric
Pharynx: Benign
Oral: No Thrush and No Ulcers
Cardiovascular: S1/S2; Negative S3/S4 or Murmur
Pulmonary: Non Labored; Negative Wheezes, Rales or Rhonchi
Gastrointestinal: Soft, Non Tender, Non Distended, Normal Bowel Sounds, No Rebound and No Guarding
Genito-Urinary: Negative CVA Tenderness
Extremities: Venous Insufficiency (Bilateral lower extremities.) and Other (Areas of ecchymosis noted on the right hip and left thigh); Negative Edema
Neurological: Other (Arousable and responsive to touch. Nonverbal for me.); Negative Meningeal Signs
.
Lab / Diagnostic Study Results
07/03/23 07:13
07/03/23 07:13
Abs Immat Gran (auto) 0.0 10^3/uL (0-0.05) 07/03/23 07:13
Absolute Neuts (auto) 4.5 10^3/uL (1.4-6.5) 07/03/23 07:13
Absolute Lymphs (auto) 0.4 10^3/uL (1.2-3.4) L 07/03/23 07:13
Absolute Monos (auto) 0.6 10^3/uL (0.1-0.6) 07/03/23 07:13
Absolute Basos (auto) 0.0 10^3/uL (0-0.2) 07/03/23 07:13
Immature Gran % 0.7 % (0-0.5) H 07/03/23 07:13
Neutrophils % 80.0 % (42.2-75.2) H 07/03/23 07:13
Lymphocytes % 7.7 % (20.5-51.1) L 07/03/23 07:13
Monocytes % 10.4 % (1.7-9.3) H 07/03/23 07:13
Eosinophils % 0.7 % (0-6) 07/03/23 07:13
Basophils % 0.5 % (0-2) 07/03/23 07:13
Lactic Acid 1.6 mmol/L (0.7-2.0) 07/02/23 11:12
C-Reactive Protein 22.00 mg/L (0.0-10.00) H 07/03/23 07:13
Microbiology Results
Micro:
07/02/23 11:12 Blood Culture - Preliminary
Blood/Venous No Growth in 24 hours- Final report to follow
07/03/23 05:36 MRSA Screen - Pending
Nose
07/02/23 11:57 Blood Culture - Pending
Blood/Venous
Laboratory Tests
07/02/23
11:57
SARS-CoV-2 Antigen Positive A
Assessment / Plan
COVID-19 positive
- No respiratory symptoms at present. Vital signs stable.
Generalized weakness
Encephalopathy
- suspect TME
CAD
GERD
Dyslipidemia
Intellectual disability
Anemia
Diverticulosis
Recommendations:
Continue with molnupiravir to complete a 5-day course.
Monitor mental status.
Follow white count and temperature curve.
Care Review
Plan reviewed with: Physician (Hospitalist)
[2023-07-03] MEDS: VITAMIN C 500 MG PO (15:10)
[2023-07-03 15:27] VITALS: BP 102/66
[2023-07-03 16:43] LABS: Glucose - Point of Care 96 mg/dl (70-99)
[2023-07-03] MEDS: FLOMAX 0.400000000000000022 MG PO (17:17)
--- NOTE | 2023-07-03 17:20 | CM ---
[facility]spoke with estephanie nurse coordinator at facility.patient with a mild ID,he ambulates with S with a cane or walker,uses a wc for longer distances.his brother toro montanez is poa(in [place] now).he is adm
with covid +.id cs,on prednisone for asthma.patient has [facility]/pt/ot and speech and estephanie would like referral back to [facility].
[facility].Patient will need [facility] van transport back to facility.
[2023-07-03] MEDS: D5/0.45%NSS with KCL 10 MEQ 1000 IV (17:51)
--- NOTE | 2023-07-03 18:30 | PTCARENOTE ---
Pt drowsy with poor appetite this shift. VSS WNL. TT to Dr. Subramanian to request IV fluids for hydration. Order rec'd for D5/0.45% NSS w KCl 10 meq @ 80 ml/hr.
[2023-07-03 21:54] LABS: Glucose - Point of Care 131 mg/dl (70-99)
[2023-07-03] MEDS: VITAMIN D3 (cholecalciferol) 25 MCG PO (21:56)
[2023-07-03] MEDS: LIPITOR 20 MG PO (21:56)
[2023-07-03] MEDS: OSCAL CAL 500 500 MG PO (21:56)
[2023-07-03] MEDS: ASPIR LOW (ENTERIC COATED) 81 MG PO (21:56)
[2023-07-03 23:59] VITALS: BP 145/68
[2023-07-04] MEDS: SYNTHROID 100 MCG PO (05:49)
[2023-07-04] MEDS: D5/0.45%NSS with KCL 10 MEQ 1000 IV ×2 (06:00→20:23)
[2023-07-04 06:50] LABS: % Basophils 0.4 % (0-2); % Eosinophils 0.2 % (0-6); % Immature Granulocytes 0.2 % (0-0.5); % Monocytes 16.4 % (1.7-9.3); % Neutrophils 73.8 % (42.2-75.2); Absolute Lymphocytes 0.5 10^3/uL (1.2-3.4); Absolute Monocytes 0.9 10^3/uL (0.1-0.6); Absolute Neutrophils 3.9 10^3/uL (1.4-6.5); Hematocrit 24.1 % (39.0-52.0); Hemoglobin 8.3 g/dL (13.0-18.0); Mean Corp Hgb Conc. 34.4 g/dL (33.0-37.0); Mean Corpuscular Hgb 31.2 pg (27.0-31.0); Mean Corpuscular Volume 90.6 fL (80.0-94.0); Mean Platelet Volume 9.4 fL (7.4-10.4); Nucleated Red Blood Cells % 0 % (-); Platelet Count 231 10^3/uL (130-400); Red Blood Cell Count 2.66 10^6/uL (4.70-6.10); Red Cell Dist. Width 18.5 % (11.5-14.5); White Blood Cell Count 5.2 10^3/uL (4.8-10.8)
[2023-07-04 07:00] VITALS: BP 125/58
[2023-07-04 07:10] LABS: ALT (SGPT) 29 U/L (0-50); AST (SGOT) 61 U/L (17-59); Alkaline Phosphatase 96 U/L (38-126); Blood Urea Nitrogen 36 mg/dl (9-20); Calcium 8.5 mg/dl (8.4-10.2); Carbon Dioxide 23 mmol/L (22-30); Chloride 100 mmol/L (98-107); Estimated Creatinine Clearance 32 ml/min; Glucose 126 mg/dl (70-99); Sodium 132 mmol/L (135-145); Total Bilirubin 2.5 mg/dl (0.2-1.3); Total Protein 5.7 g/dl (6.3-8.2); eGFR 38.53
[2023-07-04 07:17] LABS: Potassium 4.9 mmol/L (3.5-5.1)
[2023-07-04 09:19] LABS: Glucose - Point of Care 124 mg/dl (70-99)
[2023-07-04] MEDS: NOVOLOG FLEXPEN-LOW RESISTANCE SC (09:20)
[2023-07-04] MEDS: PROSCAR 5 MG PO (09:21)
[2023-07-04] MEDS: PROTONIX 40 MG PO (09:21)
[2023-07-04] MEDS: HEPARIN 5000 UNITS SC ×2 (09:21→20:22)
[2023-07-04] MEDS: MIRALAX 17 GRAMS PO (09:21)
[2023-07-04] MEDS: GLUCOPHAGE 500 MG PO ×2 (09:21→17:32)
[2023-07-04] MEDS: LASIX 40 MG PO (09:21)
[2023-07-04] MEDS: DELTASONE 5 MG PO (09:21)
[2023-07-04] MEDS: MOLNUPIRAVIR (EUA) 800 MG PO ×2 (09:21→20:22)
[2023-07-04] MEDS: IMDUR (EXTENDED RELEASE) 30 MG PO (09:21)
--- NOTE | 2023-07-04 11:29 | W.PN.ID1 ---
Date of Service
Date of Service: July 04, 2023
Today's Communication
Continue antiviral.
Assessment / Plan
COVID-19 positive
- No respiratory symptoms at present. Vital signs stable.
Generalized weakness
Encephalopathy
- suspect TME
CAD
GERD
Dyslipidemia
Intellectual disability
Anemia
Diverticulosis
Recommendations:
Continue with molnupiravir to complete a 5-day course.
Monitor mental status.
Follow white count and temperature curve.
Chief Complaint
-: Other (Covid-19)
Subjective / Review of Systems
Review of Systems: No Fever
Vital Signs / Physical Exam
Vital Signs
Vital Signs
Temp Pulse Resp BP Pulse Ox
98.4 F 73 16 125/58 95
07/04/23 07:00 07/04/23 07:00 07/04/23 07:00 07/04/23 07:00 07/04/23 07:00
Physical Exam
Constitutional: Chronically Ill and Non-toxic
Cardiovascular: S1/S2; Negative S3/S4
Pulmonary: Non Labored
Skin: Negative Rash or Jaundice
Psychological: Calm
Objective Data
Lab Data
Lab Results
07/04/23 06:14
07/04/23 06:14
Estimated Creat Clear 32 ml/min 07/04/23 06:14
Lactic Acid 1.6 mmol/L (0.7-2.0) 07/02/23 11:12
Total Bilirubin 2.5 mg/dl (0.2-1.3) H 07/04/23 06:14
AST 61 U/L (17-59) H 07/04/23 06:14
ALT 29 U/L (0-50) 07/04/23 06:14
Alkaline Phosphatase 96 U/L (38-126) 07/04/23 06:14
C-Reactive Protein 22.00 mg/L (0.0-10.00) H 07/03/23 07:13
Most recent labs reviewed.
Micro Results:
07/02/23 11:12 Blood Culture - Preliminary
Blood/Venous No Growth in 48 hours- Final report to follow
07/03/23 05:36 MRSA Screen - Final
Nose No Methicillin Resistant Staphylococcus aureus isolated.
07/02/23 11:57 Blood Culture - Preliminary
Blood/Venous No Growth in 24 hours- Final report to follow
Laboratory Tests
07/02/23
11:57
SARS-CoV-2 Antigen Positive A
Care Review
Plan reviewed with: Physician (Hospitalist)
[2023-07-04 12:36] LABS: Glucose - Point of Care 194 mg/dl (70-99)
[2023-07-04] MEDS: VITAMIN C 500 MG PO (13:21)
[2023-07-04] MEDS: NOVOLOG FLEXPEN-LOW RESISTANCE 1 UNITS SC ×2 (14:10→17:32)
--- NOTE | 2023-07-04 14:16 | W.PN.HOSP.TC ---
Addendum entered and electronically signed by Harjit Subramanian MD 07/04/23 14:41:
will stop the Lasix with rising Creat
Original Note:
Today's Communication/Plan
-
IVF
Assessment / Plan
Assessment / Plan
Acute Covid-19
ate ~75% of breakfast, started on IVF supplement
hypothermia
resolved
mild mental retardation
lives in a residential
mentation remains worse than baseline, consistent with Covid induced TME, slightly improved today
chronic ambulatory dysfunction
chronic anemia
8.1-->3 7.6-->07/02 8.6
asthma on chronic Prednisone
CRP 22.00
elevated total Bili
2.7-->3.4-->2.5
P:admit with bear raegger
Molnupivir
ID consult
Call placed to residential, pt's POA/Brother is in [place]. Shahida Butler, at the residential relayed messages between me and the brother. Abdirashid, wants to disregard the Living Will, as pt's POA and wants him to be a Full Code, changed.
Anticipated Discharge: > 48 hours
Subjective/Interval History
-
Date of Service: July 04, 2023
No obvious distress
Objective Data
-
Labs:
Laboratory Results
07/04/23
06:14
WBC 5.2
Hgb 8.3 L
Hct 24.1 L
Plt Count 231
Sodium 132 L
Potassium 4.9
Chloride 100
Carbon Dioxide 23
BUN 36 H
Creatinine 1.8 H
Glucose 126 H
Calcium 8.5
Total Bilirubin 2.5 H
AST 61 H
ALT 29
Alkaline Phosphatase 96
Vital Signs:
Vital Signs
Temp Pulse Resp BP Pulse Ox
98.4 F 73 16 125/58 95
07/04/23 07:00 07/04/23 07:00 07/04/23 07:00 07/04/23 07:00 07/04/23 07:00
I&O
07/03/23 07/04/23 07/05/23
06:59 06:59 07:59
Intake Total 240 / 240 1040 / 1040
Balance 240 / 240 1040 / 1040
Review of Systems
-
History Source: Patient
Constitutional: Denies Fever (hypothermia appears to have resolved)
Respiratory: Reports No Symptoms; Denies Trouble Breathing
Cardiac: Reports No Symptoms; Denies Chest Pain
Abdomen/GI: Reports No Symptoms
Physical Exam
-
General: Well Developed, Well Nourished and No Apparent Distress
HEENT: Normocephalic, Atraumatic and Moist Mucous Membranes
Respiratory: Clear to Auscultation (on limited exam with shallow breaths); Negative Wheezes, Rales or Rhonchi
Cardiac: Regular Rhythm and S1/S2
GI: Soft, Nontender and Nondistended
Musculoskeletal: No Clubbing, No Cyanosis and No Edema
Neuro: Awake, Alert and Other (cognitive impairment)
[2023-07-04 15:00] VITALS: BP 105/58
[2023-07-04 17:25] LABS: Glucose - Point of Care 168 mg/dl (70-99)
[2023-07-04] MEDS: FLOMAX 0.400000000000000022 MG PO (17:32)
[2023-07-04] MEDS: ASPIR LOW (ENTERIC COATED) 81 MG PO (20:22)
[2023-07-04] MEDS: OSCAL CAL 500 500 MG PO (20:22)
[2023-07-04] MEDS: LIPITOR 20 MG PO (20:22)
[2023-07-04] MEDS: VITAMIN D3 (cholecalciferol) 25 MCG PO (20:22)
[2023-07-04 21:51] LABS: Glucose - Point of Care 151 mg/dl (70-99)
[2023-07-04 23:59] VITALS: BP 150/73
[2023-07-05] MEDS: SYNTHROID 100 MCG PO (05:43)
[2023-07-05 07:25] VITALS: BP 149/71
[2023-07-05 08:00] LABS: Glucose - Point of Care 158 mg/dl (70-99)
[2023-07-05] MEDS: MIRALAX 17 GRAMS PO (10:17)
[2023-07-05] MEDS: PROTONIX 40 MG PO (10:18)
[2023-07-05] MEDS: IMDUR (EXTENDED RELEASE) 30 MG PO (10:18)
[2023-07-05] MEDS: PROSCAR 5 MG PO (10:18)
[2023-07-05] MEDS: GLUCOPHAGE 500 MG PO ×2 (10:18→17:25)
[2023-07-05] MEDS: NOVOLOG FLEXPEN-LOW RESISTANCE 1 UNITS SC ×2 (10:18→13:23)
[2023-07-05] MEDS: HEPARIN 5000 UNITS SC ×2 (10:18→22:49)
[2023-07-05] MEDS: DELTASONE 5 MG PO (10:18)
[2023-07-05] MEDS: D5/0.45%NSS with KCL 10 MEQ 1000 IV ×2 (10:27→22:48)
[2023-07-05] MEDS: MOLNUPIRAVIR (EUA) 800 MG PO ×2 (10:28→22:49)
--- NOTE | 2023-07-05 11:09 | W.PN.HOSP.TC ---
Today's Communication/Plan
-
dc IVF
PT/OT
Assessment / Plan
Assessment / Plan
Acute Covid-19
ate ~100% of breakfast, started on IVF supplement, will stop
hypothermia
resolved
mild mental retardation
lives in a snf
mentation has dramatically improved past 24 hrs, consistent with Covid induced TME, resolving
chronic ambulatory dysfunction
chronic anemia
8.1-->3 7.6-->38 8.6-->3 8.3
asthma on chronic Prednisone
CRP 22.00
elevated total Bili
2.7-->3.4-->2.5
P:dc IVF
Molnupivir
ID consult appreciated
PT/OT, CM will need to contact [facility] tomorrow to determine length of time before he can return to facility
Call placed to snf, pt's POA/Brother is in [place]. Shahida Butler, at the snf relayed messages between me and the brother. Abdirashid, wants to disregard the Living Will, as pt's POA and wants him to be a Full Code, changed.
Anticipated Discharge: 24 - 48 hours
Subjective/Interval History
-
Date of Service: July 05, 2023
Looks remarkably better. Sitting up, answering questions
Objective Data
-
Vital Signs:
Vital Signs
Temp Pulse Resp BP Pulse Ox
98.6 F 77 16 149/71 97
07/05/23 07:25 07/05/23 07:25 07/05/23 07:25 07/05/23 07:25 07/05/23 07:25
I&O
07/04/23 07/05/23 07/06/23
05:59 06:59 06:59
Intake Total
Output Total
Balance
Review of Systems
-
History Source: Patient and Coordinated Provider
Constitutional: Denies Fever (hypothermia appears to have resolved)
Respiratory: Reports No Symptoms; Denies Trouble Breathing
Cardiac: Reports No Symptoms; Denies Chest Pain
Abdomen/GI: Reports No Symptoms
Physical Exam
-
General: Well Developed, Well Nourished and No Apparent Distress
HEENT: Normocephalic, Atraumatic and Moist Mucous Membranes
Respiratory: Clear to Auscultation (taking deeper breaths); Negative Wheezes, Rales or Rhonchi
Cardiac: Regular Rhythm and S1/S2
GI: Soft, Nontender and Nondistended
Musculoskeletal: No Clubbing, No Cyanosis and No Edema
Neuro: Awake, Alert and Other (cognitive impairment)
[2023-07-05 12:34] LABS: Glucose - Point of Care 177 mg/dl (70-99)
[2023-07-05] MEDS: VITAMIN C 500 MG PO (13:22)
[2023-07-05 15:11] VITALS: BP 125/67
[2023-07-05] MEDS: FLOMAX 0.400000000000000022 MG PO (17:25)
[2023-07-05 17:28] LABS: Glucose - Point of Care 232 mg/dl (70-99)
[2023-07-05] MEDS: NOVOLOG FLEXPEN-LOW RESISTANCE 2 UNITS SC (17:31)
[2023-07-05 21:02] LABS: Glucose - Point of Care 222 mg/dl (70-99)
[2023-07-05] MEDS: LIPITOR 20 MG PO (22:49)
[2023-07-05] MEDS: OSCAL CAL 500 500 MG PO (22:49)
[2023-07-05] MEDS: VITAMIN D3 (cholecalciferol) 25 MCG PO (22:49)
[2023-07-05] MEDS: ASPIR LOW (ENTERIC COATED) 81 MG PO (22:50)
[2023-07-05 22:54] VITALS: BP 103/71
[2023-07-05] MEDS: TYLENOL 1000 MG PO (23:24)
[2023-07-06] MEDS: SYNTHROID 100 MCG PO (06:28)
[2023-07-06 07:53] LABS: Glucose - Point of Care 125 mg/dl (70-99)
[2023-07-06 07:56] VITALS: BP 144/60
[2023-07-06 08:11] LABS: % Basophils 0.2 % (0-2); % Eosinophils 2.2 % (0-6); % Immature Granulocytes 0.2 % (0-0.5); % Lymphocytes 8.5 % (20.5-51.1); % Monocytes 10.7 % (1.7-9.3); % Neutrophils 78.2 % (42.2-75.2); Absolute Eosinophils 0.1 10^3/uL (0-0.7); Absolute Lymphocytes 0.5 10^3/uL (1.2-3.4); Absolute Monocytes 0.6 10^3/uL (0.1-0.6); Absolute Neutrophils 4.3 10^3/uL (1.4-6.5); Hematocrit 22.9 % (39.0-52.0); Hemoglobin 7.9 g/dL (13.0-18.0); Mean Corp Hgb Conc. 34.5 g/dL (33.0-37.0); Mean Corpuscular Volume 89.8 fL (80.0-94.0); Mean Platelet Volume 9.4 fL (7.4-10.4); Nucleated Red Blood Cells % 0 % (-); Platelet Count 260 10^3/uL (130-400); Red Blood Cell Count 2.55 10^6/uL (4.70-6.10); Red Cell Dist. Width 18.2 % (11.5-14.5); White Blood Cell Count 5.5 10^3/uL (4.8-10.8)
[2023-07-06] MEDS: NOVOLOG FLEXPEN-LOW RESISTANCE SC (08:36)
[2023-07-06 08:58] LABS: ALT (SGPT) 30 U/L (0-50); AST (SGOT) 49 U/L (17-59); Albumin 2.8 g/dl (3.5-5.0); Alkaline Phosphatase 99 U/L (38-126); Blood Urea Nitrogen 30 mg/dl (9-20); Calcium 7.3 mg/dl (8.4-10.2); Carbon Dioxide 21 mmol/L (22-30); Chloride 105 mmol/L (98-107); Estimated Creatinine Clearance 35 ml/min; Glucose 111 mg/dl (70-99); Potassium 4.4 mmol/L (3.5-5.1); Sodium 130 mmol/L (135-145); Total Bilirubin 2.2 mg/dl (0.2-1.3); Total Protein 5.5 g/dl (6.3-8.2); eGFR 44.38
[2023-07-06] MEDS: PROSCAR 5 MG PO (09:53)
[2023-07-06] MEDS: GLUCOPHAGE 500 MG PO ×2 (09:53→17:44)
[2023-07-06] MEDS: PROTONIX 40 MG PO (09:53)
[2023-07-06] MEDS: DELTASONE 5 MG PO (09:53)
[2023-07-06] MEDS: HEPARIN 5000 UNITS SC ×2 (09:54→23:02)
[2023-07-06] MEDS: MIRALAX PO (09:54)
[2023-07-06] MEDS: MOLNUPIRAVIR (EUA) 800 MG PO ×2 (09:54→23:03)
[2023-07-06] MEDS: IMDUR (EXTENDED RELEASE) 30 MG PO (09:54)
[2023-07-06 11:42] LABS: Glucose - Point of Care 214 mg/dl (70-99)
--- NOTE | 2023-07-06 12:27 | CM ---
Spoke with Shahida from [facility], she was updated re probable d/c back tomorrow.
Per Shahida she needs to review clinicals and therapy notes with administration prior to return.
Will fax updated labs, vitals, progress notes and therapy notes to [phone].
Plan: [facility]
report# [phone]

[facility]
[2023-07-06] MEDS: VITAMIN C 500 MG PO (13:15)
[2023-07-06] MEDS: NOVOLOG FLEXPEN-LOW RESISTANCE 2 UNITS SC (13:16)
--- NOTE | 2023-07-06 14:21 | W.PN.HOSP.TC ---
Today's Communication/Plan
-
await timing of dc
Assessment / Plan
Assessment / Plan
Acute Covid-19
ate ~100% of breakfast, stopped IVF supplement,
hypothermia
recurred again, not sure why,will trend for now
mild mental retardation
lives in a [facility]
mentation has dramatically improved, consistent with Covid induced TME, resolving
chronic ambulatory dysfunction
chronic anemia
8.1-->07/01 7.6-->07/02 8.6-->07/03 8.3-->07/05 7.9
pt was to follow up with GI following last dc from hospital, importance of follow up with GI was stressed
asthma on chronic Prednisone
CRP 22.00
elevated total Bili
2.7-->3.4-->2.5-->2.2
P:dc IVF
Molnupivir
ID consult appreciated
As per CM, Shahida at [facility] needs to review chart and clinicals and will make a decision as to timing of dc to Home
Call placed to [facility], pt's POA/Brother is in [place]. Shahida Butler, at the [facility] relayed messages between me and the brother. Abdirashid, wants to disregard the Living Will, as pt's POA and wants him to be a Full Code, changed.
Anticipated Discharge: 24 - 48 hours
Subjective/Interval History
-
Date of Service: July 06, 2023
Appears comfortable, alert. Mental status much improved from admission
Objective Data
-
Labs:
Laboratory Results
07/06/23
07:27
WBC 5.5
Hgb 7.9 L
Hct 22.9 L
Plt Count 260
Sodium 130 L
Potassium 4.4
Chloride 105
Carbon Dioxide 21 L
BUN 30 H
Creatinine 1.6 H
Glucose 111 H
Calcium 7.3 L
Total Bilirubin 2.2 H
AST 49
ALT 30
Alkaline Phosphatase 99
Vital Signs:
Vital Signs
Temp Pulse Resp BP Pulse Ox
99 F 68 18 144/60 97
07/06/23 09:00 07/06/23 07:56 07/06/23 07:56 07/06/23 07:56 07/06/23 07:56
I&O
07/05/23 07/06/23 07/07/23
06:59 06:59 06:59
Intake Total 520 / 520 800 / 800
Output Total 550 / 550
Balance -30 / -30 800 / 800
Review of Systems
-
History Source: Patient and Coordinated Provider
Constitutional: Denies Fever (hypothermia recurred yesterday, appears to have resolved)
Respiratory: Reports No Symptoms; Denies Trouble Breathing
Cardiac: Reports No Symptoms; Denies Chest Pain
Abdomen/GI: Reports No Symptoms; Denies Anorexia (as per nursing, has been eating well)
Physical Exam
-
General: Well Developed, Well Nourished and No Apparent Distress
HEENT: Normocephalic, Atraumatic and Moist Mucous Membranes
Respiratory: Clear to Auscultation (taking deeper breaths); Negative Wheezes, Rales or Rhonchi
Cardiac: Regular Rhythm and S1/S2
GI: Soft, Nontender and Nondistended
Musculoskeletal: No Clubbing, No Cyanosis and No Edema
Neuro: Awake, Alert and Other (cognitive impairment)
[2023-07-06 15:16] VITALS: BP 134/59
--- NOTE | 2023-07-06 15:45 | W.PN.ID1 ---
Date of Service
Date of Service: July 06, 2023
Today's Communication
Continue current course of molnupiravir.
Assessment / Plan
COVID-19 positive
- No respiratory symptoms at present. Vital signs stable.
Generalized weakness
Encephalopathy
- suspect TME
CAD
GERD
Dyslipidemia
Intellectual disability
Anemia
Diverticulosis
Recommendations:
Continue with molnupiravir to complete a 5-day course. (to finish tomorrow)
Monitor mental status.
Follow white count and temperature curve.
Chief Complaint
-: Other (Covid-19)
Subjective / Review of Systems
Review of Systems: No Fever
Vital Signs / Physical Exam
Vital Signs
Vital Signs
Temp Pulse Resp BP Pulse Ox
99 F 68 18 144/60 97
07/06/23 09:00 07/06/23 07:56 07/06/23 07:56 07/06/23 07:56 07/06/23 07:56
Physical Exam
Constitutional: Comfortable and Non-toxic
Pulmonary: Non Labored
Skin: Negative Jaundice
Psychological: Calm
Objective Data
Lab Data
Lab Results
07/06/23 07:27
07/06/23 07:27
Estimated Creat Clear 35 ml/min 07/06/23 07:27
Lactic Acid 1.6 mmol/L (0.7-2.0) 07/02/23 11:12
Total Bilirubin 2.2 mg/dl (0.2-1.3) H 07/06/23 07:27
AST 49 U/L (17-59) 07/06/23 07:27
ALT 30 U/L (0-50) 07/06/23 07:27
Alkaline Phosphatase 99 U/L (38-126) 07/06/23 07:27
C-Reactive Protein 22.00 mg/L (0.0-10.00) H 07/03/23 07:13
Most recent labs reviewed.
Micro Results:
07/02/23 11:57 Blood Culture - Preliminary
Blood/Venous No Growth in 4 days- Final report to follow
07/02/23 11:12 Blood Culture - Preliminary
Blood/Venous No Growth in 4 days- Final report to follow
07/03/23 05:36 MRSA Screen - Final
Nose No Methicillin Resistant Staphylococcus aureus isolated.
Laboratory Tests
07/02/23
11:57
SARS-CoV-2 Antigen Positive A
[2023-07-06 16:45] LABS: Glucose - Point of Care 194 mg/dl (70-99)
[2023-07-06] MEDS: FLOMAX 0.400000000000000022 MG PO (17:44)
[2023-07-06] MEDS: NOVOLOG FLEXPEN-LOW RESISTANCE 1 UNITS SC (17:44)
[2023-07-06 21:22] LABS: Glucose - Point of Care 144 mg/dl (70-99)
[2023-07-06 22:59] VITALS: BP 171/83
[2023-07-06 23:01] VITALS: BP 179/83
[2023-07-06] MEDS: VITAMIN D3 (cholecalciferol) 25 MCG PO (23:02)
[2023-07-06] MEDS: LIPITOR 20 MG PO (23:02)
[2023-07-06] MEDS: ASPIR LOW (ENTERIC COATED) 81 MG PO (23:02)
[2023-07-06] MEDS: OSCAL CAL 500 500 MG PO (23:02)
[2023-07-07] VITALS (7 sets, daily range): BP systolic 83–146; BP diastolic 62–72
[2023-07-07] MEDS: SYNTHROID 100 MCG PO (06:34)
[2023-07-07 09:10] LABS: Glucose - Point of Care 89 mg/dl (70-99)
[2023-07-07] MEDS: NOVOLOG FLEXPEN-LOW RESISTANCE SC (09:10)
[2023-07-07] MEDS: MOLNUPIRAVIR (EUA) 800 MG PO (09:16)
[2023-07-07] MEDS: GLUCOPHAGE 500 MG PO ×2 (09:16→17:04)
[2023-07-07] MEDS: MIRALAX PO (09:16)
[2023-07-07] MEDS: IMDUR (EXTENDED RELEASE) 30 MG PO (09:16)
[2023-07-07] MEDS: DELTASONE 5 MG PO (09:16)
[2023-07-07] MEDS: HEPARIN 5000 UNITS SC ×2 (09:16→20:10)
[2023-07-07] MEDS: PROTONIX 40 MG PO (09:17)
[2023-07-07] MEDS: PROSCAR 5 MG PO (09:17)
--- NOTE | 2023-07-07 11:11 | PN.CDI ---
CDI
- -
CDI:
Physician Documentation Request
Admit Date: 07/02/23 16:51
Dear Doctor Moris,
Patient admitted for covid.
07/04 Chest XRay: 'Suspect mild localized subtle pneumonia in the medial left upper lobe.'
Please indicate in your progress notes if you are in agreement that the above diagnosis is valid for this patient:
____ - Pneumonia is a valid diagnosis (Please include it in your progress notes)
____ - Pneumonia is not a valid diagnosis for this patient
____ - Pneumonia is not yet confirmed but remains a suspected condition
____ - Other
____ - Unable to determine
Use of terms such as suspected, likely, concern for, or probable are acceptable for a diagnosis that is being evaluated, monitored or treated as if it exists and can be coded in the inpatient setting, when documented at the time of discharge.
Thank you,
Federica Jameson RN, BSN
CDI Specialist
Available via [place] text
Please use your independent medical judgment in providing your response.
[2023-07-07] MEDS: VITAMIN C 500 MG PO (12:05)
[2023-07-07] MEDS: NOVOLOG FLEXPEN-LOW RESISTANCE 2 UNITS SC (12:07)
[2023-07-07 12:08] LABS: Glucose - Point of Care 236 mg/dl (70-99)
--- NOTE | 2023-07-07 12:37 | CM ---
CM had multiple calls with [facility] nurse/Shahida [phone]
Clinicals faxed per her [phone]
Concern noted with labs and hgb, requesting new labs to be drawn today
Update to Dr Subramanian
New labs will be ordered- pt will need outpt GI followup
Anticipate dc tomorrow
Plan to follow up with [facility] re: acceptance for readmission on dc
Pt will need to be set up with [facility] for services on dc
If not, pt will likely need [facility] rehab stay
Discharge Disposition- anticipate return to [facility] tomorrow
[facility]
report# [phone]

[facility]
[2023-07-07 13:39] LABS: % Basophils 0.1 % (0-2); % Eosinophils 0.5 % (0-6); % Immature Granulocytes 0.3 % (0-0.5); % Lymphocytes 3.8 % (20.5-51.1); % Monocytes 7.3 % (1.7-9.3); Absolute Lymphocytes 0.3 10^3/uL (1.2-3.4); Absolute Monocytes 0.5 10^3/uL (0.1-0.6); Absolute Neutrophils 6.4 10^3/uL (1.4-6.5); Hematocrit 24.7 % (39.0-52.0); Hemoglobin 8.3 g/dL (13.0-18.0); Mean Corp Hgb Conc. 33.6 g/dL (33.0-37.0); Mean Corpuscular Hgb 30.5 pg (27.0-31.0); Mean Corpuscular Volume 90.8 fL (80.0-94.0); Mean Platelet Volume 9.1 fL (7.4-10.4); Nucleated Red Blood Cells % 0 % (-); Platelet Count 292 10^3/uL (130-400); Red Blood Cell Count 2.72 10^6/uL (4.70-6.10); Red Cell Dist. Width 18.1 % (11.5-14.5); White Blood Cell Count 7.3 10^3/uL (4.8-10.8)
[2023-07-07] MEDS: FLOMAX 0.400000000000000022 MG PO (17:08)
[2023-07-07 17:13] LABS: Glucose - Point of Care 167 mg/dl (70-99)
[2023-07-07] MEDS: NOVOLOG FLEXPEN-LOW RESISTANCE 1 UNITS SC (17:14)
--- NOTE | 2023-07-07 17:17 | W.PN.HOSP.TC ---
Today's Communication/Plan
-
BMP
continue to hold Lasix
Will need follow up with GI once fully recovers from Covid
Assessment / Plan
Assessment / Plan
Acute Covid-19
ate ~100% of breakfast, stopped IVF supplement,
Covid Pneumonitis. Do not believe pt had evidence of bacterial PNA
hypothermia
recurred again, not sure why,will trend for now
mild mental retardation
lives in a detention
mentation has dramatically improved, consistent with Covid induced TME, resolving
chronic ambulatory dysfunction
chronic anemia
8.1-->07/01 7.6-->07/02 8.6-->07/03 8.3-->07/05 7.9-->07/06 8.3
pt was to follow up with GI following last dc from hospital, importance of follow up with GI was stressed
asthma on chronic Prednisone
CRP 22.00
elevated total Bili
2.7-->3.4-->2.5-->2.2
P:dc IVF, recheck BMP in AM. Awaiting clearance from [facility] to discharge
Molnupivir
ID consult appreciated
As per CMShahida at [facility] needs to review chart and clinicals and will make a decision as to timing of dc to Home
Call placed to detention, pt's POA/Brother is in [place]. Shahida Butler, at the detention relayed messages between me and the brother. Abdirashid, wants to disregard the Living Will, as pt's POA and wants him to be a Full Code, changed.
Anticipated Discharge: 24 - 48 hours
Subjective/Interval History
-
Date of Service: July 07, 2023
Appears comfortable
Objective Data
-
Labs:
Laboratory Results
07/07/23
13:30
WBC 7.3
Hgb 8.3 L
Hct 24.7 L
Plt Count 292
Vital Signs:
Vital Signs
Temp Pulse Resp BP Pulse Ox
98.4 F 74 18 136/69 96
07/07/23 15:18 07/07/23 15:18 07/07/23 15:18 07/07/23 15:18 07/07/23 15:18
I&O
07/06/23 07/07/23 07/08/23
06:59 06:59 06:59
Intake Total 520 / 520 1819 / 1819
Output Total 550 / 550 50 / 50
Balance -30 / -30 1769
Review of Systems
-
History Source: Patient and Coordinated Provider
Constitutional: Denies Fever (hypothermia recurred yesterday, appears to have resolved, normal temp past 24 hrs)
Respiratory: Reports No Symptoms; Denies Trouble Breathing
Cardiac: Reports No Symptoms; Denies Chest Pain
Abdomen/GI: Reports No Symptoms; Denies Anorexia (as per nursing, has been eating well)
Physical Exam
-
General: Well Developed, Well Nourished and No Apparent Distress
HEENT: Normocephalic, Atraumatic and Moist Mucous Membranes
Respiratory: Clear to Auscultation (taking deeper breaths); Negative Wheezes, Rales or Rhonchi
Cardiac: Regular Rhythm and S1/S2
GI: Soft, Nontender and Nondistended
Musculoskeletal: No Clubbing, No Cyanosis and No Edema
Neuro: Awake, Alert and Other (cognitive impairment)
[2023-07-07] MEDS: OSCAL CAL 500 500 MG PO (20:10)
[2023-07-07] MEDS: VITAMIN D3 (cholecalciferol) 25 MCG PO (20:10)
[2023-07-07] MEDS: ASPIR LOW (ENTERIC COATED) 81 MG PO (20:10)
[2023-07-07] MEDS: LIPITOR 20 MG PO (20:10)
[2023-07-07 21:35] LABS: Glucose - Point of Care 134 mg/dl (70-99)
[2023-07-08 01:23] VITALS: BP 146/64
[2023-07-08] MEDS: FOSAMAX 70 MG PO (06:21)
[2023-07-08] MEDS: SYNTHROID 100 MCG PO (06:31)
[2023-07-08 07:00] VITALS: BP 129/68
[2023-07-08 07:35] LABS: Glucose - Point of Care 110 mg/dl (70-99)
[2023-07-08] MEDS: NOVOLOG FLEXPEN-LOW RESISTANCE SC ×2 (08:26→13:22)
[2023-07-08] MEDS: IMDUR (EXTENDED RELEASE) 30 MG PO (08:27)
[2023-07-08] MEDS: PROSCAR 5 MG PO (08:27)
[2023-07-08] MEDS: PROTONIX 40 MG PO (08:27)
[2023-07-08] MEDS: GLUCOPHAGE 500 MG PO (08:27)
[2023-07-08] MEDS: DELTASONE 5 MG PO (08:28)
[2023-07-08] MEDS: HEPARIN 5000 UNITS SC (08:28)
[2023-07-08] MEDS: MIRALAX PO (08:29)
[2023-07-08 09:33] LABS: Blood Urea Nitrogen 28 mg/dl (9-20); Calcium 8.5 mg/dl (8.4-10.2); Carbon Dioxide 23 mmol/L (22-30); Chloride 107 mmol/L (98-107); Estimated Creatinine Clearance 57 ml/min; Glucose 106 mg/dl (70-99); Potassium 4.5 mmol/L (3.5-5.1); Sodium 138 mmol/L (135-145); eGFR > 60.00
[2023-07-08 10:54] LABS: Glucose - Point of Care 187 mg/dl (70-99)
[2023-07-08 12:10] VITALS: BP 139/70; PULSE 72; O2SAT 97
[2023-07-08 12:12] VITALS: BP 139/70; PULSE 72; O2SAT 97
--- NOTE | 2023-07-08 12:12 | PN.CDI ---
CDI
- -
CDI:
Physician Documentation Request
Admit Date: 07/02/23 16:51
Dear Doctor Moris,
Patient admitted with covid.
Laboratory Tests
07/02/23 07/03/23 07/04/23 07/06/23
11:12 07:13 06:14 07:27
Sodium 129 L 132 L 132 L 130 L
Based on the above, could you clarify in the progress notes, the appropriate diagnosis, if significant, that supports the above abnormalities and additional evaluation, monitoring and/or treatment rendered:
Hyponatremia
Abnormal lab value insignificant
Other
Use of terms such as suspected, likely, concern for, or probable (associated with a specific diagnosis that is being evaluated, monitored, or treated as if it exists) are acceptable and can be coded in the inpatient setting, when documented at the
time of discharge.
Thank you,
Federica Jameson RN, BSN
CDI Specialist
Available via [place] text
Please use your independent medical judgment in providing your response.
--- NOTE | 2023-07-08 12:28 | CM ---
Patient for d/c to [facility]
Covid test completed per facility request
WC van required, facility will pay costs.
IMM reviewed with Shahida from facility.
Facility address reviewed with Shahida [facility] [address], [place] [address]
[facility]
report# [phone]

[facility]
--- NOTE | 2023-07-08 13:09 | W.PN.HOSP.TC ---
Today's Communication/Plan
-
dc now
Assessment / Plan
Assessment / Plan
Acute Covid-19
ate ~100% of breakfast, stopped IVF supplement,
Hyponatremia
most likely due to pulmonary process from [facility] associated with acute Covid
Covid Pneumonitis. Do not believe pt had evidence of bacterial PNA
hypothermia
recurred again, not sure why,will trend for now
mild mental retardation
lives in a skilled nursing
mentation has dramatically improved, consistent with Covid induced TME, resolving
chronic ambulatory dysfunction
chronic anemia
8.1-->07/01 7.6-->07/02 8.6-->07/03 8.3-->07/05 7.9-->07/06 8.3
pt was to follow up with GI following last dc from hospital, importance of follow up with GI was stressed
asthma on chronic Prednisone
CRP 22.00
elevated total Bili
2.7-->3.4-->2.5-->2.2
P:Pt has been accepted to return to [facility]
Molnupivir completed
ID consult appreciated
Will need post dc follow up with GI regarding anemia
Call placed to skilled nursing, pt's POA/Brother is in [place]. Shahida Butler, at the skilled nursing relayed messages between me and the brother. Abdirashid, wants to disregard the Living Will, as pt's POA and wants him to be a Full Code, changed.
See dictated note
More than 30 minutes spent in discharge including
Final examination of the patient
Summarizing hospital stay
Instructions for continuing care to all relevant caregivers
Preparation of discharge records, prescriptions, and referral forms
Total time spent (in minutes): 45
Anticipated Discharge: Today
Subjective/Interval History
-
Date of Service: July 08, 2023
Awake, alert, looks better today
Objective Data
-
Labs:
Laboratory Results
07/08/23
08:26
Sodium 138 D
Potassium 4.5
Chloride 107
Carbon Dioxide 23
BUN 28 H
Creatinine 1.0
Glucose 106 H
Calcium 8.5
Vital Signs:
Vital Signs
Temp Pulse Resp BP Pulse Ox
97.7 F 69 16 129/68 98
07/08/23 07:00 07/08/23 07:00 07/08/23 07:00 07/08/23 07:00 07/08/23 08:32
I&O
07/07/23 07/08/23 07/09/23
06:59 06:59 06:59
Intake Total 1820 / 1820 660 / 660
Output Total 50 / 50 550 / 550
Balance 1770 / 1770 110 / 110
Review of Systems
-
History Source: Coordinated Provider
Constitutional: Denies Fever (hypothermia recurred yesterday, appears to have resolved, normal temp past 24 hrs)
Respiratory: Reports No Symptoms; Denies Trouble Breathing
Cardiac: Reports No Symptoms; Denies Chest Pain
Abdomen/GI: Reports No Symptoms; Denies Anorexia (as per nursing, has been eating well)
Physical Exam
-
General: Well Developed, Well Nourished and No Apparent Distress
HEENT: Normocephalic, Atraumatic and Moist Mucous Membranes
Respiratory: Clear to Auscultation (taking deeper breaths); Negative Wheezes, Rales or Rhonchi
Cardiac: Regular Rhythm and S1/S2
GI: Soft, Nontender and Nondistended
Musculoskeletal: No Clubbing, No Cyanosis and No Edema
Neuro: Awake, Alert and Other (cognitive impairment)
[2023-07-08 13:13] LABS: COVID-19 Antigen Positive (Negative)
[2023-07-08] MEDS: VITAMIN C 500 MG PO (13:22)
--- NOTE | 2023-07-08 13:46 | W.DS.TRANS ---
DC Summary - [facility]
-
Discharge Instructions:
Discharge Diagnosis/Procedures Covid-19
Diet Regular
Activity With assistance
Driving Restrictions No driving
Bathing Restrictions None
Blood Work CBC, CMP in 1-2 weeks
Other Services VN
Instructions:
Stand-Alone Forms:
Changes to Home Medications: No
Discharge Medications:
DC Medications w/original date entered in [facility]
lansoprazole 30 mg capsule,delayed release (Prevacid) 30 mg PO DAILY Gastrointestinal issue 05/25/08
isosorbide mononitrate 30 mg tablet,extended release 24 hr 30 mg PO DAILY Heart Disease/Condition 06/11/15
alendronate 70 mg tablet 70 mg PO WE@0600 osteoporosis 08/10/20
prednisone 5 mg tablet 5 mg PO DAILY asthma 08/10/20
tamsulosin 0.4 mg capsule 0.4 mg PO QPM Urinary issue 08/10/20
finasteride 5 mg tablet 5 mg PO DAILY Urinary Issue 01/21/23
fluorouracil 5 % topical cream 1 applic topical BIDPRN PRN actinic/solar keratoses 01/21/23
furosemide 40 mg tablet 40 mg PO DAILY Fluid Retention/Swelling 01/21/23
triamcinolone acetonide 0.5 % topical cream 1 applic topical BIDPRN PRN skin conditions 01/21/23
metformin 500 mg tablet 500 mg PO BID@0800,1600 Diabetes 05/25/23
acetaminophen 500 mg tablet (Tylenol Extra Strength) 1,000 mg PO TID PRN pain 06/22/23
albuterol sulfate 2.5 mg/3 mL (0.083 %) solution for nebulization 2.5 mg inhalation R Q4HPRN PRN cough/wheezing 06/22/23
atorvastatin 20 mg tablet 20 mg PO DAILY@1999 High Cholesterol 06/22/23
calcium carbonate 600 mg calcium (1,500 mg) tablet 600 mg PO DAILY@1999 Supplement 06/22/23
ferrous sulfate 325 mg (65 mg iron) tablet (FeroSul) 325 mg PO NOON Supplement 06/22/23
levothyroxine 100 mcg tablet 100 mcg PO DAILY@0700 hypothyroidism 06/22/23
polyethylene glycol 3350 17 gram oral powder packet (Miralax) 17 g PO DAILY Constipation #30 ea 06/25/23
ascorbic acid (vitamin C) 500 mg tablet (Vitamin C) 500 mg PO NOON Supplement 07/02/23
aspirin 81 mg tablet,delayed release 81 mg PO DAILY@1999 Blood Clot Prevention/Tx 07/02/23
cholecalciferol (vitamin D3) 25 mcg (1,000 unit) tablet 25 mcg PO DAILY@1999 Supplement 07/02/23
dextromethorphan-guaifenesin 10 mg-100 mg/5 mL oral syrup 5 ml PO Q6HPRN PRN cough 07/02/23
guaifenesin 600 mg tablet, extended release 12 hr (Mucinex) 600 mg PO BIDPRN PRN cough or congestion 07/02/23
loperamide 2 mg capsule 2 mg PO QID PRN diarrhea 07/02/23
Home Medication Changes
Pending Results: No
== END 2023-07-08 14:44 | disposition home health service (06) | DRG 177 ==
LOC: 4 WEST ACU 16:51
PROVIDERS: ADMITTING PHYSICIAN Internal Medicine; CONSULT PHYSICIAN Internal Medicine Infectious Disease; EMERGENCY PHYSICIAN Emergency Medicine; FAMILY PHYSICIAN Nurse Practitioner
DX: U07.1 COVID-19 (principal); G92.8 Other toxic encephalopathy; E87.1 Hypo-osmolality and hyponatremia; F70 Mild intellectual disabilities; D64.9 Anemia, unspecified; J45.909 Unspecified asthma, uncomplicated; J98.4 Other disorders of lung; Z79.52 Long term (current) use of systemic steroids
CPT/HCPCS: 51701; 71045; 80048; 80053; 81003; 82248; 82962; 83605; 85025; 86140; 86850; 86900; 86901; 87040; 87070; 87811; 93005; 97116; 97162; 97167; 97535; 99285; J3480

== ENCOUNTER → 2023-07-22 13:30 | Outpatient (REF) | payer MEDICARE, SELFPAY | LOC: RAD 13:30 | PROVIDERS: ATTENDING PHYSICIAN Nurse Practitioner | DX: U07.1 COVID-19 (principal) | CPT/HCPCS: 71046 ==

== ENCOUNTER 2023-07-24 11:55 | Inpatient (IN) | payer MEDICARE, SELFPAY ==
[2023-07-24] VITALS (99 sets, daily range): BP systolic 75–140; BP diastolic 39–103; BMI 27.5
--- NOTE | 2023-07-24 09:10 | ED.GENMED ---
History of Present Illness
<Alvin Barber PA-C - Last Filed: 07/24/23 09:38>
General
Chief Complaint: Change in Mental Status
Time Seen by Provider: 07/24/23 09:09
Travel History
Have you had any contact with someone who has COVID-19?: Unable to Answer
Do you have any symptoms of coronavirus? Fever > 100 degrees, chills, cough, shortness of breath, sore throat, loss of taste or smell, muscle aches, or headache?: Unable to Answer
<Harjit Laws DO - Last Filed: 07/24/23 11:03>
General
Source: records and home care specialist
Exam Limitations: clinical condition and altered mental status
Nursing documentation reviewed up to this point in time: agreed with
History of Present Illness
History of Present Illness:
Patient is a 78-year-old male who was found to be hypotensive and hypothermic and his care facility this morning. Patient has a history of adrenal insufficiency and was started on increasing doses of prednisone yesterday by the legal contracts specialist after
he was diagnosed with pneumonia and a UTI. Patient had been started on Cipro. Patient earlier in the month had been diagnosed with COVID and the legal contracts specialist did not feel that the pneumonia that was seen yesterday was related to COVID. Patient
has a history of mental retardation and is in a care facility. Patient's brother is his power of trial attorney. Patient's brother is an elderly. I did speak with the patient's brother and he waved the living well and wanted the patient treated with
antibiotics and all interventions.
Past History
<Alvin Barber PA-C - Last Filed: 07/24/23 09:38>
Past History
ED Past Medical History: CAD, GERD, Hypercholesterolemia and Other (Mild MR, anemia, diverticulosis)
ED Past Surgical History: Cholecystectomy and Other (Gastric ulcer, cataracts)
Social History
Tobacco: Non-smoker
Alcohol: None
Drug: None
Living: assisted living
<Harjit Laws DO - Last Filed: 07/24/23 11:03>
Past History
ED Past Medical History: Asthma and Other (Mild MR, anemia, diverticulosis, adrenal insufficiency)
Review of Systems
<Harjit Laws DO - Last Filed: 07/24/23 11:03>
Review of Systems
Unable to obtain full review of systems at this time due to: non-verbal
All Other Systems: Not applicable
Phy Exam
<Harjit Laws DO - Last Filed: 07/24/23 11:03>
Physical Exam
Physical Exam:
Physical Exam
General: arousable to noxious stimuli, well nourished, well hydrated
HENT: Normocephalic, supple with no lymphadenopathy, no thyromegaly
Eyes: Clear sclera, conjuctiva without injection
Heart: Regular rhythm and rate. No S3, S4. No murmur. No NVD. Distal heart sounds
Lungs: No apparent respiratory distress, no stridor, lung sounds clear and equal bilaterally but no deep inspiration
Abdomen: Soft, nontender, no organomegaly, BS diminished
Neuro: Minimally responsive to noxious stimuli
Skin: Scattered ecchymosis and skin breakdown
Extremities: No edema. Multiple bruises and skin breakdown with darkening of the legs from the knees distally
Course
<Alvin Barber PA-C - Last Filed: 07/24/23 09:38>
Orders/Labs/Results
Orders:
Orders
07/24/23 09:07
Electrocardiogram (*1) Urgent
Reason for Study: Fatigue / Weakness
EKG- Treatment ONCE
07/24/23 09:11
CT Head W/o Iv Contrast Urgent
Comment:
Reason For Exam: mental status change
CR Chest Portable - 1 View Urgent
Comment:
Reason For Exam: sepsis
Reason Study Needs to be Portable: Other
07/24/23 09:23
Lidocaine 2% [Lidocaine Uro-Jet 2%] 1 syringe .ROUTE .STK-MED ONE
07/24/23 09:41
Complete Blood Count/With Diff Urgent
Comprehensive Metabolic Panel Urgent
Lactic Acid Q4H
Comment: CANCEL 2nd LACTIC ACID IF 1st LACTIC ACID IS LESS THAN 2
Manual Differential Urgent
Prothrombin Time Urgent
TSH Reflex To Free T4 Urgent
Urinalysis Reflex To Culture Urgent
Date Specimen was Collected: 07/24/23
Time Specimen was Collected: 09:40
Urine Microscopic Reflex Cult Urgent
Blood Culture Q30M
MORIAMA Source: Blood/Venous
Specimen Description:
Urine Culture Urgent
MORAIMA Source: U
Specimen Description:
Date Specimen was Collected: 07/24/23
Time Specimen was Collected: 09:40
07/24/23 09:56
Blood Culture Q30M
MORAIMA Source: Blood/Venous
Specimen Description:
07/24/23 10:15
Calcium Gluconate 1 gram/100mL [Calcium Gluconate] 1 gram in 100 ml IV ONCE
Dextrose 50%-Water [Dextrose 50% Syringe] 25 grams IV NOW STA
Insulin Human Regular [Novolin R] 10 units IV NOW STA
07/24/23 10:16
Hydrocortisone Sod Succinate [Solu-Cortef] 200 mg IV NOW STA
07/24/23 10:17
0.9% Sodium Chloride 1000 ml [Nss] 2,000 ml IV NOW STA
07/24/23 10:34
NORepinephrine 4 MG/250 ML [Levophed] 4 mg in 250 ml .ROUTE .STK-MED
07/24/23 10:40
Vancomycin [Vancocin] 2,000 mg 0.9% Sodium Chloride 500 ml [Nss] 500 ml IV NOW
07/24/23 10:41
Piperacillin/Tazo 3.375 Gram [Zosyn] 3.375 gram in 50 ml IV NOW
07/24/23 10:45
NORepinephrine 4 MG/250 ML [Levophed] 4 mg in 250 ml IV PER PROTOCOL
Vancomycin [Vancocin] 1,500 mg 0.9% Sodium Chloride [Nss] 20 ml 0.9% Sodium Chloride 250 ml [Nss] 250 ml IV NOW
07/24/23 12:00
Piperacillin/Tazo 4.5 Gram [Zosyn] 4.5 gram in 100 ml IV Q6H
07/24/23 13:15
Lactic Acid Q4H
Comment: CANCEL 2nd LACTIC ACID IF 1st LACTIC ACID IS LESS THAN 2
Abnormal Lab Results
07/24/23
09:41
WBC 20.4 H 10^3/uL
(4.8-10.8)
RBC 2.76 L 10^6/uL
(4.70-6.10)
Hgb 8.5 L g/dL
(13.0-18.0)
Hct 25.4 L %
(39.0-52.0)
RDW 18.6 H %
(11.5-14.5)
Abs Neuts (Manual) 20.1 H 10^3/uL
(1.4-6.5)
Segmented Neutrophils 77 H %
(42-75)
Band Neutrophils 22 H %
(0-3)
Monocytes (Manual) 1 L %
(2-9)
PT 17.6 H Sec
(11.4-14.6)
Sodium 125 L mmol/L
(135-145)
Potassium 6.3 H* mmol/L
(3.5-5.1)
Carbon Dioxide 18 L mmol/L
(22-30)
BUN 53 H mg/dl
(9-20)
Creatinine 1.9 H mg/dL
(0.7-1.3)
Lactic Acid 2.8 H mmol/L
(0.7-2.0)
Calcium 8.3 L mg/dl
(8.4-10.2)
Total Bilirubin 1.6 H mg/dl
(0.2-1.3)
Alkaline Phosphatase 131 H U/L
(38-126)
Total Protein 5.7 L g/dl
(6.3-8.2)
Albumin 3.0 L g/dl
(3.5-5.0)
Ur Occult Blood Reflex 4+ A
(Negative)
Leukocyte Esterase Rfl 2+ A
(Negative)
Urine RBC 3-6 A /HPF
(0-2)
Urine WBC (Reflex) 40-50 A /HPF
(0-5)
Urine Bacteria (Reflex) Moderate A
(Negative)
Urine Albumin (Reflex) 1+ A
(Neg - Trace)
07/24/23 09:41
07/24/23 09:41
Vital Signs
Initial and Last Documented VS:
Initial Vital Signs
Temp Pulse Resp BP Pulse Ox
91.3 F L 76 22 119/56 94
07/24/23 09:12 07/24/23 09:12 07/24/23 09:12 07/24/23 09:12 07/24/23 09:12
Last Documented Vital Signs
Temp Pulse Resp BP Pulse Ox
91.3 F L 76 22 119/56 95
07/24/23 09:12 07/24/23 09:12 07/24/23 09:12 07/24/23 09:12 07/24/23 10:05
<Harjit Laws DO - Last Filed: 07/24/23 11:03>
Orders/Labs/Results
Orders:
Orders
07/24/23 09:07
Electrocardiogram (*1) Urgent
Reason for Study: Fatigue / Weakness
EKG- Treatment ONCE
07/24/23 09:11
CT Head W/o Iv Contrast Urgent
Comment:
Reason For Exam: mental status change
CR Chest Portable - 1 View Urgent
Comment:
Reason For Exam: sepsis
Reason Study Needs to be Portable: Other
07/24/23 09:23
Lidocaine 2% [Lidocaine Uro-Jet 2%] 1 syringe .ROUTE .STK-MED ONE
07/24/23 09:41
Complete Blood Count/With Diff Urgent
Comprehensive Metabolic Panel Urgent
Lactic Acid Q4H
Comment: CANCEL 2nd LACTIC ACID IF 1st LACTIC ACID IS LESS THAN 2
Manual Differential Urgent
Prothrombin Time Urgent
TSH Reflex To Free T4 Urgent
Urinalysis Reflex To Culture Urgent
Date Specimen was Collected: 07/24/23
Time Specimen was Collected: 09:40
Urine Microscopic Reflex Cult Urgent
Blood Culture Q30M
MORAIMA Source: Blood/Venous
Specimen Description:
Urine Culture Urgent
MORAIMA Source: U
Specimen Description:
Date Specimen was Collected: 07/24/23
Time Specimen was Collected: 09:40
07/24/23 09:56
Blood Culture Q30M
MORAIMA Source: Blood/Venous
Specimen Description:
07/24/23 10:15
Calcium Gluconate 1 gram/100mL [Calcium Gluconate] 1 gram in 100 ml IV ONCE
Dextrose 50%-Water [Dextrose 50% Syringe] 25 grams IV NOW STA
Insulin Human Regular [Novolin R] 10 units IV NOW STA
07/24/23 10:16
Hydrocortisone Sod Succinate [Solu-Cortef] 200 mg IV NOW STA
07/24/23 10:17
0.9% Sodium Chloride 1000 ml [Nss] 2,000 ml IV NOW STA
07/24/23 10:34
NORepinephrine 4 MG/250 ML [Levophed] 4 mg in 250 ml .ROUTE .STK-MED
07/24/23 10:40
Vancomycin [Vancocin] 2,000 mg 0.9% Sodium Chloride 500 ml [Nss] 500 ml IV NOW
07/24/23 10:41
Piperacillin/Tazo 3.375 Gram [Zosyn] 3.375 gram in 50 ml IV NOW
07/24/23 10:45
NORepinephrine 4 MG/250 ML [Levophed] 4 mg in 250 ml IV PER PROTOCOL
Vancomycin [Vancocin] 1,500 mg 0.9% Sodium Chloride [Nss] 20 ml 0.9% Sodium Chloride 250 ml [Nss] 250 ml IV NOW
07/24/23 12:00
Piperacillin/Tazo 4.5 Gram [Zosyn] 4.5 gram in 100 ml IV Q6H
07/24/23 13:15
Lactic Acid Q4H
Comment: CANCEL 2nd LACTIC ACID IF 1st LACTIC ACID IS LESS THAN 2
Abnormal Lab Results
07/24/23
09:41
WBC 20.4 H 10^3/uL
(4.8-10.8)
RBC 2.76 L 10^6/uL
(4.70-6.10)
Hgb 8.5 L g/dL
(13.0-18.0)
Hct 25.4 L %
(39.0-52.0)
RDW 18.6 H %
(11.5-14.5)
Abs Neuts (Manual) 20.1 H 10^3/uL
(1.4-6.5)
Segmented Neutrophils 77 H %
(42-75)
Band Neutrophils 22 H %
(0-3)
Monocytes (Manual) 1 L %
(2-9)
PT 17.6 H Sec
(11.4-14.6)
Sodium 125 L mmol/L
(135-145)
Potassium 6.3 H* mmol/L
(3.5-5.1)
Carbon Dioxide 18 L mmol/L
(22-30)
BUN 53 H mg/dl
(9-20)
Creatinine 1.9 H mg/dL
(0.7-1.3)
Lactic Acid 2.8 H mmol/L
(0.7-2.0)
Calcium 8.3 L mg/dl
(8.4-10.2)
Total Bilirubin 1.6 H mg/dl
(0.2-1.3)
Alkaline Phosphatase 131 H U/L
(38-126)
Total Protein 5.7 L g/dl
(6.3-8.2)
Albumin 3.0 L g/dl
(3.5-5.0)
Ur Occult Blood Reflex 4+ A
(Negative)
Leukocyte Esterase Rfl 2+ A
(Negative)
Urine RBC 3-6 A /HPF
(0-2)
Urine WBC (Reflex) 40-50 A /HPF
(0-5)
Urine Bacteria (Reflex) Moderate A
(Negative)
Urine Albumin (Reflex) 1+ A
(Neg - Trace)
07/24/23 09:41
07/24/23 09:41
Vital Signs
Initial and Last Documented VS:
Initial Vital Signs
Temp Pulse Resp BP Pulse Ox
91.3 F L 76 22 119/56 94
07/24/23 09:12 07/24/23 09:12 07/24/23 09:12 07/24/23 09:12 07/24/23 09:12
Last Documented Vital Signs
Temp Pulse Resp BP Pulse Ox
91.3 F L 76 22 119/56 95
07/24/23 09:12 07/24/23 09:12 07/24/23 09:12 07/24/23 09:12 07/24/23 10:05
<Harjit Laws DO - Last Filed: 07/24/23 11:03>
*Radiology
Radiology exam reviewed: radiology read reviewed (Questionable atypical pneumonia)
*Pulse Oximetry
Patient hypoxic: no
Comment: However after period of asystole pulse ox was in the 50s
*EKG
Interpreted by ED Provider?: Yes
EKG Intrepretation Date: 07/24/23
EKG Intrepretation Time: 10:58
Interpretation: abnormal
Comparison EKG: no changes
Heart Rate: 65
Rate: normal
Rhythm: sinus
Ernul: left axis deviation
Interval: normal interval
QRS Pattern: right bundle branch block
Ischemia: non-specific ST changes
*Pantograph Machine Set Up Operator Interpretation
Rate: normal
Interpretation: normal
Heart Rate: 65
Rhythm: sinus
*Critical Care Note
Total Time (30-74mins, 75-104mins- exclusive of procedures): 50 minutes
<Harjit Laws DO - Last Filed: 07/24/23 11:03>
Update Note
Update Note:
Patient had an episode about 30 seconds or more of becoming asystolic and then began to beat again and went back to his baseline that he presented with. How long talk with the patient's brother who wanted to wait if the advance directive at this
time but will consider it in the future.
ED Attending Note
<Alvin Barber PA-C - Last Filed: 07/24/23 09:38>
-
Portions of this chart may have been created with voice recognition software.� Occasional wrong word or��sound alike� substitutions may have occurred due to the inherent limitations of voice recognition software.
Discharge Plan
Departure
Patient Disposition: Admit
Date of Disposition: 07/24/23
Time of Disposition: 10:58
Admit to: ICU
Admit to doctor: Hospitalist
Presentation/result/management discussed w/ accepting MD/DO: Hospitalist
Patient with high blood pressure during this ER visit?: No
Condition: Critical
Covid-19: Not Applicable
Discharge Problem:
Sepsis associated hypotension, Adrenal insufficiency, Hypothermia, Cardiac arrest
Prescriptions:
No Action
lansoprazole [Prevacid] 30 MG capsule,delayed release(DR/EC)
30 mg PO DAILY
isosorbide mononitrate 30 MG tablet extended release 24 hr
30 mg PO DAILY
alendronate 70 MG tablet
70 mg PO WE@0600
prednisone 5 MG tablet
5 mg PO .SEE BELOW
Patient Comments:
07/24/2023, hold while taking 10 mg tablet daily for 5 days.
tamsulosin 0.4 MG capsule
0.4 mg PO DAILY@1999
furosemide 40 mg Tablet
40 mg PO DAILY
triamcinolone acetonide 0.5 % Cream
1 applic TOPICAL BIDPRN PRN (Reason: skin conditions)
fluorouracil 5 % Cream
1 applic TOPICAL BIDPRN PRN (Reason: actinic/solar keratoses)
finasteride 5 mg Tablet
5 mg PO DAILY
metformin 500 mg Tablet
500 mg PO BID@0800,1600
albuterol sulfate 2.5 mg /3 mL (0.083 %) Solution For Nebulization
2.5 mg INHALATION R Q4HPRN PRN (Reason: cough/wheezing )
levothyroxine 100 mcg tablet
100 mcg PO DAILY@0700
ferrous sulfate [FeroSul] 325 mg (65 mg iron) tablet
325 mg PO NOON
atorvastatin 20 mg tablet
20 mg PO DAILY@1999
calcium carbonate 600 mg calcium (1,500 mg) Tablet
600 mg PO DAILY@1999
acetaminophen [Tylenol Extra Strength] 500 MG tablet
1,000 mg PO TIDPRN MDD max 6 tablets/24 hrs PRN (Reason: mild pain)
polyethylene glycol 3350 [Miralax] 17 gram powder in packet
17 g PO DAILY Qty: 30 0RF
loperamide 2 mg Capsule
2 mg PO QIDPRN PRN (Reason: diarrhea)
dextromethorphan-guaifenesin 10-100 mg/5 mL Syrup
5 ml PO Q6HPRN PRN (Reason: cough)
guaifenesin [Mucinex] 600 mg Tablet Extended Release 12hr
600 mg PO BIDPRN PRN (Reason: cough or congestion)
aspirin 81 mg tablet,delayed release (DR/EC)
81 mg PO DAILY@1999
ascorbic acid (vitamin C) [Vitamin C] 500 mg tablet
500 mg PO NOON
cholecalciferol (vitamin D3) 25 mcg (1,000 unit) Tablet
25 mcg PO DAILY@1999
prednisone 10 mg Tablet
10 mg PO .SEE BELOW
Rx Instructions:
07/24/2023, start date: 07/24/2023 x 5 days.
ciprofloxacin HCl 500 mg Tablet
500 mg PO Q12H@0800,1999
Rx Instructions:
07/24/2023, start date: 07/23/2023 x 7 days.
Referrals:
Varghese Fraire MD [Family Provider] -
Interventions
Interventions:
*ED COVID-19 Vaccine History Last Done: 07/24/23 10:03
ED- Pulmonary Assessment Last Done: 07/24/23 10:05
ED- Neurological Assessment Last Done: 07/24/23 10:05
ED- Cardiac Assessment Last Done: 07/24/23 10:04
ED Swallowing Screen Last Done: 07/24/23 10:04
Discharge Date and Time
Print Language: KISWAHILI
[2023-07-24 09:55] LABS: Hematocrit 25.4 % (39.0-52.0); Hemoglobin 8.5 g/dL (13.0-18.0); Mean Corp Hgb Conc. 33.5 g/dL (33.0-37.0); Mean Corpuscular Hgb 30.8 pg (27.0-31.0); Mean Platelet Volume 9.4 fL (7.4-10.4); Platelet Count 159 10^3/uL (130-400); Red Blood Cell Count 2.76 10^6/uL (4.70-6.10); Red Cell Dist. Width 18.6 % (11.5-14.5); Urine Albumin 1+ (Neg - Trace); Urine Bilirubin Negative (Negative); Urine Character Slightly Cloudy (Clear); Urine Color Yellow; Urine Glucose Negative (Negative); Urine Ketone Negative (Negative); Urine Leukocyte 2+ (Negative); Urine Nitrite Negative (Negative); Urine Occult Blood 4+ (Negative); Urine Urobilinogen Negative (Neg - 1+); White Blood Cell Count 20.4 10^3/uL (4.8-10.8)
[2023-07-24 10:04] LABS: INR 1.47; PT 17.6 Sec (11.4-14.6)
[2023-07-24 10:07] LABS: Lactic Acid 2.8 mmol/L (0.7-2.0)
[2023-07-24 10:11] LABS: ALT (SGPT) 30 U/L (0-50); AST (SGOT) 38 U/L (17-59); Alkaline Phosphatase 131 U/L (38-126); Blood Urea Nitrogen 53 mg/dl (9-20); Calcium 8.3 mg/dl (8.4-10.2); Carbon Dioxide 18 mmol/L (22-30); Chloride 100 mmol/L (98-107); Glucose 83 mg/dl (70-99); Potassium 6.3 mmol/L (3.5-5.1); Sodium 125 mmol/L (135-145); Total Bilirubin 1.6 mg/dl (0.2-1.3); Total Protein 5.7 g/dl (6.3-8.2); eGFR 36.11
[2023-07-24 10:23] LABS: Urine Bacteria Moderate (Negative)
[2023-07-24 10:24] LABS: Urine White Cell 40-50 /HPF (0-5)
[2023-07-24 10:27] LABS: Absolute Neutrophils -Man Diff 20.1 10^3/uL (1.4-6.5); Band Neutrophils 22 % (0-3); Monocytes 1 % (2-9); Segmented Neutrophils 77 % (42-75)
[2023-07-24 10:28] LABS: Total Cells Counted 100
[2023-07-24] MEDS: NOVOLIN R 10 UNITS IV ×2 (10:37→23:02)
[2023-07-24 10:38] LABS: TSH Reflex To Free T4 2.05 uIU/ml (0.47-4.68)
[2023-07-24] MEDS: DEXTROSE 50% SYRINGE 25 GRAMS IV ×3 (10:42→23:11)
[2023-07-24] MEDS: NSS 2000 ML IV (10:42)
[2023-07-24] MEDS: SOLU-CORTEF 200 MG IV (10:42)
[2023-07-24] MEDS: CALCIUM GLUCONATE 100 IV (10:42)
[2023-07-24] MEDS: LEVOPHED 250 IV ×2 (10:43→23:46)
[2023-07-24] MEDS: VANCOCIN 540 MG IV (11:00)
--- NOTE | 2023-07-24 11:28 | HPS.HSE ---
Family Physician
-
Family Physician: Varghese Fraire
Chief Complaint
-
AMS
History of Present Illness
Patient 78-year-old male with history of intellectual disability, CAD, hyperlipidemia, adrenal insufficiency, recent COVID-19, SIADH, presented to the hospital altered mental status hypotension and hypothermia. Most of the information gathered from
medical records, ER staff, and collateral since patient unable to give any accurate meaningful information since patient is very lethargic. He was sent over for mental status changes and he was found to be hypothermic. He was recently admitted on
07/01 for weakness hypotensive and hypothermic and found to have COVID-19 for which he finished a course of molnupiravir for 5 days and seen by hospitalist and infectious disease during the hospital stay. He was discharged on 07/07 and at the time of
discharge it was felt to be back to baseline mental status and was doing clinically well. Prior to that he had a hospitalization on 06/22 and was discharged on with chest pain and at that time he was seen by hospitalist and cardiology. Also
hospitalized on 05/25 until 06/01 and multiple other hospitalizations prior to that. In the ER, he was noted to have lactic acidosis over 2.8 with a temperature of 91 Fahrenheit severely hypotensive requiring pressors, requiring Abbie hugger. He was
also hyperkalemic and given calcium and insulin. IV fluids and IV antibiotics given. ED discussed with brother who is the power of criminal defense attorney and who is in [place] and despite advanced directives, his brother wanted to leave this at this time and
continue with full supportive and resuscitative measures. Blood pressure initially 77/52, tachypnea with respiratory rate 29 hypothermic temperature 91.3 �F, creatinine 1.9, sodium 125, potassium 6.3, lactate 2.8. Chest x-ray with hazy opacities
within the mid lung zone on each side. Urinalysis with 40-50 WBC, moderate urine bacteria, 2+ leukocyte esterase. He was referred to hospitalist service for further evaluation.
Medical History
Past Medical History
Past Medical History: Reports Other (Hypertension, hyperlipidemia, CAD, bifascicular block, intellectual disability, adrenal insufficiency, DVT, GERD, asthma, hypothyroidism, BPH, diverticulosis, anemia, mitral regurgitation.)
Past Surgical History: Reports Other (Cholecystectomy, cataract surgery, gastric surgery.)
Social History
Unable to obtain full social history at this time due to: Patient Non-verbal
Tobacco: Non-smoker
Alcohol: None
Drug: None
Family History
Family History: Not pertinent
Allergies / Home Medications
Allergies reflects when Allergies were last updated in [employer].
Home Medications with original date entered in [employer]
Allergy/Medication List:
Allergies
Allergy/AdvReac Type Severity Reaction Status Date / Time
No Known Allergies Allergy Verified 07/02/23 11:26
Home Medications
lansoprazole 30 mg capsule,delayed release (Prevacid) 30 mg PO DAILY Gastrointestinal issue 05/25/08
isosorbide mononitrate 30 mg tablet,extended release 24 hr 30 mg PO DAILY Heart Disease/Condition 06/11/15
alendronate 70 mg tablet 70 mg PO WE@0600 osteoporosis 08/10/20
prednisone 5 mg tablet 5 mg PO .SEE BELOW asthma 08/10/20
tamsulosin 0.4 mg capsule 0.4 mg PO DAILY@1999 Urinary issue 08/10/20
finasteride 5 mg tablet 5 mg PO DAILY Urinary Issue 01/21/23
fluorouracil 5 % topical cream 1 applic topical BIDPRN PRN actinic/solar keratoses 01/21/23
furosemide 40 mg tablet 40 mg PO DAILY Fluid Retention/Swelling 01/21/23
triamcinolone acetonide 0.5 % topical cream 1 applic topical BIDPRN PRN skin conditions 01/21/23
metformin 500 mg tablet 500 mg PO BID@0800,1600 Diabetes 05/25/23
acetaminophen 500 mg tablet (Tylenol Extra Strength) 1,000 mg PO TIDPRN PRN mild pain 06/22/23
albuterol sulfate 2.5 mg/3 mL (0.083 %) solution for nebulization 2.5 mg inhalation R Q4HPRN PRN cough/wheezing 06/22/23
atorvastatin 20 mg tablet 20 mg PO DAILY@1999 High Cholesterol 06/22/23
calcium carbonate 600 mg PO DAILY@1999 Supplement 06/22/23
ferrous sulfate 325 mg (65 mg iron) tablet (FeroSul) 325 mg PO NOON Supplement 06/22/23
levothyroxine 100 mcg tablet 100 mcg PO DAILY@0700 hypothyroidism 06/22/23
polyethylene glycol 3350 17 gram oral powder packet (Miralax) 17 g PO DAILY Constipation #30 ea 06/25/23
ascorbic acid (vitamin C) 500 mg tablet (Vitamin C) 500 mg PO NOON Supplement 07/02/23
aspirin 81 mg tablet,delayed release 81 mg PO DAILY@1999 Blood Clot Prevention/Tx 07/02/23
cholecalciferol (vitamin D3) 25 mcg (1,000 unit) tablet 25 mcg PO DAILY@1999 Supplement 07/02/23
dextromethorphan-guaifenesin 10 mg-100 mg/5 mL oral syrup 5 ml PO Q6HPRN PRN cough 07/02/23
guaifenesin 600 mg tablet, extended release 12 hr (Mucinex) 600 mg PO BIDPRN PRN cough or congestion 07/02/23
loperamide 2 mg capsule 2 mg PO QIDPRN PRN diarrhea 07/02/23
ciprofloxacin HCl 500 mg tablet 500 mg PO Q12H@799,199907/24/23
prednisone 10 mg tablet 10 mg PO .SEE BELOW 07/24/23
Review of Systems
-
Unable to obtain full review of systems at this time due to: Acuity
Physical Exam
Vital Signs
Vital Signs
Temp Pulse Resp BP Pulse Ox
91.3 F L 76 22 119/56 95
07/24/23 09:12 07/24/23 09:12 07/24/23 09:12 07/24/23 09:12 07/24/23 10:05
Physical exam:
General: Acutely ill
HEENT: Normocephalic, Atraumatic and Moist Mucous Membranes
Respiratory: Coarse rhonchi in the right base; Negative Wheezes, Rales
Cardiac: Regular Rhythm and S1/S2
GI: Soft, Nontender and Nondistended
Musculoskeletal: No Clubbing, No Cyanosis and presence of bilateral edema
Neuro: Lethargic, moves spontaneously all 4 extremity
Physical Exam
General: Other
Laboratory Results
-
07/24/23 09:41
Laboratory Results
PT 17.6 Sec (11.4-14.6) H 07/24/23 09:41
INR 1.47 07/24/23 09:41
Lactic Acid 2.8 mmol/L (0.7-2.0) H 07/24/23 09:41
Total Bilirubin 1.6 mg/dl (0.2-1.3) H 07/24/23 09:41
AST 38 U/L (17-59) 07/24/23 09:41
ALT 30 U/L (0-50) 07/24/23 09:41
Alkaline Phosphatase 131 U/L (38-126) H 07/24/23 09:41
Impression/Plan
-
IMPRESSION:
Patient 78-year-old male with multiple comorbidities presented to the hospital with altered mental status, hypotension, hypothermia, brief episode of asystole. Patient is critically ill with very high risk of morbidity and mortality and needs to be
admitted to the intensive care unit.
Shortly after admission patient underwent cardiac arrest with asystole in ICU. ROSC obtained. I participated in his code. His respiratory status was tenuous at best and with mental status changes decision was to be intubated by anesthesia and
currently he is on mechanical ventilation. His asystolic event likely due to a prolonged cardiac pause therefore EPS cardiology considering forms of pacing. He is in sinus rhythm but he has underlying bifascicular block. He is also hypotensive on
pressors. Discussed with RN, pulmonary bottle blower, and cardiology at bedside. Prognosis guarded.
Impression:
Septic shock, aspiration pneumonia versus UTI
Cardiorespiratory arrest with asystole
Acute respiratory failure
Acute kidney injury
Adrenal insufficiency crisis
Severe hyponatremia
Hyperkalemia
Metabolic acidosis with lactic acidosis
Conditions present prior to admission:
Hypertension
Hyperlipidemia
CAD
Intellectual disability
Adrenal insufficiency
Bifascicular block
Valvulopathy
PLAN:
ICU admission
Aggressive IV fluid
Hydrocortisone 200 mg IV x 1 and then will continue with 100 mg every 8 hours (electrolyte suggestive of adrenal insufficiency playing significant role along with hypothermia)
Can check random cortisol level but unfortunately he was already given hydrocortisone so that can skew the results.
Broad-spectrum IV antibiotics, Zosyn and vancomycin
Follow-up cultures
Cardiology consulted and discussed with cardiology in person and plan to do a temporary wire for temporary pacer today
Animal Pathologist/pulmonary consult-discussed in person today
Monitor electrolytes closely
Heparin subcu for DVT prophylaxis
CODE STATUS full code
Total Critical Care Time 65 minutes. I was immediately available to the patient and staff. I personally examined, reviewed labs, diagnostic images/reports, interpretations, treatment plans, discussed patient care with other providers and family
or caregivers (if patient is unable to make decisions), entered orders as appropriate and documented the medical record.
[2023-07-24] MEDS: NSS 1000 IV ×2 (11:50→15:15)
[2023-07-24 11:56] LABS: Normal RBC Morphology Yes; Platelets Checked Yes
[2023-07-24 12:26] LABS: Blood Urea Nitrogen 51 mg/dl (9-20); Calcium 7.6 mg/dl (8.4-10.2); Carbon Dioxide 15 mmol/L (22-30); Chloride 105 mmol/L (98-107); Glucose 69 mg/dl (70-99); Potassium 5.6 mmol/L (3.5-5.1); Sodium 126 mmol/L (135-145); eGFR 44.38
[2023-07-24] MEDS: ZOSYN 50 IV ×3 (12:52→23:12)
--- NOTE | 2023-07-24 13:06 | PTCARENOTE ---
Pt admitted to ICU bed 3368 from ED. Received with NSS bolus, Vanco and Levophed at 4 mcg/min infucing. Levophed weaned off for MAP of 82. Noted low glucose on BMP. Accucheck 43. MD notified. D50 given. Will start D5 per order. Temp 93.6.
Rectal probe and warming blanket applied.
Pt minimally responsive. Sinus rhythm to sinus toño with frquent PVCs. Trace general edema. Received on 6L NC. Weaned to 3L
[2023-07-24 13:07] LABS: Glucose - Point of Care 43 mg/dl (70-99)
[2023-07-24 13:33] LABS: Glucose - Point of Care 91 mg/dl (70-99)
--- NOTE | 2023-07-24 13:34 | W.PN.ANESINT ---
Anesthesia Intubation Note
- Intubation Note
Intubation Note:
Diagnosis: code 99
Blade: glidescope 4
Tube Size: 8.0
Depth: 24 cm at teeth
Side Taped: left
Drugs Used: propofol 80 mg, phenylephrine 200 mcg
Grade View: 1
EtCO2 Present: yes
Atraumatic: yes
Attempts: 1
Insertion Start and Stop Time: 5657-9521
SaO2 Pre: 93
SaO2 Post: 96
Glidescope Used: yes
Other Airway Adjustments: preoxygenated
Pre-Oxygenated: yes
Portable Chest X-Ray: ordered
RSI: yes
Suctioned: yes
Bilateral Breath Sounds Confirmed: yes
Vent Settings:
Settings per ___Attending Physician
code 99 called, per icu attending patient had an episode of asystole but at this time was sinus tach with frequent pvcs, on 4lnc sats 93%, agonal breathing. per icu attending, patient's family desires full code and intubation status, pmh and labs
verified. monitored throughout, vss, placement confirmed via etco2 color change, continuous capnography, bilateral breath sounds, cxr pending.
--- NOTE | 2023-07-24 13:43 | CON.CAR ---
Addendum entered and electronically signed by Francisco Jones MD 07/24/23 16:15:
78 yo male with PMH of bifascicular block admitted with septic shock on pressors. Source: urine and possibly PNA. We are consulted due to bradycardic arrest. 30 sec asystole. Patient is intubated. WBC is 20.
Discussed with EP and interventional cardiology. Plan for temporary pacing wire. Will decide on PPM based on clinical course and recovery from septic shock.
Original Note:
Consultation
Consultation Request
Date/Time Consultation Requested: 07/24/23 1330
Date/Time Consultation Performed: 07/24/23 1330
Requesting Provider: Dr. Mckeon
Performing Provider: Lizzy SKELTON for
Reason for Consultation: Asystole
Medical History
-
Chief Complaint: hypotension, hypothermia
History of Present Illness:
78 y/o male with CAD (medically managed), bifascicular block, intellectual disability (living in [facility]), dyslipidemia, adrenal insufficiency on prednisone, and LE edema who is here for evaluation of hypotension and hypothermia. He was recently
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 Discharged about two weeks ago. More, recently, he was started on ABX for suspected PNA and UTI. In ER, he was seen to have asystole, which resolved. In the ICU, a code was called with asystole
again. He is intubated and on pressors for BP support. His history was obtained from the chart since patient is intubated/sedated. Labs show leukocytosis, hyperkalemia, hyponatremia, VERNA.
Past Medical History
Past Medical History: Arrhythmias, CAD, Hypercholesterolemia and Other (as above)
Social History
Living: Other (usp)
Family History
Family History: Reviewed & Not Pertinent
Allergies / Home Medications
Allergy/AdvReac Type Severity Reaction Status Date / Time
No Known Allergies Allergy Verified 07/02/23 11:26
�Medication �Instructions �Recorded �Confirmed �Type
lansoprazole 30 mg capsule,delayed 30 mg PO DAILY Gastrointestinal 05/25/08 07/24/23 History
release (Prevacid) issue
isosorbide mononitrate 30 mg 30 mg PO DAILY Heart 06/11/15 07/24/23 History
tablet,extended release 24 hr Disease/Condition
alendronate 70 mg tablet 70 mg PO WE@0600 osteoporosis 08/10/20 07/24/23 History
prednisone 5 mg tablet 5 mg PO .SEE BELOW asthma 08/10/20 07/24/23 History
tamsulosin 0.4 mg capsule 0.4 mg PO DAILY@1999 Urinary issue 08/10/20 07/24/23 History
finasteride 5 mg tablet 5 mg PO DAILY Urinary Issue 01/21/23 07/24/23 History
fluorouracil 5 % topical cream 1 applic topical BIDPRN PRN 01/21/23 07/24/23 History
actinic/solar keratoses
furosemide 40 mg tablet 40 mg PO DAILY Fluid 01/21/23 07/24/23 History
Retention/Swelling
triamcinolone acetonide 0.5 % 1 applic topical BIDPRN PRN skin 01/21/23 07/24/23 History
topical cream conditions
metformin 500 mg tablet 500 mg PO BID@0800,1600 Diabetes 05/25/23 07/24/23 History
acetaminophen 500 mg tablet 1,000 mg PO TIDPRN PRN mild pain 06/22/23 07/24/23 History
(Tylenol Extra Strength)
albuterol sulfate 2.5 mg/3 mL 2.5 mg inhalation R Q4HPRN PRN 06/22/23 07/24/23 History
(0.083 %) solution for nebulization cough/wheezing
atorvastatin 20 mg tablet 20 mg PO DAILY@1999 High 06/22/23 07/24/23 History
Cholesterol
calcium carbonate 600 mg PO DAILY@1999 Supplement 06/22/23 07/24/23 History
ferrous sulfate 325 mg (65 mg 325 mg PO NOON Supplement 06/22/23 07/24/23 History
iron) tablet (FeroSul)
levothyroxine 100 mcg tablet 100 mcg PO DAILY@0700 06/22/23 07/24/23 History
hypothyroidism
polyethylene glycol 3350 17 gram 17 g PO DAILY Constipation #30 ea 06/25/23 07/24/23 Rx
oral powder packet (Miralax)
ascorbic acid (vitamin C) 500 mg 500 mg PO NOON Supplement 07/02/23 07/24/23 History
tablet (Vitamin C)
aspirin 81 mg tablet,delayed 81 mg PO DAILY@1999 Blood Clot 07/02/23 07/24/23 History
release Prevention/Tx
cholecalciferol (vitamin D3) 25 25 mcg PO DAILY@1999 Supplement 07/02/23 07/24/23 History
mcg (1,000 unit) tablet
dextromethorphan-guaifenesin 10 5 ml PO Q6HPRN PRN cough 07/02/23 07/24/23 History
mg-100 mg/5 mL oral syrup
guaifenesin 600 mg tablet, 600 mg PO BIDPRN PRN cough or 07/02/23 07/24/23 History
extended release 12 hr (Mucinex) congestion
loperamide 2 mg capsule 2 mg PO QIDPRN PRN diarrhea 07/02/23 07/24/23 History
ciprofloxacin HCl 500 mg tablet 500 mg PO Q12H@0800,199907/24/23 07/24/23 History
prednisone 10 mg tablet 10 mg PO .SEE BELOW 07/24/23 07/24/23 History
Review of Systems
-
History Source: Other (chart)
Constitutional: Other (hypotension, hypothermia)
Physical Exam
Vital Signs
Temp Pulse Resp BP Pulse Ox
93.6 F L 73 15 129/54 95
07/24/23 13:06 07/24/23 12:15 07/24/23 12:15 07/24/23 12:10 07/24/23 10:05
Lab Results
07/24/23 09:41
Physical Exam
General: Well Developed, Well Nourished and No Apparent Distress
Respiratory: Other (intubated)
Cardiac: Regular Rhythm
Neuro: Sedated
Psych: Other (sedated)
Impression / Plan
-
Septic Shock:
-recently started treatment for UTI/PNA per chart, blood/urine Cx pending
-s/p IVF and requiring Levophed for pressor support- this requires intensive monitoring
-on ABX
Asystole:
-patient to get temp wire now in cardiac cath lab radiology technologist
-known bifascicular block- follow tele as he is treated for acute illness
VERNA, hyperkalemia, hyponatremia:
-improving with fluids
-follow closely
CAD:
-on ASA, statin
Data Reviewed
-
EKG: Tracing Personally Visualized and interpreted (SR with RBBB)
Radiology: Report Reviewed by me (CXR: Hazy opacities within the midlung zone on each side, suggestive of atypical infection or subsegmental atelectasis. 2. No large pleural effusion or pneumothorax on either side.)
Medical Tests (Nuc Med, Echo etc): Report Reviewed by me (echo 06/23/23: LV ejection fraction is 55-60% by volumetric assessment. Normal left ventricular size and systolic function. Mild mitral regurgitation. Mild tricuspid regurgitation.)
Labs: Labs Reviewed by me
--- NOTE | 2023-07-24 13:46 | PTCARENOTE ---
Pt went into asystole while this RN at beside. CPR started immediately and code called. (see code sheet).
Intubated after ROSC. Transferred to lab tester.
--- NOTE | 2023-07-24 13:53 | CM ---
CM following re: discharge planning.
Reviewed pt's chart, met with pt.
Pt is a 78 year old male, admitted with primary dx of Acute respiratory failure. Currently intubated.
Patient from [facility], [address], [place] [address]. José Miguel Flores, [employer] );
Pt resides in their 1 story facility with 3 LISET or ramp access, and has a shared bedroom. pt has been assisted with ADLs such as showering, and ambulates with his SPC. The patient has poor mobility at baseline and a RW or w/c is used for long
distances. He is able to feed himself. The patient's brother Abdirashid Alcaraz is his POA and he resides in [place] - ph [phone]. Pt ambulates with a cane, has a w/c and glucometer, current with [facility] for SN/PT/OT. No SNF history.
PCP - COSTA Robert
Pharmacy - [facility] [address], [place]
D/C plan: uncertain at this time and will depend on pt's progress.
CM will follow with discharge plan updates as hospitalization progresses
--- NOTE | 2023-07-24 14:12 | W.PN.UPDATE ---
Update Note
Progress Note Update
Code Documentation:
I was called to the patient's room due to cardiac arrest. By the time I arrived to the room ROSC was already obtained. Apparently patient had a asystolic event likely due to a long cardiac pause. Cardiology came to bedside and plans to take
patient to [facility] for temporary wire placement. Considering patient remained agonal respirations with reduced mental status, decision made to intubate (by anesthesia). Continue mechanical ventilation with light sedation and plan to do SAT/SBT
tomorrow morning. Keep SpO2 >90-94% and MAP>65. Pt remains full code.
--- NOTE | 2023-07-24 14:29 | CON.INTV ---
Consultation
Consultation Request
Date/Time Consultation Requested: 07/24/2023
Date/Time Consultation Performed: 07/24/2023
Medical History
-
Chief Complaint: Hypothermia, hypotension
History of Present Illness:
78-year-old male , tested positive for COVID 07/02/2023 was found to be hypothermic and hypotensive in his senior care and was brought to the ER by EMS. Patient was seen by his cupola mechanic yesterday after he was diagnosed with pneumonia and UTI,
started on prednisolone, ciprofloxacin. Patient has multiple hospital admissions earlier this year for hypotension and frequent falls and COVID. In the ER patient had an episode of asystole for 30 seconds and was back to his baseline. Patient was
also hypotensive requiring 3L IV fluids and norepinephrine and he was stress dosed with hydrocortisone. He also had some urinary retention, straight cath'ed with around 850 mL urine output. He was hyperkalemic, started on calcium gluconate,
dextrose, insulin and transferred to ICU for further management. Patient had an asystolic event in the ICU after arrival with return of ROSC without any intervention. He had agonal respirations with reduced mental status and was intubated. Patient
was taken to [facility] for temporary pacemaker placement.
Past Medical History
Past Medical History: Asthma, CAD, GERD, Hypercholesterolemia, Hypothyroidism and Other (Adrenal insufficiency, BPH)
Past Surgical History: Cholecystectomy and Other (Cataracts)
Social History
Tobacco: Non-smoker
Alcohol: None
Drug: None
Living: Assisted Living
Allergies / Home Medications
Allergies
Allergy/AdvReac Type Severity Reaction Status Date / Time
No Known Allergies Allergy Verified 07/02/23 11:26
Home Medications
�Medication �Instructions �Recorded �Confirmed �Last Taken �Type
lansoprazole 30 mg capsule,delayed 30 mg PO DAILY Gastrointestinal 05/25/08 07/24/23 07/24/23 History
release (Prevacid) issue
isosorbide mononitrate 30 mg 30 mg PO DAILY Heart 06/11/15 07/24/23 07/24/23 History
tablet,extended release 24 hr Disease/Condition
alendronate 70 mg tablet 70 mg PO WE@0600 osteoporosis 08/10/20 07/24/23 07/22/23 History
prednisone 5 mg tablet 5 mg PO .SEE BELOW asthma 08/10/20 07/24/23 07/23/23 History
tamsulosin 0.4 mg capsule 0.4 mg PO DAILY@1999 Urinary issue 08/10/20 07/24/23 07/23/23 History
finasteride 5 mg tablet 5 mg PO DAILY Urinary Issue 01/21/23 07/24/23 07/24/23 History
fluorouracil 5 % topical cream 1 applic topical BIDPRN PRN 01/21/23 07/24/23 Unknown History
actinic/solar keratoses
furosemide 40 mg tablet 40 mg PO DAILY Fluid 01/21/23 07/24/23 07/24/23 History
Retention/Swelling
triamcinolone acetonide 0.5 % 1 applic topical BIDPRN PRN skin 01/21/23 07/24/23 05/15/23 History
topical cream conditions
metformin 500 mg tablet 500 mg PO BID@0800,1600 Diabetes 05/25/23 07/24/23 07/24/23 History
acetaminophen 500 mg tablet 1,000 mg PO TIDPRN PRN mild pain 06/22/23 07/24/23 07/20/23 History
(Tylenol Extra Strength)
albuterol sulfate 2.5 mg/3 mL 2.5 mg inhalation R Q4HPRN PRN 06/22/23 07/24/23 Unknown History
(0.083 %) solution for nebulization cough/wheezing
atorvastatin 20 mg tablet 20 mg PO DAILY@1999 High 06/22/23 07/24/23 07/23/23 History
Cholesterol
calcium carbonate 600 mg PO DAILY@1999 Supplement 06/22/23 07/24/23 07/23/23 History
ferrous sulfate 325 mg (65 mg 325 mg PO NOON Supplement 06/22/23 07/24/23 07/23/23 History
iron) tablet (FeroSul)
levothyroxine 100 mcg tablet 100 mcg PO DAILY@0700 06/22/23 07/24/23 07/24/23 History
hypothyroidism
polyethylene glycol 3350 17 gram 17 g PO DAILY Constipation #30 ea 06/25/23 07/24/23 07/23/23 Rx
oral powder packet (Miralax)
ascorbic acid (vitamin C) 500 mg 500 mg PO NOON Supplement 07/02/23 07/24/23 07/23/23 History
tablet (Vitamin C)
aspirin 81 mg tablet,delayed 81 mg PO DAILY@1999 Blood Clot 07/02/23 07/24/23 07/23/23 History
release Prevention/Tx
cholecalciferol (vitamin D3) 25 25 mcg PO DAILY@1999 Supplement 07/02/23 07/24/23 07/23/23 History
mcg (1,000 unit) tablet
dextromethorphan-guaifenesin 10 5 ml PO Q6HPRN PRN cough 07/02/23 07/24/23 Unknown History
mg-100 mg/5 mL oral syrup
guaifenesin 600 mg tablet, 600 mg PO BIDPRN PRN cough or 07/02/23 07/24/23 07/21/23 History
extended release 12 hr (Mucinex) congestion
loperamide 2 mg capsule 2 mg PO QIDPRN PRN diarrhea 07/02/23 07/24/23 07/17/23 History
ciprofloxacin HCl 500 mg tablet 500 mg PO Q12H@08,199907/24/23 07/24/23 07/23/23 History
prednisone 10 mg tablet 10 mg PO .SEE BELOW 07/24/23 07/24/23 07/24/23 History
Review of Systems
-
Unable to Obtain full review of systems at this time due to: Patient Intubation
Vitals / Labs / Diagnostic Testing
Vital Signs
Temp Pulse Resp BP Pulse Ox
93.6 F L 71 20 108/64 93
07/24/23 13:06 07/24/23 13:46 07/24/23 13:46 07/24/23 13:46 07/24/23 13:46
Lab Data
07/24/23 09:41
Laboratory Results
07/24/23
09:41
PT 17.6 H
INR 1.47
Diagnostic Testing:
Physical Exam
-
HEENT: Normocephalic and Anicteric
Cardiovascular: S1/S2 and Regular Rhythm
Respiratory: Clear and Other (Intubated, mechanical ventilation)
GI: Soft and Non Distended
Neurology: Other (Sedated)
Assessment
-
78-year-old male, critically ill patient transferred to ICU from ER is in hypotension/ hypothermia possibly due to septic shock requiring pressors, and on mechanical ventilation for acute hypoxemic respiratory failure.
Labs and imaging:
WBC 20.4
Sodium 126, potassium 5.9
Creatinine 1.6, BUN 49
Glucose 43,
Lactate 2.8
Urine leukocyte esterase 2+, WBC, bacteria positive
EKG 07/24/2023 : NORMAL SINUS RHYTHM
LEFT AXIS DEVIATION
RIGHT BUNDLE BRANCH BLOCK
SEPTAL INFARCT (CITED ON OR BEFORE 02-JUL-2023)
ABNORMAL ECG
Chest x-ray 07/24/2023: The heart is of top normal size.
Patchy opacity is seen within the right midlung zone, unchanged compared to prior study. Possible left perihilar haziness is also appreciated.
No large pleural effusion or pneumothorax on either side.
Patient's chin obscures the left apex.
Echo 06/23/2023: LV ejection fraction is 55-60% by volumetric assessment.
Normal left ventricular size and systolic function.
Mild mitral regurgitation.
Mild tricuspid regurgitation.
Impression:
Acute hypoxemic respiratory failure, requiring mechanical ventilation
Septic shock
Cardiac arrhythmia
Metabolic acidosis with normal anion gap
Hypoglycemia
Complicated UTI
Acute kidney injury, with hyperkalemia and hyponatremia
Hypothermia
Hyperbilirubinemia
Chronic anemia
Conditions prior to admission:
CAD
GERD
Asthma
BPH
Reduced mental status
Chronic ambulatory dysfunction
Chronic anemia
Hypothyroidism
PLAN:
# Acute hypoxemic respiratory failure
Continue mechanical ventilation
Titrate PEEP and FiO2 to maintain SpO2 >94%,
Spontaneous breathing trial/spontaneous awakening trial when appropriate
Aspiration precautions
Trend ABG
# Septic shock
Possibly from UTI/pneumonia
Follow-up panculture-blood culture, endotracheal aspirate culture, urine culture
Urine streptococcal antigen, Legionella antigen
Continue antibiotics�Zosyn, vancomycin
MRSA screen if negative, discontinue vancomycin
Continue norepinephrine, maintaining MAP greater than 65
Trend lactate
Trend CBC, CMP
# Cardiac arrhythmia/asystole
Patient returned from [facility] after TVP placement, may need permanent pacemaker later
Bifascicular block
Further management deferred to cardiology
Monitor telemetry
# Metabolic acidosis with normal anion gap
Dextrose with bicarb drip
Trend ABG
# Acute kidney injury
IV fluids
Trend CMP
# Hypoglycemia
Maintain BG 140-180mg/dL , monitor serial Accu-Cheks
# Stress dose steroids
Hydrocortisone 50 mg IV every 6 for 3 days, taper from day 4
# Chronic anemia
Trend H&H
Transfuse if Hb less than 7, platelets less than 20 k
# GI stress ulcer prophylaxis
IV Protonix
# DVT prophylaxis
SC heparin
--- NOTE | 2023-07-24 14:31 | ITS.CL.PN ---
[facility] - Procedure Note
Procedure
Procedure Note:
TEMPORARY TRANSVENOUS PACEMAKER REPORT
Date of Procedure: 07/24/2023
Referring: Jack Reardon MD
Indication: Asked to emergently place temporary pacing wire as patient had 30 seconds of asystole with baseline bifascicular block and is status post cardiac arrest. Patient intubated and unable to consent. [place]-procedure done emergently with implied consent. Reportedly family member had been contacted successfully earlier and 'wanted everything done'
PROCEDURE SUMMARY:
Successful placement of transvenous pacemaker using a right femoral venous approach. Pacer tip in the RV apex with excellent threshold (0.6 mA)
DESCRIPTION OF PROCEDURE: This patient presented with suspected urosepsis and shock. He has baseline bifascicular block and had an episode in the emergency department of 30 seconds of asystole and then a second episode in the ICU. He is intubated
and critically ill. He is certainly not a candidate for a permanent pacemaker at this time. He was brought to the [facility] for placement of a temporary pacing wire.
Access was obtained via the right femoral vein on the first attempt using a micropuncture technique. A 7 Kyrgyz sheath was placed in the right femoral vein. A 7 Kyrgyz pacing catheter was then advanced to the right ventricular apex. Thresholds
were checked initially at 1mA and after the pacemaker was secured in position with sutures and Tegaderm the final threshold check showed capture lost at 0.6mA. The pacemaker was set to a backup rate of 40/min with output 10 mA on demand mode
Radiation (mGy): 142
DAP (cm2.Gy): 14.5
Fluoroscopy time: 1.7 minutes
CONCLUSIONS: Successful emergent placement of temporary pacemaker
Copy to: Jack Reardon MD
Lucho Cummings MD, [facility]
--- NOTE | 2023-07-24 14:40 | PHA.VAN.IN ---
Assessment
- Assessment
Renal Function: Appears elevated from baseline
Minimum Temperature: hypothermic 91.3
Concomitant Antimicrobials: piperacillin/tazobactam
- Previous Dosing Experience
Previous Regimen: 1250 mg q24h
Provided Trough of: 16.8
Patient's SCR is: Elevated compared to previous dosing experience
Plan
- Plan
Initial / Loading Dose: 2000 mg Loading dose - 07/24/23 ~1300
Maintenance Regimen: dose by random level for now due to elevated SCr and tenuous status
Pharmacokinetics Vancomycin I
- -
Patient Age: 78
Patient Sex: Male
Vancomycin Day #: 1
Indication: Pulmonary/Respiratory
Requesting Provider: Linda
Height / Weight:
Height 5 ft 3 in
Actual Weight 70.3 kg
Pertinent Past Medical History: COVID earlier this month; s/p cardiac arrest
- Vital Signs / Lab Results
Temp Pulse Resp BP Pulse Ox
93.6 F L 71 20 108/64 93
07/24/23 13:06 07/24/23 13:46 07/24/23 13:46 07/24/23 13:46 07/24/23 13:46
Lab Results - Hematology
07/24/23
09:41
WBC 20.4 H
Band Neutrophils 22 H
Lab Results - Chemistry
07/24/23 07/24/23
09:41 12:06
BUN 53 H 51 H
Creatinine 1.9 H 1.6 H
Albumin 3.0 L
07/24/23
09:41
Lactic Acid 2.8 H
Lab Results - Urine
07/24/23
09:41
Urine Nitrite (Reflex) Negative
Leukocyte Esterase Rfl 2+ A
Urine WBC (Reflex) 40-50 A
Ur Squamous Epith Cells 6-10
Urine Bacteria (Reflex) Moderate A
[2023-07-24] MEDS: SUBLIMAZE 50 MCG IV ×4 (15:02→23:08)
[2023-07-24 15:27] LABS: Glucose - Point of Care 71 mg/dl (70-99)
[2023-07-24 15:31] LABS: B.E. -8.6 mmol/L; O2 Saturation % 96.9 % (94-98); PCO2 41 mmHg (35-48); PO2 85 mmHg (83-108); pH 7.25 (7.35-7.45)
[2023-07-24] MEDS: HEPARIN 5000 UNITS SC ×2 (15:53→23:11)
[2023-07-24] MEDS: SOLU-CORTEF 100 MG IV (15:54)
[2023-07-24] MEDS: DIPRIVAN 100 IV (16:05)
[2023-07-24 16:09] LABS: Lactic Acid 1.6 mmol/L (0.7-2.0)
[2023-07-24 16:16] LABS: Blood Urea Nitrogen 49 mg/dl (9-20); Calcium 7.2 mg/dl (8.4-10.2); Carbon Dioxide 16 mmol/L (22-30); Chloride 107 mmol/L (98-107); Estimated Creatinine Clearance 32 ml/min; Glucose 74 mg/dl (70-99); Potassium 5.9 mmol/L (3.5-5.1); Sodium 126 mmol/L (135-145); Triglycerides 39 mg/dl (10-149); eGFR 44.38
[2023-07-24 16:24] LABS: Cortisol, Random > 123.0 ug/dl
[2023-07-24] MEDS: SODIUM BICARBONATE 1150 MEQ IV (16:56)
--- NOTE | 2023-07-24 18:00 | PTCARENOTE ---
Pt received back from film laboratory technician with transvenous pacer via right femoral venous sheath.
Sinus toño with PACs and PVCs and occasional V-paced beats.
Frequent vent alarms and SpO2 dropping to 88%. Fentanyl IVP given per prn order and propofol gtt started. Now tolerating ventilator.
Remains on Levophed and IVF.
+ soft brown stool.
No urine output since admission. Bladder scan 230ml. notified. Otero placed. Output milky peach color. Urine specimen sent.
All other assessments unchanged.
[2023-07-24] MEDS: NOVOLIN R 7 UNITS IV (18:41)
[2023-07-24 18:58] LABS: Glucose - Point of Care 106 mg/dl (70-99)
[2023-07-24] MEDS: DUONEB 3 ML INH (20:08)
[2023-07-24 22:10] LABS: INR 1.78; PT 20.6 Sec (11.4-14.6)
[2023-07-24 22:12] LABS: APTT 56.2 Sec (23.4-35.0)
[2023-07-24 22:19] LABS: Blood Urea Nitrogen 49 mg/dl (9-20); Carbon Dioxide 17 mmol/L (22-30); Chloride 104 mmol/L (98-107); Estimated Creatinine Clearance 32 ml/min; Glucose 130 mg/dl (70-99); Magnesium 1.6 mg/dl (1.6-2.3); Phosphorus 4.8 mg/dl (2.5-4.5); Sodium 126 mmol/L (135-145); eGFR 44.38
[2023-07-24] MEDS: CALCIUM CHLORIDE 10% SYRINGE 60 MG IV (23:10)
[2023-07-24] MEDS: SOLU-CORTEF 50 MG IV (23:12)
[2023-07-24 23:15] LABS: Glucose - Point of Care 164 mg/dl (70-99)
[2023-07-24] MEDS: MAGNESIUM SULFATE 100 IV (23:22)
--- NOTE | 2023-07-24 23:38 | PTCARENOTE ---
Pt received at 19:00. Intubated and sedated on propofol. Pt becomes agitated with care--biting on ETT and and restless, and does not follow commands. SR to sinus toño with frequent PVCs, occasional V-paced beats. R groin transvenous pacer, rate =
40, 10mA. DP and PT pulses present with doppler, palpable radial pulses. Levophed gtt continues, titrated to maintain MAP > 65. Core temp 94.3 at this time, gian hugger as ordered. ETT repositioned by POULTRY OFFAL ICER per CXR results, repeat CXR confirmed
placement after repositioning. #8 ETT, at 20cm on the R. AC 20/400/50%/+5. Breath sounds diminished bilaterally. Scant clear/bloody tinged secretions via ETT, moderate amount of thick clear secretions orally. Abdomen round, +bowel sounds. Otero in
place, cloudy lauren/blood tinged urine with sediment and occasional clots. Safe environment maintained, plan of care ongoing.
[2023-07-25] VITALS (44 sets, daily range): BP systolic 53–147; BP diastolic 30–92; BMI 28.6
[2023-07-25 03:27] LABS: B.E. -5.8 mmol/L; HCO3 19.4 mmol/L (21-28); O2 Saturation % 98.7 % (94-98); PCO2 36 mmHg (35-48); PO2 131 mmHg (83-108); pH 7.34 (7.35-7.45)
[2023-07-25 03:28] LABS: O2 Therapy 50%
[2023-07-25 03:29] LABS: Hemoglobin 7.2 g/dL (13.0-18.0); Mean Corp Hgb Conc. 34.6 g/dL (33.0-37.0); Mean Corpuscular Hgb 30.6 pg (27.0-31.0); Mean Corpuscular Volume 88.5 fL (80.0-94.0); Mean Platelet Volume 9.8 fL (7.4-10.4); Nucleated Red Blood Cells % 0.5 % (-); Platelet Count 114 10^3/uL (130-400); Red Blood Cell Count 2.35 10^6/uL (4.70-6.10); Red Cell Dist. Width 18.6 % (11.5-14.5); White Blood Cell Count 24.2 10^3/uL (4.8-10.8)
[2023-07-25 03:43] LABS: Hematocrit 20.8 % (39.0-52.0)
[2023-07-25 03:52] LABS: Blood Urea Nitrogen 47 mg/dl (9-20); Calcium 7.7 mg/dl (8.4-10.2); Carbon Dioxide 21 mmol/L (22-30); Chloride 101 mmol/L (98-107); Estimated Creatinine Clearance 32 ml/min; Glucose 102 mg/dl (70-99); Magnesium 1.8 mg/dl (1.6-2.3); Phosphorus 5.1 mg/dl (2.5-4.5); Potassium 5.5 mmol/L (3.5-5.1); Sodium 130 mmol/L (135-145); eGFR 44.38
[2023-07-25] MEDS: SUBLIMAZE 50 MCG IV ×3 (03:54→09:07)
[2023-07-25 03:57] LABS: Vancomycin Random 14.8 ug/ml
[2023-07-25] MEDS: SODIUM BICARBONATE 1150 MEQ IV (04:10)
[2023-07-25] MEDS: CALCIUM CHLORIDE 10% SYRINGE 60 MG IV (04:51)
[2023-07-25] MEDS: MAGNESIUM SULFATE 102 GRAMS IV (04:54)
--- NOTE | 2023-07-25 04:56 | PTCARENOTE ---
Pt converted to afib w/ RVR, HR 90s-130s. Levophed at 3mcg/min, MAP >65 maintained. EKG obtained. I-CARE ASSISTANT made aware, no further orders at this time.
[2023-07-25] MEDS: DIPRIVAN 100 IV (05:20)
[2023-07-25] MEDS: ZOSYN 50 IV (05:20)
[2023-07-25] MEDS: SOLU-CORTEF 50 MG IV (05:20)
[2023-07-25 05:25] LABS: Absolute Neutrophils -Man Diff 23.4 10^3/uL (1.4-6.5); Band Neutrophils 23 % (0-3); Lymphocytes 1 % (20-51); Monocytes 1 % (2-9); Segmented Neutrophils 74 % (42-75)
[2023-07-25 05:26] LABS: Metamyelocytes 1 % (-)
[2023-07-25 05:27] LABS: Anisocytosis 1+; Normal RBC Morphology No; Platelets Checked Yes; Toxic Granulation 1+
[2023-07-25 05:28] LABS: Ovalocytes Slight; Total Cells Counted 100
[2023-07-25] MEDS: DUONEB 3 ML INH (07:43)
[2023-07-25] MEDS: NSS (PRESERVATIVE FREE) 10 ML IV (08:07)
[2023-07-25] MEDS: PROTONIX IV 40 MG IV (08:07)
[2023-07-25] MEDS: HEPARIN 5000 UNITS SC (08:07)
--- NOTE | 2023-07-25 08:24 | W.PN.HOSP.TC ---
Today's Communication/Plan
-
Transitioned into comfort care.
Assessment / Plan
Assessment / Plan
Physical exam:
General: Acutely ill
HEENT: Normocephalic, Atraumatic and Moist Mucous Membranes
Respiratory: Coarse rhonchi in the right base; Negative Wheezes, Rales
Cardiac: Regular Rhythm and S1/S2
GI: Soft, Nontender and Nondistended
Musculoskeletal: No Clubbing, No Cyanosis and presence of bilateral edema
Neuro: Sedated on the vent earlier this morning.
A/P:
Impression:
Septic shock, aspiration pneumonia versus UTI
Cardiorespiratory arrest with asystole
Acute respiratory failure
Acute kidney injury
Adrenal insufficiency crisis
Severe hyponatremia
Hyperkalemia
Metabolic acidosis with lactic acidosis
Conditions present prior to admission:
Hypertension
Hyperlipidemia
CAD
Intellectual disability
Adrenal insufficiency
Bifascicular block
Valvulopathy
PLAN:
Discussed with orthotics prosthetics assistant today on 07/24
Discussion with brother took place today and now withdrawing aggressive measures and extubation today.
Placed on comfort care measures
Hospice care consulted
Transfer to [facility] to continue comfort care
CODE STATUS DNR
Anticipated Discharge: 24 - 48 hours
Subjective/Interval History
-
Date of Service: July 25, 2023
Patient seen and examined.
Objective Data
-
Labs:
Laboratory Results
07/24/23 07/25/23 07/25/23
21:55 03:18 10:00
WBC 24.2 H
Hgb 7.2 L
Hct 20.8 L*
Plt Count 114 L D
PT 20.6 H
INR 1.78
APTT 56.2 H
HCO3 19.4 L
Sodium 126 L 130 L Pending
Potassium 6.0 H 5.5 H Pending
Chloride 104 101 Pending
Carbon Dioxide 17 L 21 L Pending
BUN 49 H 47 H Pending
Creatinine 1.6 H 1.6 H Pending
Glucose 130 H 102 H Pending
Calcium 7.0 L 7.7 L Pending
Vital Signs:
Vital Signs
Temp Pulse Resp BP Pulse Ox
96.7 F L 124 26 121/89 95
07/25/23 07:00 07/25/23 06:15 07/25/23 06:15 07/25/23 06:15 07/25/23 06:15
I&O
07/24/23 07/25/23 07/26/23
06:59 06:59 06:59
Intake Total 4831.4 / 4990.6 159.2 / 159.2
Output Total 850 / 900 50 / 50
Balance 3981.4 / 4090.6 109.2 / 109.2
--- NOTE | 2023-07-25 08:57 | W.PN.INTV ---
Today's Communication / Plan
Recommendations
Extubate and withdrawal care, transition to full comfort care measures
Right-sided femoral vein TVP to be removed
Downgrade out of ICU to med-surg
Film Replacement Orderer/pulmonary service will now sign off. Please re-consult if there are any additional questions/concerns
Assessment
-
Assessment: 78-year-old M with PMHx of COVID-19, adrenal insufficiency, ambulatory dysfunction, CAD, ?asthma, GERD, anemia, and intellectual disability now p/w AMS and hypotension.� Pt hypothermic in ER to 91.3, HR 76, RR 22, BP 119/56 and SpO2
94%.� He previously was started on cipro and prednisone due to recent Dx of UTI and PNA.� While in the ER, he became asystolic for approx 30 seconds.� No CPR done and no drugs were given.� Pt hypotensive and he received 3L total of NS 0.9%,he
received IV vanco, solu-cortef 200mg, Zosyn, and due to VERNA with hyperkalemia he received D50, insulin and calcium gluconate.� BP remains in the 70s/40s, hence levophed was started.� Pt then TRX here to ICU for further management with Film Replacement Orderer
consulted for further recommendations.
Impression:
#Septic Shock due to UTI +/- pneumonia
#Complicated UTI
#Cardiac arrhythmia due to prolonged sinus pauses now s/p TVP
#Acute respiratory failure with hypoxemia now on mechanical ventilation
#Bifascicular block (RBBB + LAFB)
#Hypothermia
#VERNA with hyperkalemia
#Hyponatremia
#Hypoglycemia
#Metabolic acidosis with normal AG
#Hyperbilirubinemia
#Chronic anemia (baseline: 8.5-9)
Plan:
- Goals of care discussion held this morning with patient's brother, Abdirashid, and decision made to revert back to DNR/DNI and withdraw care and transition to comfort measures
- I answered all of Abdirashid's questions and emotional support was provided
- Will extubate now and start prn Dilaudid with prn Ativan and prn glycopyrrolate
- Remove TVP from right femoral groin (see separate update note for details)
- Stop antibiotics, stop vasopressors, stop stress dose steroids, stop blood draws and blood sugar checks and any other life-sustaining medications - transition to full comfort care
Will transition patient out of ICU to Med-Surg. Brother, Abdirashid, said that he will be coming here to the hospital if the patient is still here sometime early next week. He does not want us to continue life-sustaining medications just to 'buy a
some time.' Instead he wants to make sure that Rik is comfortable. I answered all of Abdirashid's questions and however he understands that the patient likely will have hours to days to live.
Film Replacement Orderer/pulmonary service will now sign off. Thank you for allowing us to be involved in the care of this patient. Please reconsult if there are any additional questions/concerns.
Total time spent today was 40 minutes for this encounter. Time includes reviewing laboratory test/imaging results, reviewing pertinent medical records, obtaining and reviewing medical history, performing an appropriate exam, ordering medications,
tests and procedures. Time also includes documentation of this encounter, coordinating patient care and communicating with other healthcare professionals. Total time does not include separately billed tests performed on this date of service.
Subjective Dataa
Subjective Data
Date of Service:
Date of Service: July 25, 2023
Chief Complaint: Film Replacement Orderer Follow Up
Subjective:
Patient seen and evaluated this morning. He was intubated/sedated with propofol. Conversation held between me and patient's brother, Abdirashid, and decision made to withdraw care. Please see my separate 'update note' for details. Patient was
extubated and transition to comfort care. Right groin TVP to be removed. Patient seems to be comfortable and in no acute distress.
Review of Systems
General: Unobtainable - Sedation
Objective Data
Data Reviewed
Vital Signs / I&O / Oxygen:
Vital Signs
Temp Pulse Resp BP Pulse Ox
96.7 F L 75 16 53/38 84
07/25/23 12:30 07/25/23 12:30 07/25/23 12:30 07/25/23 12:30 07/25/23 12:30
Intake and Output
07/24/23 07/25/23 07/26/23
06:59 06:59 06:59
Intake Total 4831.4 / 4990.6 689.0 / 689.0
Output Total 850 / 900 275 / 275
Balance 3981.4 / 4090.6 414.0 / 414.0
SaO2 [A/C] 95
SaO2 84
Nasal Cannula flow liters per 6
minute
Physical Exam
General: Respiratory Distress (Negative), Chills (Negative) and Other (Intubated/sedated)
HEENT: Normocephalic and Anicteric
Cardiovascular: S1-S2 and Peripheral Edema (+1 lower extremity pitting edema)
Respiratory: Wheeze (Negative), Crackles (Negative), Rhonchi, ET Tube and Other (Mechanical breath sounds heard bilaterally)
GI: Soft, Non Distended, Non Tender and Normal Bowel Sounds
Neurology: Tremors (Negative) and Other (Sedated)
Skin: Warm, Dry, Rash (Chronic venous stasis dermatitis seen bilaterally in lower extremities) and Bruising
Labs/Micro/Reports
Lab Data
07/25/23 03:18
07/25/23 10:29
Laboratory Results
07/24/23 07/24/23 07/25/23
15:24 21:55 03:18
PT 20.6 H
INR 1.78
APTT 56.2 H
pH 7.25 L 7.34 L
pCO2 41 36
pO2 85 131 H
HCO3 18.0 L 19.4 L
O2 Delivery Level 50%
Microbiology
07/24/23 09:41 Blood/Venous Blood Culture - Preliminary
Positive culture in progress
07/24/23 09:41 Blood/Venous Gram Stain - Preliminary
07/24/23 09:56 Blood/Venous Blood Culture - Preliminary
Positive culture in progress
07/24/23 09:56 Blood/Venous Gram Stain - Preliminary
07/24/23 15:46 Urine Urine Culture - Preliminary
Gram negative bacilli
07/24/23 09:41 Urine Urine Culture - Preliminary
Gram negative bacilli
07/24/23 15:46 Urine Legionella Urinary Antigen - Final
Negative for Legionella pneumophila Serogroup 1 antigen.
A negative result does not rule out the possiblity of
Legionella infection due to other serogroups or species of
Legionella. Clinical correlation is recommended.
07/24/23 15:46 Urine Streptococcus pneumoniae Antigen (M - Final
Negative for Streptococcus pneumoniae antigen.
A negative result does not exclude infection with
Streptococcus pneumoniae. Clinical correlation is
recommended.
--- NOTE | 2023-07-25 09:10 | PTCARENOTE ---
Updated assessment, vital sign trends ongoing and as documented. Patient attempt wean off sedation. Noted increase in heart rate, pip, resp rate and desynchronized with vent, bitting et tube, also noted increase in thick viscous carias/blood tinged
secretions, sample collected and sent. Patient remains in atrial fibrillation [id number]. Transvenous pace backup VVI rate 40bpm MA 10. Will follow plan of cv with cardiology ecg as noted on chart. Will follow up drip titration as per block/unit
based protocols. Skin cares, am cares, oral cares as per unit based protocols. Continue to explain all procedures and protocols. Maintain orientation and redirection. Update with social service team this am, await follow up with hospitalist and
rn bariatric to update brother.
--- NOTE | 2023-07-25 09:46 | W.CON.NEPH ---
Consultation
-
Date/Time Consultation Requested: July 25, 2023 7 AM
Date/Time Consultation Performed: July 25, 2023 9:30 AM
Requesting Provider: Dr. Portillo
Performing Provider: Dr. Hernandez
Reason for Consultation: Hyperkalemia
Medical History
-
Chief Complaint: Hyperkalemia, VERNA, metabolic acidosis, hypotension
History of Present Illness:
This is a 78-year-old gentleman who has intellectual disability lives in a custodial. 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 He has diabetes controlled with
metformin therapy and coronary artery disease on nitrate therapy. He had several hospitalizations in the last several months. All of them involve hypotension. In April he was diagnosed with adrenal insufficiency based on ACTH stim test and was
placed on slightly higher dose prednisone therapy. He was in the hospital 2 weeks ago with COVID-19 and completed a course of antiviral. He returned to the hospital for this admission with mental status change hypotension hypothermia. He was
placed on pressors which she remains on. He does have opacities in the lung and is on antibiotics empirically. During his hospitalization his potassium has remained elevated with metabolic acidosis. He also has acute kidney injury with creatinine
around 1.6 up from his baseline of 1.0. He is currently critically ill in the ICU.
Past Medical History
Hypertension hyperlipidemia coronary disease intellectual disability adrenal insufficiency DVT GERD asthma hypothyroidism BPH diverticulosis cholecystectomy cataract surgery gastric surgery eosinophilic pneumonitis
Social History
No tobacco no alcohol
Family History
Family History: Not Pertinent
Allergies / Home Medications
Allergy/AdvReac Type Severity Reaction Status Date / Time
No Known Allergies Allergy Verified 07/02/23 11:26
�Medication �Instructions �Recorded �Confirmed �Type
lansoprazole 30 mg capsule,delayed 30 mg PO DAILY Gastrointestinal 05/25/08 07/24/23 History
release (Prevacid) issue
isosorbide mononitrate 30 mg 30 mg PO DAILY Heart 06/11/15 07/24/23 History
tablet,extended release 24 hr Disease/Condition
alendronate 70 mg tablet 70 mg PO WE@0600 osteoporosis 08/10/20 07/24/23 History
prednisone 5 mg tablet 5 mg PO .SEE BELOW asthma 08/10/20 07/24/23 History
tamsulosin 0.4 mg capsule 0.4 mg PO DAILY@1999 Urinary issue 08/10/20 07/24/23 History
finasteride 5 mg tablet 5 mg PO DAILY Urinary Issue 01/21/23 07/24/23 History
fluorouracil 5 % topical cream 1 applic topical BIDPRN PRN 01/21/23 07/24/23 History
actinic/solar keratoses
furosemide 40 mg tablet 40 mg PO DAILY Fluid 01/21/23 07/24/23 History
Retention/Swelling
triamcinolone acetonide 0.5 % 1 applic topical BIDPRN PRN skin 01/21/23 07/24/23 History
topical cream conditions
metformin 500 mg tablet 500 mg PO BID@0800,1600 Diabetes 05/25/23 07/24/23 History
acetaminophen 500 mg tablet 1,000 mg PO TIDPRN PRN mild pain 06/22/23 07/24/23 History
(Tylenol Extra Strength)
albuterol sulfate 2.5 mg/3 mL 2.5 mg inhalation R Q4HPRN PRN 06/22/23 07/24/23 History
(0.083 %) solution for nebulization cough/wheezing
atorvastatin 20 mg tablet 20 mg PO DAILY@1999 High 06/22/23 07/24/23 History
Cholesterol
calcium carbonate 600 mg PO DAILY@1999 Supplement 06/22/23 07/24/23 History
ferrous sulfate 325 mg (65 mg 325 mg PO NOON Supplement 06/22/23 07/24/23 History
iron) tablet (FeroSul)
levothyroxine 100 mcg tablet 100 mcg PO DAILY@0700 06/22/23 07/24/23 History
hypothyroidism
polyethylene glycol 3350 17 gram 17 g PO DAILY Constipation #30 ea 06/25/23 07/24/23 Rx
oral powder packet (Miralax)
ascorbic acid (vitamin C) 500 mg 500 mg PO NOON Supplement 07/02/23 07/24/23 History
tablet (Vitamin C)
aspirin 81 mg tablet,delayed 81 mg PO DAILY@1999 Blood Clot 07/02/23 07/24/23 History
release Prevention/Tx
cholecalciferol (vitamin D3) 25 25 mcg PO DAILY@1999 Supplement 07/02/23 07/24/23 History
mcg (1,000 unit) tablet
dextromethorphan-guaifenesin 10 5 ml PO Q6HPRN PRN cough 07/02/23 07/24/23 History
mg-100 mg/5 mL oral syrup
guaifenesin 600 mg tablet, 600 mg PO BIDPRN PRN cough or 07/02/23 07/24/23 History
extended release 12 hr (Mucinex) congestion
loperamide 2 mg capsule 2 mg PO QIDPRN PRN diarrhea 07/02/23 07/24/23 History
ciprofloxacin HCl 500 mg tablet 500 mg PO Q12H@0800,199907/24/23 07/24/23 History
prednisone 10 mg tablet 10 mg PO .SEE BELOW 07/24/23 07/24/23 History
Review of Systems
-
Cannot be obtained given the patient's sedated status
Physical Exam
Vital Signs
Vital Signs
Temp Pulse Resp BP Pulse Ox
97.3 F 136 22 127/70 97
07/25/23 09:00 07/25/23 09:00 07/25/23 09:00 07/25/23 09:00 07/25/23 09:00
Lab Results
WBC 24.2 10^3/uL (4.8-10.8) H 07/25/23 03:18
RBC 2.35 10^6/uL (4.70-6.10) L 07/25/23 03:18
Hgb 7.2 g/dL (13.0-18.0) L 07/25/23 03:18
Hct 20.8 % (39.0-52.0) L* 07/25/23 03:18
Plt Count 114 10^3/uL (130-400) L D 07/25/23 03:18
eGFR 44.38 07/25/23 03:18
Phosphorus 5.1 mg/dl (2.5-4.5) H 07/25/23 03:18
Albumin 3.0 g/dl (3.5-5.0) L 07/24/23 09:41
Physical Exam
General: No Distress
HEENT: PERRL, Anicteric, Conjunctivae Clear, Oropharynx Clear/Moist, Neck Supple, Trachea Midline, No JVD and No Thyromegaly
Respiratory: Rhonchi
Cardiac: Regular Rate/Rhythm
Abdomen: Soft, Nontender, Nondistended, Normal Bowel Sounds and No Hepatosplenomegaly
Musculoskeletal: Edema
Skin: No Rash and No Cyanosis
Assessment/Plan
-
Assessment:
Acute kidney injury
Hyperkalemia
Metabolic acidosis
Acute anemia
Hypotension
Adrenal insufficiency
Gram-negative xavier sepsis
Temporary pacer for asystole
Atrial fibrillation
Coronary disease
Plan:
Stress dose steroids will be continued at this time.
When he is weaned he should be converted to hydrocortisone and Florinef instead of prednisone
Pressors will be continued to maintain mean arterial pressure greater than 65
Follow-up basic metabolic panel
Potassium will be treated medically. If enteric access may be obtained Lokelma will be used
For medical management of hyperkalemia otherwise.
IV fluids with bicarbonate will be continued at this time for his nonanion gap metabolic acidosis
Treatment of his adrenal insufficiency should correct electrolyte imbalance
Critical care time spent 40 minutes
Data Reviewed
-
Radiology: Image Personally Visualized and interpreted (Chest x-ray on 07/24/2023 by read shows bilateral calyces)
Medical Tests (Nuc Med, Echo etc): Image Personally Visualized and interpreted (EKG on 07/25/2023 by my reading shows A-fib rapid ventricular rate left axis deviation right bundle branch block septal Q)
Labs: Labs Reviewed by me
Old Records: Reviewed (Creatinine on 07/08/2023 1.0)
--- NOTE | 2023-07-25 09:46 | PTCARENOTE ---
Update with nephrology at bedside. Will follow up lab trends, possible gastric access thru shift and overall trends in assessment.
--- NOTE | 2023-07-25 09:59 | PHA.VAN.FU ---
Vancomycin Assessment / Plan
- Assessment
Renal Function: Stable
WBC's are: Trending Up
In the past 24 hrs, patient has been: Hypothermic (Tmin = 96.7)
Concomitant Antimicrobials: Piperacillin-tazobactam
- Assessment - Therapeutic Drug Monitoring
Random Level: R = 14.8 ~ 16.5hrs post Vanc 2gm dose
- Dosing Plan
Continue: Dosing by level
Dosing by Level: Hold off on dosing today
- Monitoring Plan
Random Level: 07/25 AM
- Follow Up
Pharmacy will continue to follow.
Vancomycin Follow UP
- -
Patient Age: 78
Patient Sex: Male
Vancomycin Day #: 2
Indication: Pulmonary/Respiratory
Requesting Provider: Linda
Height / Weight:
Height 5 ft 3 in
Actual Weight 73.1 kg
Pertinent Past Medical History: COVID earlier this month; s/p cardiac arrest
- Vital Signs / Lab Results
Temp Pulse Resp BP Pulse Ox
97.3 F 136 22 127/70 97
07/25/23 09:00 07/25/23 09:00 07/25/23 09:00 07/25/23 09:00 07/25/23 09:00
Lab Results - Hematology
07/24/23 07/25/23
09:41 03:18
WBC 20.4 H 24.2 H
Band Neutrophils 22 H 23 H
Lab Results - Chemistry
07/24/23 07/24/23 07/24/23
09:41 12:06 15:46
BUN 53 H 51 H 49 H
Creatinine 1.9 H 1.6 H 1.6 H
Estimated Creat Clear 32
Albumin 3.0 L
07/24/23 07/25/23
21:55 03:18
BUN 49 H 47 H
Creatinine 1.6 H 1.6 H
Estimated Creat Clear 32 32
Albumin
07/24/23 07/24/23
09:41 15:46
Lactic Acid 2.8 H 1.6
Lab Results - Urine
07/24/23
09:41
Urine Nitrite (Reflex) Negative
Leukocyte Esterase Rfl 2+ A
Ur Squamous Epith Cells 6-10
Microbiology Results
07/24/23 09:41 Urine Culture - Preliminary
Urine Gram negative bacilli
07/24/23 09:41 Blood Culture - Preliminary
Blood/Venous Positive culture in progress
Gram Stain - Preliminary
07/24/23 09:56 Blood Culture - Preliminary
Blood/Venous Positive culture in progress
Gram Stain - Preliminary
07/24/23 15:46 Legionella Urinary Antigen - Final
Urine Negative for Legionella pneumophila Serogroup 1 antigen.
A negative result does not rule out the possiblity of
Legionella infection due to other serogroups or species of
Legionella. Clinical correlation is recommended.
Streptococcus pneumoniae Antigen (M - Final
Negative for Streptococcus pneumoniae antigen.
A negative result does not exclude infection with
Streptococcus pneumoniae. Clinical correlation is
recommended.
Therapeutic Drug Monitoring
Random Vancomycin 14.8 ug/ml 07/25/23 03:18
--- NOTE | 2023-07-25 10:21 | PTCARENOTE ---
Working with non cdl driver team, social service team, coordinator, family and previous facility to clarify patient goals of care, level of cares, DNR status and Family wishes await update with family via phone.
--- NOTE | 2023-07-25 10:42 | W.PN.UPDATE ---
Update Note
Progress Note Update
Had extensive conversation with patient's brother, Abdirashid, and he would like to revert back on his decision to rescind his living will and now make the patient DNR/DNI. I discussed the critically ill state of Rik including his respiratory
failure, kidney failure, and now seemingly lethal arrhythmia requiring a temporary pacing wire with eventual need for permanent pacemaker. Abdirashid does not want Rik to remain on the ventilator, he also is not interested in continuing any
life-sustaining medications as he believes that Rik is going to continue a vicious cycle of remaining ill and continuing to slowly decline if we prolong his suffering with antibiotics, pressors, and quite possibly dialysis if kidney function
continues to deteriorate. I explained to Abdirashid that we will now take Rik off the ventilator, and transition to comfort care. Abdirashid was in agreement. He will be coming here to the [facility] to visit for Lovell and endorsed on hospital
sometime early next week, and he does not want us to prolong suffering with life-sustaining medications until that time. I explained that this means that Rik will likely pass away within hours to days after taking him off the ventilator and
stopping any vasopressors and the temporary pacer, and Abdirashid understood this completely and was in agreement with this plan. Emotional support was provided, and I answered all of his questions.
[2023-07-25 11:06] LABS: Blood Urea Nitrogen 47 mg/dl (9-20); Calcium 8.4 mg/dl (8.4-10.2); Carbon Dioxide 20 mmol/L (22-30); Chloride 103 mmol/L (98-107); Estimated Creatinine Clearance 30 ml/min; Glucose 153 mg/dl (70-99); Potassium 5.9 mmol/L (3.5-5.1); Sodium 127 mmol/L (135-145); eGFR 41.26
--- NOTE | 2023-07-25 11:39 | PTCARENOTE ---
Multiple updates with critical care team. Plan for extubation withdraw of cares. Follow end of life protocols. Follow up with family on phone and follow wishes to maintain comfort, dnr, dni. Update cardiology and nephrology, channel installer in and out
at bedside. Comfort measures on going.
[2023-07-25] MEDS: DILAUDID 0.5 MG IV ×3 (11:42→16:24)
--- NOTE | 2023-07-25 11:55 | PTCARENOTE ---
Dr Reardon at bedside. Update DNR/DNI and comfort measures. Continue to update as needed. Comfort measures on going. Respiratory cares team at bedside extubated will continue to monitor pain and dyspnea.
[2023-07-25] MEDS: ROBINUL 0.200000000000000011 MG IV (12:43)
--- NOTE | 2023-07-25 13:04 | CM ---
CM following re: discharge planning.
Reviewed pt's chart, met with pt. CM spoke two times today with José Miguel Flores, Chief Concierge [employer] (ph [phone]) and in the morning she is requested MD to call pt's brother Abdirashid who lives in [place] ph [phone] to
discuss a goals of care and she stated she spoke to pt's brother now and she is aware of the request for pt's comfort care. José Miguel Flores stated that pt's brother was aware of pt's declining and he did not want to see pt suffering. Emotional
support offered and provided.
José Miguel Flores stated that pt has prepaid arrangements, she dos not have that information with her and she will provide it to when needed.
D/C plan: comfort care
CM is available for emotional support.
--- NOTE | 2023-07-25 13:50 | W.PN.UPDATE ---
Update Note
Progress Note Update
Right-sided TVP was removed by me. Pressure held to right femoral vein with complete hemostasis achieved. Topical hemostat applied and covered with adhesive bandage and this was covered with ABD gauze and that was covered with tape. Patient
tolerated procedure well. [facility].
--- NOTE | 2023-07-25 14:07 | PTCARENOTE ---
Dc'd central access, Update plan of comfort update transfer to [facility] team.
--- NOTE | 2023-07-25 15:06 | CHAP ---
Mr. Alcaraz opened his eyes but was unresponsive. I spoke gently at bedside, offering words of comfort and reassurance and asking God's blessings for Mr. Alcaraz.
[2023-07-25] MEDS: ATIVAN 0.5 MG IV (16:29)
[2023-07-25] MEDS: NSS (PRESERVATIVE FREE) 0.25 ML IV (16:30)
--- NOTE | 2023-07-26 08:10 | W.PN.HOSP.TC ---
Addendum entered and electronically signed by Mateus Mckeon MD 07/29/23 07:51:
Toxic metabolic encephalopathy
Original Note:
Today's Communication/Plan
-
Continue comfort measures.
Assessment / Plan
Assessment / Plan
Physical exam:
General: Acutely ill but appears comfortable
HEENT: Normocephalic, Atraumatic and Moist Mucous Membranes
Respiratory: Coarse rhonchi in the right base; Negative Wheezes, Rales
Cardiac: Regular Rhythm and S1/S2
GI: Soft, Nontender and Nondistended
Musculoskeletal: No Clubbing, No Cyanosis and presence of bilateral edema
Neuro: Awake but lethargic and minimally responsive but does move all 4 extremities
A/P:
Impression:
Septic shock, aspiration pneumonia and UTI
Cardiorespiratory arrest with asystole
Acute respiratory failure
Acute kidney injury
Adrenal insufficiency crisis
Severe hyponatremia
Hyperkalemia
Metabolic acidosis with lactic acidosis
Conditions present prior to admission:
Hypertension
Hyperlipidemia
CAD
Intellectual disability
Adrenal insufficiency
Bifascicular block
Valvulopathy
PLAN:
Currently on Dilaudid as needed
Dilaudid drip ordered as needed but currently no need for it--> reevaluate over the next 24-48 hours
Ativan as needed
Robinul as needed
Dulcolax as needed
Discussion with brother took place and now on comfort care measures.
Hospice care consulted--> discussed with hospice nurse and they are in discussion with family and implementing comfort care measures.
Discussed with RN today on 07/25
CODE STATUS DNR
Anticipated Discharge: 24 - 48 hours
Subjective/Interval History
-
Date of Service: July 26, 2023
Patient seen and examined today.
Objective Data
-
Vital Signs:
Vital Signs
Temp Pulse Resp BP Pulse Ox
97.5 F 86 22 110/54 90
07/26/23 07:10 07/26/23 07:10 07/26/23 07:10 07/25/23 23:38 07/26/23 07:10
I&O
07/25/23 07/26/23 07/27/23
06:59 06:59 06:59
Intake Total 4831.4 / 4990.6 689.0 / 689.0
Output Total 850 / 900 525 / 525
Balance 3981.4 / 4090.6 164.0 / 164.0
[2023-07-26] MEDS: DILAUDID 0.5 MG IV ×4 (09:25→21:25)
[2023-07-26] MEDS: ATIVAN 0.5 MG IV ×3 (09:36→21:25)
[2023-07-26] MEDS: NSS (PRESERVATIVE FREE) 0.25 ML IV ×3 (09:36→21:25)
[2023-07-26] MEDS: ROBINUL 0.200000000000000011 MG IV ×2 (09:36→16:38)
--- NOTE | 2023-07-26 11:13 | HOSPNOTE ---
Referral received. Spoke to patients brothsandy Mendenhall. He is in agreement with inpatient hospice services. Consents can be e-mailed to him for signature. Will confirm inpatient hospice eligibility 07/27/23 in the am and if appropriate, will sign patient
onto inpatient hospice. CM and Attending updated and in agreement.
--- NOTE | 2023-07-26 14:49 | CM ---
Per MD consult: Hospice referral forwarded to Hospice.
[2023-07-26 19:03] VITALS: BP 90/43
[2023-07-27] MEDS: DILAUDID 0.5 MG IV ×4 (00:06→08:59)
[2023-07-27] MEDS: ATIVAN 0.5 MG IV (02:02)
[2023-07-27] MEDS: NSS (PRESERVATIVE FREE) 0.25 ML IV (02:02)
[2023-07-27] MEDS: DILAUDID 50 IV (04:29)
[2023-07-27] MEDS: DILAUDID 1 MG IV ×5 (05:31→14:32)
[2023-07-27 07:00] VITALS: BP 80/45
--- NOTE | 2023-07-27 11:43 | W.PN.HOSP.TC ---
Today's Communication/Plan
-
Continue comfort measures
Assessment / Plan
Assessment / Plan
Physical exam:
General: Acutely ill but appears comfortable, unarousable
HEENT: Normocephalic, Atraumatic and Moist Mucous Membranes
Respiratory: Coarse rhonchi in the right base; Negative Wheezes, Rales
Cardiac: Regular Rhythm and S1/S2
GI: Soft, Nontender and Nondistended
Musculoskeletal: No Clubbing, No Cyanosis and presence of bilateral edema
Septic shock, aspiration pneumonia and UTI
Cardiorespiratory arrest with asystole
Acute respiratory failure
Acute kidney injury
Adrenal insufficiency crisis
Severe hyponatremia
Hyperkalemia
Metabolic acidosis with lactic acidosis
Conditions present prior to admission:
Hypertension
Hyperlipidemia
CAD
Intellectual disability
Adrenal insufficiency
Bifascicular block
Valvulopathy
PLAN:
Continue comfort measures. Continue IV Dilaudid infusion, currently 1 mg/h. Titrate for comfort. Patient is actively dying. Discussed with hospice nurse and nursing at the bedside. Patient's brother who is located in [place] is in agreement with
comfort measures. He is aware that Rik is actively dying.
Ativan as needed
Robinul as needed
Dulcolax as needed
Discussion with brother took place and now on comfort care measures.
Hospice care consulted--> discussed with hospice nurse and they are in discussion with family and implementing comfort care measures.
Discussed with RN today on 07/25
CODE STATUS DNR
Anticipated Discharge: Today
Subjective/Interval History
-
Date of Service: July 27, 2023
Patient seen and examined. Comatose but looks comfortable.
Objective Data
-
Vital Signs:
Vital Signs
Temp Pulse Resp BP Pulse Ox
97.3 F 79 10 80/45 96
07/27/23 07:00 07/27/23 07:00 07/27/23 07:00 07/27/23 07:00 07/27/23 07:00
I&O
07/26/23 07/27/23 07/28/23
06:59 06:59 06:59
Intake Total 689.0 / 689.0
Output Total 525 / 525 150 / 150
Balance 164.0 / 164.0 -150 / -150
Review of Systems
-
Unable to obtain full review of systems at this time due to: Acuity
--- NOTE | 2023-07-27 11:45 | CM ---
Patient on comfort measures. Anticipate transition to inpatient hospice. Report given to RN at [facility].
--- NOTE | 2023-07-27 15:41 | W.PN.DEATH ---
Pronouncement of
-
Called to see patient to pronounce.
No spontaneous heart tones or respirations noted.
Patient not responsive to verbal stimuli.
Patient is pronounced .
Time of : 15:25
Date of : 07/27/23
Cause of : septic shock due to aspiration pneumonia
Family Notified: Yes
--- NOTE | 2023-07-27 15:46 | PTCARENOTE ---
Pt pronounced at 1525. Dilaudid gtt stopped. IVs and Otero removed. [facility] called. Physician to notify family.
--- NOTE | 2023-07-27 17:15 | PN.CDI ---
CDI
- -
CDI:
Physician Documentation Request
Admit Date: 07/24/23 11:55
Dear Doctor,
Please review the following and provide your response in the progress notes.
Clinical Indicators:
Pt admitted with septic shock 2/2 UTI/aspiration PNA/Acute Hypoxic Resp failure intubated/ Cardiac arrest /Hx of intellectual disability
Documented per ED, ' Neuro: Minimally responsive to noxious stimuli...Reason For Exam: mental status change...'
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 Uncooperative... He had agonal respirations with reduced mental status and was intubated. Patient was taken to [facility] for temporary pacemaker placement.'
Patient care note 07/23 @ 1306, ' Pt admitted to ICU bed 3368 from ED. ...Pt minimally responsive. ...'
Patient care note 07/23 @ 2338,' Pt becomes agitated with care--biting on ETT and and restless, and does not follow commands...'
Based on the above, could you clarify in the Progress Notes and Discharge Summary which, if any of the following, is the most likely etiology of the confusion/altered mental status.
Metabolic Encephalopathy
Toxic Metabolic encephalopathy
Intellectual disability only
Other
Use of terms such as suspected, likely, concern for, or probable (associated with a specific diagnosis that is being evaluated, monitored, or treated as if it exists) are acceptable and can be coded in the inpatient setting, when documented at the
time of discharge.
Thank you,
Gabriela Langston RN
CDI Specialist
[facility]
Please use your independent medical judgment in providing your response.
--- NOTE | 2023-07-28 09:16 | CM ---
Patient on 07/27/23 @ 3:25PM.
== END 2023-07-27 15:25 | disposition expired | DRG 871 ==
LOC: 2 NORTH 11:55
PROVIDERS: Internal Medicine Cardiovascular Disease; Nurse Practitioner Primary Care; Physician Assistant; ADMITTING PHYSICIAN Hospitalist; ATTENDING PHYSICIAN Hospitalist; CONSULT PHYSICIAN Internal Medicine; CONSULT PHYSICIAN Internal Medicine Critical Care Medicine; CONSULT PHYSICIAN Specialist; EMERGENCY PHYSICIAN Emergency Medicine; FAMILY PHYSICIAN Internal Medicine
PROC: 5A1945Z Respiratory Ventilation, 24-96 Consecutive Hours (ICD-10-PCS; 2023-07-24)
PROC: 5A1223Z Performance of Cardiac Pacing, Continuous (ICD-10-PCS; 2023-07-24)
DX: A41.50 Gram-negative sepsis, unspecified (principal); G92.8 Other toxic encephalopathy; J69.0 Pneumonitis due to inhalation of food and vomit; R65.21 Severe sepsis with septic shock; J96.01 Acute respiratory failure with hypoxia; N17.9 Acute kidney failure, unspecified; E87.1 Hypo-osmolality and hyponatremia; E87.20 Acidosis, unspecified; N39.0 Urinary tract infection, site not specified; I45.2 Bifascicular block; E27.40 Unspecified adrenocortical insufficiency; E03.9 Hypothyroidism, unspecified; Z79.82 Long term (current) use of aspirin; E87.5 Hyperkalemia; I10 Essential (primary) hypertension; E11.36 Type 2 diabetes mellitus with diabetic cataract; E11.649 Type 2 diabetes mellitus with hypoglycemia without coma; D64.9 Anemia, unspecified; Z51.5 Encounter for palliative care; E78.00 Pure hypercholesterolemia, unspecified; Z66 Do not resuscitate; I46.8 Cardiac arrest due to other underlying condition
CPT/HCPCS: 33210; 36600; 51701; 71045; 71046; 80048; 80053; 80202; 81003; 81015; 82533; 82805; 82962; 83605; 83735; 84100; 84443; 84478; 85025; 85610; 85730; 87040; 87070; 87077; 87086; 87186; 87205; 87449; 87899; 93005; 94002; 94003; 94640; 96365; 96366; 96367; 96375; 99291